=== PATIENT | male | born 1955 | race Caucasian/White ===

== ENCOUNTER 2017-06-28 08:30 | Inpatient (IN) | payer OTHER ==
[2017-06-28 09:09] LABS: ALT (SGPT) 25 U/L (8-55); AST (SGOT) 27 U/L (5-34); Albumin 3.5 g/dL (3.4-4.8); Alkaline Phosphatase 85 U/L (40-150); Anion Gap 14 mmol/L (10-20); BUN (Urea Nitrogen) 35 mg/dL (8.4-25.7); Calc. Creatinine Clearance 0 mL/min (70-130); Carbon Dioxide 21 mmol/L (23-31); Chloride 101 mmol/L (98-107); Estimated GFR-MDRD 21; Glucose 186 mg/dL (80-115); Protein, Total 6.5 g/dL (5.8-8.1); Sodium 133 mmol/L (136-145)
[2017-06-28] MEDS ORDERED: Piperacillin/Tazobactam 4.5 GM in Sodium Chloride 0.9% 100 ML IVPB SCH (09:15)
[2017-06-28 09:23] LABS: Band 65 % (5-11); Hemoglobin 14.3 g/dL (14.0-18.0); Lymphocytes 3 % (21-51); MDiff Complete? YES; Mean Corpuscular HGB CONC 34.5 g/dL (32.0-36.0); Mean Corpuscular Hemoglobin 32.2 pg (27.0-31.0); Mean Corpuscular Volume 93.4 fl (80.0-94.0); Mean Platelet Volume 8.1 fL (7.4-10.4); Metamyelocyte 5 % (0-0); Monocytes 3 % (0-10); Neutrophil 24 % (42-75); PLT Morphology Comment Appears Adequate; Platelet Count 159 thou/uL (130-400); Polychromasia SLIGHT = 2-3 cells (100X) (0-2/hpf); RBC Distribution Width 12.1 % (11.5-14.5); Red Blood Cell (RBC) Count 4.44 mill/uL (4.70-6.10); Reflex for Review?? YES; Vacuoles MODERATE; White Blood Cell (WBC) Count 8.1 thou/uL (4.8-10.8)
--- NOTE | 2017-06-28 09:46 | RAD ---
AP CHEST: Indication: Cough. Comparison: None. IMPRESSION: No consolidation is evident. There is mild cardiomegaly. No pleural effusion is evident. No acute oss eous abnormality is evident. No acute cardiopulmonary abnormality is grossly evident. POS: [facility]
[2017-06-28] MEDS ORDERED: Norepinephrine 8 MG/0.9% NS 250 ML ONE (10:45)
[2017-06-28] MEDS ORDERED: Potassium Chloride 20 MEQ TAB ONE (11:01)
--- NOTE | 2017-06-28 11:47 | ULT ---
TESTICULAR ULTRASOUND: 06/28/2017 HISTORY: Scrotal swelling and pain. TECHNIQUE: Multiple longitudinal and transverse images of the scrotum are obtained using a Multi-Hertz linear ar ray transducer. Real-time, color-flow, and spectral wave-form Doppler analysis demonstrates abnormal thickening of the scrotum, measuring 1.7 cm on the right and 1.3 cm on the left. Small left-sided and right-sided hydroceles are seen. Both testicles are of normal contour, axis, and size. The right testicle measures 2.3 x 3.4 x 2.6 cm , and the left testicle measures 2.8 x 3.7 x 2.1 cm. Good flow is seen in the right and left testicl es. The epididymides are visualized bilaterally. The right epididymis measures 1.3 x 0.8 x 1.0 cm, and t he left epididymis measures 0.8 x 0.7 x 0.5 cm. IMPRESSION: 1. No evidence of testicular masses or lesions. 2. Diffuse scrotal thickening. This may represent cellulitis or an inflammatory process. Correlate with clinical examination. POS: [facility]
[2017-06-28] MEDS ORDERED: Ibuprofen 800 MG TAB ONE (12:06)
[2017-06-28] MEDS ORDERED: Norepinephrine 8 MG/0.9% NS 250 ML IVPB PRN (12:45)
[2017-06-28] MEDS ORDERED: VANCOMYCIN IVPB PRN (12:52)
[2017-06-28 13:01] LABS: Lactic Acid 3.8 mmol/L (0.5-2.2)
[2017-06-28] MEDS ORDERED: Benzonatate 100 MG CAP PO PRN (14:18)
[2017-06-28] MEDS ORDERED: Guaifenesin DM 100-10/5 ML UDCUP PO PRN (14:18)
[2017-06-28 16:16] LABS: Bilirubin Negative (Negative); Blood, Urine Moderate (Negative); Clarity CLOUDY (Clear); Glucose, Urine (Dipstick) Negative (Negative); Leukocyte Small (Negative); Nitrite Negative (Negative); Protein, Urine (Dipstick) 100 mg/dL (Neg-Trace); Specific Gravity, Urine 1.019 (1.002-1.036); Urobilinogen 0.2 mg/dL (0.2-1.0); pH, Urine 5.5 (5.0-9.0)
[2017-06-28] MEDS: Vancomycin HCl 25 MG/ML Oral PO SCH ×2 (16:16→21:58)
[2017-06-28] MEDS: Dextrose 5 % And 0.9 % NaCl 1,000 ML IV SCH (16:17)
[2017-06-28 16:18] LABS: WBC/HPF 21-50 HPF (0-3)
[2017-06-28 16:19] LABS: Pathc Cast-AUWi Flag 3.77 (0-2.49)
[2017-06-28] MEDS: Hydrocortisone Sod Succ/PF 100 mg/2 ml Vial IVP SCH ×2 (16:20→21:59)
[2017-06-28 16:57] LABS: Bacteria/HPF 1+ HPF (None Seen); Hyaline Casts/LPF 0-3 HYALINE CAST LPF (0-3 Hyaline); Manual Microscopic Reviewed? No Path Casts Seen; Renal Epithelial None Seen HPF (0-3); Transitional Epithelial NONE SEEN HPF (0-3)
[2017-06-28] MEDS: Morphine 4 MG/ML VIAL SLOW IVP PRN (17:18)
[2017-06-28] MEDS: Norepinephrine 8 MG in Sodium Chloride 0.9% 250 ML 250 ML IVPB PRN (17:46)
[2017-06-28 18:33] LABS: Lactic Acid 3.2 mmol/L (0.5-2.2)
[2017-06-28] MEDS: Piperacillin/Tazobactam 3.375 GM in Sodium Chloride 0.9% 100 ML IVPB SCH (18:45)
--- NOTE | 2017-06-28 19:02 | ULT ---
ULTRASOUND RENAL BILATERAL STANDARD 06/28/17 HISTORY: Acute kidney injury. COMPARISON: None. FINDINGS: Real time hamilton scale and color evaluation of the kidneys was performed. The hepatic echotexture is diffusely increased. Right kidney measures 12.5 x 5.3 x 5.4 cm without mas s, hydronephrosis or abnormal calcifications. The left kidney measures 12.8 x 5.90 x 5.6 cm without m ass, hydronephrosis or abnormal calcifications. The urinary bladder is not seen and is decompressed w ith Mejia catheter. IMPRESSION: 1. No evidence of obstructive uropathy. 2. Increased hepatic echotexture suggesting steatosis or cirrhosis. POS: [facility]
--- NOTE | 2017-06-28 19:37 | CON ---
DATE OF CONSULTATION: 06/28/2017 SERVICE: Pulmonary Medicine. REASON FOR CONSULTATION: Septic shock. HISTORY OF PRESENT ILLNESS: The patient is a 62-year-old white male with past medical history significant for 7-8 day history of diarrhea. He had a 4-day history of increasing erythema, pain, and swelling in the scrotal region. He did not tell anybody about this and his family. They suggested that he seek medical attention, but he refused. Ultimately, he became disoriented and confused. His walk around his apartment naked. This completely uncharacteristic for him. He was subsequently brought to the Emergency Department where he was found to be hypotensive. He had acute kidney injury and then findings consistent with septic shock. He got over 4 liters of IV fluids. He was given some broad-spectrum antibiotics and put on Levophed. A femoral line was placed. With this, his mentation improved slightly. He denies any current fevers, chills, nausea, vomiting or chest discomfort. He is breathing comfortably, but apparently has been coughing up a significant amount of sputum over the past week or so. PAST MEDICAL HISTORY: 1. Hypertension. 2. Dyslipidemia. 3. Major depressive disorder. PAST SURGICAL HISTORY: Appendectomy. SOCIAL HISTORY: Negative for alcohol, tobacco or illicit drug use. He denies any exposure to chemicals, dust, asbestos, or tuberculosis. FAMILY HISTORY: Noncontributory. ALLERGIES: No known drug allergies. MEDICATION LIST: His inpatient medications were reviewed and modified. REVIEW OF SYSTEMS: General, head, ears, eyes, nose, throat, cardiovascular, respiratory, GI, , musculoskeletal, neurologic and skin is negative except as mentioned in the HPI. PHYSICAL EXAMINATION: VITAL SIGNS: Afebrile, pulse 98, blood pressure 117/74, respirations 24, saturation 100% on room air. GENERAL: The patient is awake and alert. He is conversive. He does not appear to be in any distress other than with manipulation of his general region. HEENT: Normocephalic, atraumatic. Sclerae are white, conjunctivae pink. Oral mucosa is moist without lesions. LUNGS: Excellent air entry. There is minimal dependent crackles present. No prolonged expiratory phase or wheezing is appreciated. HEART: Normal rate, regular. ABDOMEN: Soft, nontender, nondistended. Bowel sounds are positive. MUSCULOSKELETAL: No cyanosis or clubbing. There is no pitting in the bilateral lower extremities. GENITOURINARY: No Mejia. There is dense erythema of the entire scrotum. There is no discharge from the penis and the penis looks like there is no erythema around it. It extends into the gluteal cleft and is more pronounced on the left side. There is a purple unstageable lesion in the left gluteal cleft. MUSCULOSKELETAL: No cyanosis or clubbing. There is no pitting in the bilateral lower extremities. LABORATORY DATA: WBC 8.1, hemoglobin 14.3, platelets 159,000. Band count of 65 % on top of the neutrophil count 24%. He is (03:00) pushing metamyelocytes out into the blood stream. Creatinine 2.99, BUN 35. Basic metabolic profile is otherwise unremarkable except for potassium of 3.3. Lactate is gently down trending to 3.8. Liver function studies are unremarkable. BNP 26.1. Respiratory culture has gram negative rods and a few gram-negative diplococci present. IMAGING: Testicular ultrasound demonstrates no acute abnormality other than thickening of the scrotum consistent with cellulitis. Chest x-ray demonstrates no overt consolidating changes are identified. The cardiac silhouette is enlarged because this is a portable film. ASSESSMENT: 1. Septic shock. 2. Diarrhea. 3. Cellulitis of the scrotum and gluteal cleft. 4. Acute kidney injury. 5. Community-acquired pneumonia, suspected. PLAN: The patient is likely suffering from gram-negative gifty bacteremia. He has already been given Zosyn and vancomycin. I will start p.o. vancomycin while we await culture results from the stool. He really does not have a reason to have his Odilon gangrene or C. diff. That being said, we will empirically treat for C. diff and watch the skin with serial assessments every 2 hours. If there are any signs of evolving erythema, a surgical consultation, and a stat CT of the pelvis with contrast will be provided. I do appreciate that this could worsen her kidney injury, but that is consequence we may have to deal with. I will start up stress doses of steroids, and put the patient on vasopressin if he needs an additional pressor. I will repeat a lactate this evening at 6:00 p.m. We placed a Mejia catheter and he had over 200 mL of urine out. I am hopeful that this represents recovery of kidney injury. We will watch his urine output as time goes on. Currently, we are meeting our goals of resuscitation. We will continue the IV fluids at 100 mL per hour. I will repeat laboratories tomorrow morning. 70 minutes have been devoted to this patient in various activities. I personally reviewed all imaging studies and laboratory data noted within this document. For fifty percent of this time, I was interacting with the patient at the bedside or coordinating care with the care team. For the remainder of the time I was immediately available to the patient in the hospital unit. DELVIS
[2017-06-28] MEDS ORDERED: Vancomycin HCl 1 GM in Premix Bag 1 BAG IVPB SCH (21:00)
--- NOTE | 2017-06-28 21:11 | HP ---
DATE OF ADMISSION: 06/28/2017 CHIEF COMPLAINT: Generalized weakness. HISTORY OF PRESENT ILLNESS: The patient is a 62-year-old male who initially presented to the [facility] with complaints of generalized weakness since Tuesday. The patient also stated of decreased appetit e. The patient also stated that he did have some diarrhea on Tuesday and this morning before coming i o the hospital. The patient also stated that he has been having a cough, which started on Tuesday ; however, he was not coughing up any sputum. The patient states that he did complain of some subjec tive fevers, however, no chills. The patient's ex- who is at the bedside stated that this mornin g, the patient appeared to be more confused and also more weakness. Denies any neck pain, any chest pressure, chest pain, shortness of breath. The patient's ex- who is at the bedside stated that t he patient's son also has been having diarrhea for the past 10 days and has his stool sent out for fu rther evaluation. 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 The patient's ex- further stated that normally people are not allowed to swim in this [place] for various reasons. The patient denies any recent travel, recent pets or any rec ent dental procedures. The patient did state that on Tuesday since he was not feeling well, he took a bath when he noticed that his scrotum was significantly swollen. PAST MEDICAL HISTORY: He has a history of psoriatic arthritis. He is currently off his medications, which is Enbrel. Hypertension and hyperlipidemia. PAST SURGICAL HISTORY: He has had an appendectomy. SOCIAL HISTORY: He drinks 3 or 4 beers in 7 days. Denies any smoking or drug use. FAMILY HISTORY: His mother had diabetes and stroke. Father, he does not know the history of his fat her. REVIEW OF SYSTEMS: The following complete review of systems was all negative except for the ones men tioned above in the HPI. Constitutional: Weight loss or gain, ability to conduct usual activities. Skin: Rash, itching. Eyes: Double vision, pain. ENT/Mouth: Nose bleeding, neck stiffness, pain, tenderness. Cardiovascular: Palpitations, dyspnea on exertion, orthopnea. Respiratory: Shortness of breath, wheezing, cough, hemoptysis, fever or night sweats. Gastrointestinal: Poor appetite, ab dominal pain, heartburn, nausea, vomiting, constipation, or diarrhea. Genitourinary: Urgency, frequ ency, dysuria, nocturia. Musculoskeletal: Pain, swelling. Neurologic/Psychiatric: Anxiety, depres jun. Allergy/Immunologic: Skin rash, bleeding tendency. MEDICATIONS: He is on simvastatin 20 mg daily, lisinopril/hydrochlorothiazide 20/12.5 mg p.o. daily and he is supposed to be on Enbrel, but he stopped it 6 months ago. ALLERGIES: He has got no known drug allergies. PHYSICAL EXAMINATION: VITAL SIGNS: Temperature 98.5, heart rate of 95, blood pressure 101/66, respirations 12 and 99% on r oom air. GENERAL: He is awake, alert and oriented x3. Does not appear in any distress. CARDIOVASCULAR: S1, S2 present. No murmurs, rubs or gallops. LUNGS: Clear to auscultation, rhonchi or wheezes noted. ABDOMEN: Obese. Bowel sounds are present x2. No pain upon palpation. EXTREMITIES: No pitting edema located. : The patient does have significant erythema around his scrotum area and around the shaft of his p iza. No pustules or any abnormalities noted. SKIN: He does have some psoriatic patches all around his bilateral upper extremity and bilateral low er extremity. LABORATORY RESULTS: WBCs of 8.1, hemoglobin of 14.3, his platelets are 159,000, bands of 65. Chemis try, his sodium of 133, potassium of 3.0, chloride of 101, BUN of 35, creatinine of 2.99. His lactic acid was 4.2, glucose was 186. Urine, he did have a small amount of leukocyte esterase, wbc's were 21-50, squamous epithelial cells were 7-10. IMAGING: The patient did have a testicular ultrasound in the ER, which indicated he did have no test icular mass or lesions were noted. He did have diffuse scrotal thickening, which indicated possible cellulitis or inflammatory process. Chest x-ray also was done in the ER, which indicated no consolid ation. He did have mild cardiomegaly. No pleural effusion. ASSESSMENT AND PLAN: The patient is a very pleasant 62-year-old male who presents to the hospital wi complaints of generalized weakness. 1. Septic shock. The patient received about 2.5 liters of IV fluids, had mean arterial pressures le ss than 65, which require the patient to be on Levophed. The patient, however, was awake, alert and able to answer a few questions. The patient has been started on IV antibiotics, Zosyn and vancomycin . Chest x-ray, no acute process. Most likely he does have significant cellulitis of his scrotum are a. The patient is not a diabetic. There was no visible pustular or any drainage noted around his pe nile area and scrotum area. We will continue IV hydration. The patient is currently in the CCU. Ma y require Solu-Cortef or also may be an additional vasopressor to keep mean arterial pressures greate r than 65. 2. Acute kidney injury. The patient's creatinine is 2.99. He has not urinated. We will keep stric t I's and O's. We will check renal ultrasound and continue to monitor. The patient denies any frequ ency or dysuria at home prior to coming to the hospital. 3. Diarrhea, unknown etiology. We will check for leukocyte in the stool and also we will check a st ool culture. 4. Deep venous thrombosis prophylaxis. We will put the patient on subcu heparin.
[2017-06-28] MEDS: Famotidine/PF 20 mg/2ml Vial SLOW IVP SCH (21:59)
[2017-06-28] MEDS: Heparin 5,000 UNITS/ML VIAL SC SCH (21:59)
[2017-06-29] MEDS: Piperacillin/Tazobactam 3.375 GM in Sodium Chloride 0.9% 100 ML IVPB SCH ×4 (00:05→18:56)
[2017-06-29] MEDS: Dextrose 5 % And 0.9 % NaCl 1,000 ML IV SCH ×2 (00:06→14:53)
[2017-06-29] MEDS: Norepinephrine 8 MG in Sodium Chloride 0.9% 250 ML 250 ML IVPB PRN (02:49)
[2017-06-29] MEDS: Hydrocortisone Sod Succ/PF 100 mg/2 ml Vial IVP SCH ×4 (04:06→20:58)
[2017-06-29] MEDS: Vancomycin HCl 25 MG/ML Oral PO SCH (04:06)
[2017-06-29 04:52] LABS: ALT (SGPT) 32 U/L (8-55); AST (SGOT) 29 U/L (5-34); Alkaline Phosphatase 74 U/L (40-150); Anion Gap 12 mmol/L (10-20); BUN (Urea Nitrogen) 37 mg/dL (8.4-25.7); Bilirubin, Total 1.3 mg/dL (0.2-1.2); Calc. Creatinine Clearance 50 mL/min (70-130); Carbon Dioxide 18 mmol/L (23-31); Chloride 112 mmol/L (98-107); Estimated GFR-MDRD 31; Globulin 2.8 g/dL (2.4-3.5); Glucose 149 mg/dL (80-115); Protein, Total 5.8 g/dL (5.8-8.1); Sodium 138 mmol/L (136-145)
[2017-06-29 05:17] LABS: Band 52 % (5-11); Hemoglobin 13.4 g/dL (14.0-18.0); Lymphocytes 2 % (21-51); MDiff Complete? YES; Mean Corpuscular HGB CONC 34.5 g/dL (32.0-36.0); Mean Corpuscular Hemoglobin 32.1 pg (27.0-31.0); Mean Corpuscular Volume 93.1 fl (80.0-94.0); Mean Platelet Volume 7.7 fL (7.4-10.4); Metamyelocyte 5 % (0-0); Monocytes 4 % (0-10); Myelocyte 3 % (0-0); Neutrophil 34 % (42-75); Platelet Count 120 thou/uL (130-400); RBC Distribution Width 12.3 % (11.5-14.5); Red Blood Cell (RBC) Count 4.18 mill/uL (4.70-6.10); White Blood Cell (WBC) Count 16.8 thou/uL (4.8-10.8)
[2017-06-29] MEDS: Heparin 5,000 UNITS/ML VIAL SC SCH ×3 (09:23→20:57)
[2017-06-29] MEDS: Vancomycin HCl 1.5 GM in Sodium Chloride 0.9% 250 ML 300 ML IVPB SCH (09:23)
[2017-06-29] MEDS: Loperamide HCl 2 MG CAP PO PRN (09:47)
[2017-06-29] MEDS: Famotidine/PF 20 mg/2ml Vial SLOW IVP SCH (09:48)
--- NOTE | 2017-06-29 12:09 | PQF ---
DATE: 06-29-17 ATTN: DR. SORAYA CHUNG Please exercise your independent, professional judgment in responding to the clarification form. Clinical indicators are provided on the bottom of this form for your review Please check appropriate box(s): [ ] UTI [ ] Contaminated urine specimen without UTI [ ] Other diagnosis [ x ] Unable to determine In addition, please specify: Present on Admission (POA): [ x ] Yes [ ] No [ ] Unable to determine For continuity of documentation, please document condition throughout progress notes and discharge summary. Thank You. CLINICAL INDICATORS - SIGNS / SYMPTOMS / LABS URINE: 06-28-17: URINE PROTEIN: 100 H URINE KETONES: TRACE H URINE BLOOD: MODERATE H UR LEUKOCYTE ESTERASE: SMALL H URINE RBC: 7-10 H URINE WBC: 21-50 H UR SQUAMOUS EPITH CELLS: 7-10 H URINE BACTERIA: 1+ H TEMP: (ER) 100.4, 102.8, 102.2 RISK FACTORS: H&P: CONFUSED, WEAKNESS, DECREASED APPETITE, DIARRHEA, COUGH , HX OF HTN, HYPERLIPIDEMIA H&P: SEPTIC SHOCK, COMMUNITY ACQUIRED PNEUMONIA SUSPECTED, CELLULITIS TREATMENT: (ER) ZOSYN, VANCOMYCIN, IVF (This form is maintained as a part of the permanent medical record) 2014 [employer] All Rights Reserved ELIAN [email or web address] Office: [phone] DELVIS
[2017-06-29] MEDS ORDERED: Bupivacaine 0.25% HCL 30 ML VIAL ONE (13:44)
[2017-06-29] MEDS ORDERED: Bacitracin Zinc Ointment 30 gm TUBE ONE (13:44)
[2017-06-29] MEDS ORDERED: Ketamine 50 MG/ML VIAL ONE (13:48)
[2017-06-29] MEDS ORDERED: Fentanyl 100 MCG/2 ML VIAL ONE (13:48)
[2017-06-29] MEDS ORDERED: Midazolam HCl 5 mg/5 ml Vial ONE (13:48)
[2017-06-29] MEDS ORDERED: HYDROmorphone 0.5 MG/0.5 ML SYRINGE ONE (13:49)
[2017-06-29] MEDS ORDERED: Norepinephrine 8 MG/0.9% NS 250 ML ONE (14:44)
--- NOTE | 2017-06-29 14:47 | PDOC.PN ---
- Subjective Encounter Start Date: 06/29/17 Encounter Start Time: 13:00 Subjective: pt up in bed states he feels much better - Objective Vital Signs & Weight: Vital Signs (12 hours) Temp Pulse Resp Pulse Ox 06/29/17 12:00 97.9 F 06/29/17 08:00 97.7 F 75 14 95 06/29/17 07:00 97.7 F 06/29/17 04:00 97.8 F Weight Weight 220 lb 10.923 oz Most Recent Monitor Data Heart Rate from ECG 99 NIBP 117/98 NIBP BP-Mean 103 Respiration from ECG 19 SpO2 100 I&O: 06/28/17 06/29/17 06/30/17 06:59 06:59 06:59 Intake Total 1529 100 Output Total 1235 295 Balance 294 -195 Result Diagrams: 06/29/17 04:05 06/29/17 04:05 Phys Exam - Physical Examination HEENT: PERRLA, moist MMs, sclera anicteric, TM's clear, oral pharynx no lesions , 2+ tonsils Neck: no nodes, no JVD, supple, full ROM Respiratory: no wheezing, no rales, no rhonchi, wheezing present, clear to auscultation bilateral Cardiovascular: RRR, no significant murmur, no rub, gallop, irregular Gastrointestinal: soft, non-tender, no distention, positive bowel sounds Musculoskeletal: no edema, pulses present, edema present Deviation from normal: pt's scrotum appears to have a necrotizing area which was not present at -: admission. He has some pain. Dx/Plan - Plan 1) septic shock 2) possible necrotizing fasciitis vs sathya's gangrene 3) leukocytosis 4) htn plan: concern about pt's new physical finding, spoke with Dr pugh in concerns to pt's scrotum changes. will also consult ID. will continue abx for now. pt is still on levophed. stool ecoli and cdiff is negative. * . Review of Systems - Review of Systems Eyes: negative: Pain, Vision Change, Conjunctivae Inflammation, Eyelid Inflammation, Redness, Other ENT: negative: Ear Pain, Ear Discharge, Nose Pain, Nose Discharge, Nose Congestion, Mouth Pain, Mouth Swelling, Throat Pain, Throat Swelling, Other Respiratory: negative: Cough, Dry, Shortness of Breath, Hemoptysis, SOB with Excertion, Pleuritic Pain, Sputum, Wheezing Cardiovascular: negative: chest pain, palpitations, orthopnea, paroxysmal nocturnal dyspnea, edema, light headedness, other Gastrointestinal: negative: Nausea, Vomiting, Abdominal Pain, Diarrhea, Constipation, Melena, Hematochezia, Other Genitourinary: Other (mild pain to his scrotum area) Musculoskeletal: negative: Neck Pain, Shoulder Pain, Arm Pain, Back Pain, Hand Pain, Leg Pain, Foot Pain, Other - Medications/Allergies Allergies/Adverse Reactions: Allergies Allergy/AdvReac Type Severity Reaction Status Date / Time No Known Allergies Allergy Unverified 06/28/17 09:08 Medications: Current Medications Famotidine (Pepcid) 20 mg SLOW IVP 2100 [facility] Heparin Sodium (Porcine) (Heparin) 5,000 units SC TID [facility] Last Admin: 06/29/17 09:23 Dose: 5,000 units Hydrocortisone Sodium Succinate (Solu-Cortef) 50 mg IVP 0400,1000,1600,2200 [facility] Last Admin: 06/29/17 09:24 Dose: 50 mg Piperacillin Sod/Tazobactam (Sod 3.375 gm/ Sodium Chloride) 100 mls @ 200 mls/ hr IVPB Q6HR [facility] Last Admin: 06/29/17 13:03 Dose: 100 mls Norepinephrine Bitartrate 8 mg (/ Sodium Chloride) 258 mls @ 0 mls/hr IVPB INF PRN PRN Reason: Blood Pressure Last Admin: 06/29/17 02:49 Dose: 258 mls Dextrose/Sodium Chloride (D5 0.9% Ns) 1,000 mls @ 100 mls/hr IV .Q10H [facility] Last Admin: 06/29/17 00:06 Dose: 1,000 mls Vasopressin 40 unit/ Sodium (Chloride) 102 mls @ 6 mls/hr IV INF [facility] Vancomycin HCl 1.5 gm/ Sodium (Chloride) 300 mls @ 200 mls/hr IVPB 0900 [facility] Last Admin: 06/29/17 09:23 Dose: 300 mls Loperamide HCl (Imodium) 2 mg PO PRN PRN PRN Reason: Diarrhea/Loose Stools Last Admin: 06/29/17 09:47 Dose: 2 mg Lorazepam (Ativan) 2 mg SLOW IVP Q15MIN PRN PRN Reason: Anxiety/Agitation Miscellaneous Medication (Pharmacy To Dose) 1 each IVPB DAILYPRN PRN PRN Reason: LABS Morphine Sulfate (Morphine) 2 mg SLOW IVP Q2H PRN PRN Reason: Pain Last Admin: 06/28/17 17:18 Dose: 2 mg
[2017-06-29] MEDS ORDERED: Glycopyrrolate 0.2 MG/ML 5 ML SYRINGE ONE (15:02)
[2017-06-29] MEDS ORDERED: PROPOFOL 200 MG/20 ML VIAL ONE (15:02)
[2017-06-29] MEDS ORDERED: Ondansetron HCl/PF 4 MG/2 ML Vial ONE (15:02)
[2017-06-29] MEDS ORDERED: Succinylcholine Chloride 20 MG/ML 10 ml SYRINGE FS ONE (15:02)
[2017-06-29] MEDS ORDERED: Sodium Hypochlorite 0.25% Solution 480 ML BOT TOP PRN (15:05)
[2017-06-29] MEDS ORDERED: SUGAMMADEX SODIUM 200 MG/2 ML VIAL ONE (16:51)
[2017-06-29] MEDS ORDERED: HYDROmorphone 2 MG/ML VIAL SLOW IVP PRN (16:56)
[2017-06-29] MEDS ORDERED: Promethazine HCl 25 MG/ML VIAL SLOW IVP PRN (16:56)
[2017-06-29] MEDS ORDERED: Meperidine HCl/PF 25 MG/ML VIAL SLOW IVP PRN (16:56)
[2017-06-29] MEDS ORDERED: Morphine Sulfate 2 MG/ML SYRINGE SLOW IVP PRN (16:56)
[2017-06-29] MEDS ORDERED: Albuterol Sulfate 1.25 MG/3 ML NEB ONE (16:59)
[2017-06-29] MEDS ORDERED: Albuterol Sulfate 2.5 mg/3 ml Neb NEB SCH (17:00)
--- NOTE | 2017-06-29 17:08 | RAD ---
AP VIEW OF THE CHEST: 06/29/17 INDICATION: Post line placement. IMPRESSION: There has been interval placement of a left subclavian central venous catheter. No pneumothorax is ev ident. Cardiomegaly persists. No pleural effusion is evident. IMPRESSION: New left subclavian central venous catheter placement as above. No pneumothorax. POS: [facility]
[2017-06-29 17:10] LABS: CO2 Tension 47.4 mmHg (35.0-45.0); O2 Tension (PaO2) 96.7 mmHg (80.0-100.0)
[2017-06-29 17:11] LABS: Actual Bicarbonate (HCO3a) 18.2 mEq/L (22-26); Base Excess (BEa) -9.7 mEq/L (0 (+/-) 2.5); Hematocrit-ABG 40.6 % (42.0-52.0); Hemoglobin (Hb) 13.9 g/dL (14.0-18.0)
[2017-06-29 17:12] LABS: Puncture Site LINE
--- NOTE | 2017-06-29 17:14 | CON ---
DATE OF CONSULTATION: 06/29/2017 at 1:38 p.m. DATE OF HOSPITALIZATION: 06/28/2017 CHIEF COMPLAINT: Scrotal cellulitis now with black skin. HISTORY OF PRESENT ILLNESS: Mr. Mono Avery is a pleasant 62-year-old retired white male with a his tory of psoriatic arthritis who has been recently treated with Enbrel. He apparently had about 5 yea rs' worth of treatment, has been off the medication for about 6 months. The patient over the last th ree to four days developed generalized weakness, decreased appetite and some diarrhea starting on 06/24/2017. The patient ultimately presented to the Emergency Department of [facility] on 06/28/2017 with complaints of generalized weakness secondary to the diarrhea. The patient had been complaining of subjective fevers and also scrotal pain. The patient also noticed sw elling of his scrotum in addition. He does not have a history of diabetes mellitus although there is a family history of it. He specifically denies a cigarette smoking history. The patient noticed te nderness and swelling of the scrotum and has been admitted due to elevated white count indicating a s eptic state. He had been treated with antibiotics and during observation, his scrotal cellulitis has progressed with a now the presence of necrosis of large area in the midline. The patient reports he has only focal pain in his scrotum and in no other location. The patient does have some areas of th e skin on his buttocks that have changed color as well. PAST MEDICAL HISTORY: 1. Psoriatic arthritis, currently off Enbrel x6 months. 2. Hypertension. 3. Hyperlipidemia. PAST SURGICAL HISTORY: The patient has had an appendectomy. SOCIAL HISTORY: The patient is retired and drinks 3 to 4 beers every 7 days. There is no personal h istory of cigarette smoking or drug use. FAMILY MEDICAL HISTORY: The patient's mother had diabetes mellitus and stroke. The patient's father 's medical history is unknown. REVIEW OF SYSTEMS: Constitutional: The patient reports subjective fevers and focal scrotal pain. T here is no report of recent weight loss or weight gain. Skin: The patient has had some rashes and i tching. Does have a history of psoriatic arthritis of having skin changes secondary to that. Head, ears, nose and throat: Negative. Cardiovascular: Negative for current palpitations. He does have weakness with exertion. Pulmonary: Negative. Gastrointestinal: Positive for poor appetite, abdomi nal pain, heartburn, nausea, vomiting, and diarrhea. Genitourinary: Positive for urinary urgency an d frequency. Does report scrotal swelling as well as scrotal discomfort. Musculoskeletal: The caterina ent reports some weakness of his extremities secondary to his debilitated state. Skin: The patient has a general bleeding tendency on the skin and some changes to his skin that occurs with his psoriat ic arthritis. The patient's scrotal skin has apparently changed in color over the last 24 hours base d on observation by skilled nurses. PHYSICAL EXAMINATION: GENERAL: This is a pleasant white male who is awake and alert. He is a reasonable historian. Nurse s note that he does have some degree of confusion and does not appear to be adequately oriented to co nsent for himself today. I did obtain assent from the patient for the procedure for today and he agr ees with proceeding with intervention. HEAD, EARS, NOSE AND THROAT: Extraocular movements are intact. Sclerae anicteric. Oropharynx is cl ear. NECK: Supple. LUNGS: Clear to auscultation bilaterally. CARDIAC: The patient has borderline tachycardic rate. ABDOMEN: Soft and nontender. There are no palpable masses. BACK: No costovertebral angle tenderness. The patient does have several areas of skin changes parti cularly around the anus area which has some redness secondary to the patient's recent diarrhea and po ssibly secondary to psoriatic arthritis. There does not appear to be any necrotic tissue posteriorly . GENITOURINARY: The patient's phallus is without lesion, indwelling Mejia catheter is in place and dr bentonns straw-coloured urine. The scrotum is edematous and swollen. Overall coloration in the scrotum and the penile skin is red with the glans being more pale color. In the midline of the scrotum, ther e is a necrotic area which measures approximately 6 inches x 4 inches where the tissue is clearly tur zhang black and my patient's nurses reported this was not black yesterday. The tissue was previously e xquisitely tender in the midline and the patient reports it is not tender there. There is evidence o f cellulitis in the tissues surrounding necrotic tissue. Digital rectal examination is performed, fi nds the prostate gland measuring about 30 g in size, smooth, anodular, nontender. There are no domin ant masses present. EXTREMITIES: Appear within normal limits. RADIOLOGIC STUDIES: The patient has undergone a renal ultrasound study performed on 06/28/2017. Thi s demonstrated no evidence of obstructive uropathy. Did demonstrate increased hepatic echo textures suggestive of steatosis or psoriasis. A testicular ultrasound was performed on 06/28/2017. This jesse dy showed no evidence of testicular mass or lesion and did demonstrate diffuse scrotal thickening, queen ggestive of cellulitis or inflammatory process. LABORATORY STUDIES: The patient's white count on admission on 06/28/2017 showed white wound of 8.1 t housand with 24% neutrophils and 65% bands. The bandemia is moderately improved today at 52% bands a nd 34% neutrophils, still quite elevated for the bandemia. Total white count is now increased to 16. 8 thousand. IMPRESSION AND PLAN: 1. 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 I recommended debridement as well as appropriate wound packing for the scrotal necrosis. The tissue itself does not appear to be overly fluctuant. There are areas that he does have possibility of absc ess in the patient's scrotal wall or ongoing cellulitis process. At the present time, I think debrid ement is the appropriate intervention. 2. Possibility of gastrointestinal process. The patient did have diarrhea for several days leading up to the current presentation. It is unclear if there is an active process in the patient's abdomen and I am recommending proceeding immediately to the operating room for debridement of the obviously necrotic tissue as this seems to be the patient's primary are of concern. He is complaining of pain in the scrotum only, not in the abdomen to any significant degree and does not have necrotic tissue a s well as cellulitis and edema of the scrotum itself. Findings overall, highly concerning for rapidl y progressive Odilon's gangrene. The patient assented to the procedure and the patient's next of k in, his sister, is signing consent, risks and benefits of intervention were discussed as well as pote ntial cause of medical issues and natural progress progression of Odilon's gangrene which has a gra ve prognosis of left untreated and significant morbidity even if treated. Overall initial consultation assessment time on this patient who is in intensive care unit for manage ment and critical care evaluation assessment time is 55 minutes.
--- NOTE | 2017-06-29 17:36 | PRG ---
DATE OF SERVICE: 06/29/2017 SERVICE: Pulmonary Medicine. INTERVAL HISTORY: Patient is doing great from a respiratory standpoint. His pain in his groin area has improved dramatically. He denies any chest pain, nausea or vomiting. Unfortunately, there has been progression in changes in the scrotal region. There is now a purple hue on the anterior scrotum. Hopefully, this does not track back to the area of purple hue in the gluteal cleft. That being said, hemodynamically, he is much more stable. PHYSICAL EXAMINATION: VITAL SIGNS: Afebrile, pulse 99, blood pressure 117/98, respirations 19, saturation 100% on room air. GENERAL: The patient is awake, alert, no apparent distress. LUNGS: Decent air entry bilaterally. There is no prolonged expiratory phase, wheezing, rhonchi, or crackles present. HEART: Normal rate, regular. ABDOMEN: Soft, nontender, nondistended. Bowel sounds are positive. MUSCULOSKELETAL: No cyanosis or clubbing. No pitting in the bilateral lower extremities. NEUROLOGIC: Grossly nonfocal. GENITOURINARY: Mejia catheter in place. The erythema seems to be regressing, but there is a new purple discoloration in the anterior scrotum which matches the lesion in the cleft. That being said, there is no advancing front of the erythema. If anything, it seems to be regressing slightly. LABORATORY DATA: WBC 16.8, hemoglobin 13.4, platelets 120,000. Creatinine 2.14 , BUN 37. Basic metabolic profile is otherwise unremarkable. Liver function studies are unremarkable as well. Lactate continues to trend downward. IMAGING: Renal ultrasound demonstrates no evidence of obstructive uropathy. Increased hepatic echotexture suggests steatosis or cirrhosis. ASSESSMENT: 1. Septic shock, stabilizing. 2. Cellulitis of the scrotum and gluteal cleft, possible Odilon's gangrene. 3. Diarrhea, improving. 4. Acute kidney injury. 5. Community-acquired pneumonia, suspected. PLAN: I will drop the p.o. vancomycin. We will continue the IV vancomycin and Zosyn. consultation was placed because of the new concerning changes to the anterior scrotum. A CT of the pelvis will be ordered if needed. Pulmonary Critical Care will continue to follow very closely during this case and he will certainly remain in the ICU for the time being. We were going to find out what occurred there. DELVIS
[2017-06-29 18:00] LABS: Actual Bicarbonate (HCO3a) 17.6 mEq/L (22-26); Base Excess (BEa) -7.9 mEq/L (0 (+/-) 2.5); CO2 Tension 36.2 mmHg (35.0-45.0); O2 Tension (PaO2) 67.7 mmHg (80.0-100.0); pH, Arterial 7.31 (7.35-7.45)
[2017-06-29 18:01] LABS: Calcium, Ionized 0.9 mmol/L (1.12-1.30); Puncture Site LINE
[2017-06-29] MEDS: Sodium Chloride 0.45% 1,000 ML IV SCH (18:56)
--- NOTE | 2017-06-29 19:54 | OP ---
DATE OF PROCEDURE: 06/29/2017 PREPROCEDURE DIAGNOSES: 1. 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 2. Loculated hydrocele. 3. Scrotal cellulitis. PROCEDURES PERFORMED: 1. Wide debridement of scrotal Odilon's gangrene to deep fascia 19554. 2. Excision of benign skin lesion greater than 4 cm 40083. SPECIMENS REMOVED: Include the scrotal skin and the left and right tunica vaginalis which was necrot ic. We obtained a culture from the wound as well. ESTIMATED BLOOD LOSS: Less than 50 mL OPERATIVE FINDINGS: Patient had necrotic scrotum area measuring approximately 4 x 6 inches in the ov erall dimensions of the scrotum tissue in the midline along the raphae and off to the patient's left side anteriorly and towards the right side posteriorly were necrotic. Patient also had a large locul ated hydrocele on each side. BRIEF HISTORY AND INDICATION FOR PROCEDURE: Mr. Mono Avery is a 62-year-old retired white male with a history of psoriatic arthritis for which he was on Enbrel for many years, recently stopped about 6 months ago, but has had some signs and symptoms of immunosuppression secondary to that therapy. Marnie chaney presented to the emergency department after approximately 1-week period of diarrhea with a new-on set scrotal pain on 06/28/2017, was admitted to the hospital for evaluation and assessment as well as treatment. The patient during observation developed necrotic skin on the scrotum between the evenin g hours of 06/28/2017 and a.m. hours of 06/29/2017. I was contacted by phone in approximately 11:45 on 06/29/2017 identified the patient is likely having Odilon's gangrene and did evaluate the alyx t after arrival at the hospital and felt to the findings suggestive a necrosis of the scrotum in the midline, did have large amount of scrotal edema and cellulitis and what appeared to be on appropriate antibiotic coverage. Patient continued to report severe pain in the scrotum and due to the pain sym ptoms in combination with necrotic skin. We opted to proceed to the operating room for exploration. TECHNICAL PROCEDURE: Patient was appropriately identified in the Intensive Care Unit and subsequentl y was transported to the operative suite, placed in the supine position. General anesthesia was esta blished. Patient had a right femoral line which is passing through the area of the proximal cellulit is as well. The patient's scrotum was obviously enlarged and there was necrotic skin in the midline measuring about 4 x 6 inches. After induction of general anesthesia, we repositioned the patient in supine lithotomy position and prepped and draped in usual sterile fashion. Indwelling Mejia catheter 16-Lebanese in size was removed. We later replaced that with an 18-Lebanese catheter at the end of the procedure. I performed a normal sterile prep and drape and then proceeded with excision of necrotic tissue using a Bovie knife at setting of 50 cut 50 coag. Patient essentially had minimal to no bleed ing during the procedure. We excised the necrotic portion of the patient's midline scrotal raphae ti ssue sent this for permanent section. We carried the incision down to the deep fascia, and identify the patient's testes bilaterally. We broke up a large number of loculated hydroceles on each side. We drained all the fluid. We then irrigated the wound with peroxide 3% and then subsequently irrigat ed with saline. A Dio drain was placed in the left and right hemiscrotum. Testes and surroundin g tissue in the left and right hemiscrotum were then wrapped using Dakin's solution loaded Kerlix lenard ssing for a wet-to-dry. We tried to pack the wound open as best as possible. At the close of the pr ocedure, patient's right femoral line was removed. A new left subclavian central line was placed by Dr. Fong during the course of the procedure. The existing femoral line site was dressed using an o cclusive type dressing to prevent air embolization. Patient's Mejia catheter was replaced with an 18 -Lebanese silicone Mejia catheter in place to gravity bag. This was secured to the patient's left leg with micro foam tape. A sterile dressing consisting of an athletic supporter with Kerlix fluffs was placed over the patient's wound and the [place] drains. COMPLICATIONS: None evident. ESTIMATED BLOOD LOSS: Less than 50 mL. RESUSCITATION FLUIDS: All crystalloid intraoperatively. Please see anesthesia notes for fluids. LOCAL ANESTHETIC: None. We did infiltrate the wound due to tenuous apparent blood supply to the scr otum.
[2017-06-29] MEDS ORDERED: Famotidine/PF 20 mg/2ml Vial SLOW IVP SCH (21:00)
[2017-06-29] MEDS: Lorazepam 2 MG/ML VIAL SLOW IVP PRN ×2 (22:02→23:59)
[2017-06-30] MEDS: Piperacillin/Tazobactam 3.375 GM in Sodium Chloride 0.9% 100 ML IVPB SCH ×5 (00:40→23:37)
[2017-06-30] MEDS: Hydrocortisone Sod Succ/PF 100 mg/2 ml Vial IVP SCH ×3 (03:48→15:17)
[2017-06-30] MEDS: Lorazepam 2 MG/ML VIAL SLOW IVP PRN ×3 (03:48→12:12)
[2017-06-30 04:54] LABS: Anion Gap 12 mmol/L (10-20); BUN (Urea Nitrogen) 39 mg/dL (8.4-25.7); Calc. Creatinine Clearance 57 mL/min (70-130); Carbon Dioxide 21 mmol/L (23-31); Chloride 114 mmol/L (98-107); Estimated GFR-MDRD 36; Glucose 97 mg/dL (80-115); Magnesium 1.7 mg/dL (1.6-2.6); Phosphorus 3.2 mg/dL (2.3-4.7); Potassium 3.6 mmol/L (3.5-5.1); Sodium 143 mmol/L (136-145)
[2017-06-30 05:41] LABS: Band 26 % (5-11); Hemoglobin 12.6 g/dL (14.0-18.0); Lymphocytes 7 % (21-51); MDiff Complete? YES; Mean Corpuscular HGB CONC 33.6 g/dL (32.0-36.0); Mean Corpuscular Hemoglobin 31.5 pg (27.0-31.0); Mean Corpuscular Volume 93.7 fl (80.0-94.0); Mean Platelet Volume 7.8 fL (7.4-10.4); Metamyelocyte 3 % (0-0); Monocytes 3 % (0-10); Neutrophil 60 % (42-75); PLT Morphology Comment Appears Decreased; Platelet Count 106 thou/uL (130-400); RBC Distribution Width 12.6 % (11.5-14.5); RBC Morphology Normal; Reactive Lymphocytes 1 % (0-10); Red Blood Cell (RBC) Count 3.99 mill/uL (4.70-6.10); White Blood Cell (WBC) Count 15.8 thou/uL (4.8-10.8)
[2017-06-30] MEDS: Sodium Chloride 0.45% 1,000 ML IV SCH ×3 (06:45→23:35)
[2017-06-30] MEDS: Heparin 5,000 UNITS/ML VIAL SC SCH ×3 (09:03→21:20)
[2017-06-30] MEDS: Vancomycin HCl 1.5 GM in Sodium Chloride 0.9% 250 ML 300 ML IVPB SCH (09:09)
[2017-06-30] MEDS: Morphine 4 MG/ML VIAL SLOW IVP PRN (12:10)
--- NOTE | 2017-06-30 13:19 | CON ---
DATE OF CONSULTATION: 06/30/2017 REASON FOR CONSULTATION: Odilon's gangrene. HISTORY OF PRESENT ILLNESS: A 62-year-old patient first admission to this hospital who has a history of psoriatic arthritis on Enbrel, hypertension, hyperlipidemia, and few days ago developed what he d escribes as a pimple in the scrotal tissue. He proceeded to try to squeeze it, could not get any exu date out of it. Subsequently, there was progressively worsening pain and swelling and then he had so me general malaise, some cough and subjective fevers. On the day of admission, he was confused and zoila granados, was found naked wandering through the house and he was brought to the emergency room and admitte d. PHYSICAL EXAMINATION: VITAL SIGNS: Initial temperature 98.5, heart rate 95, BP 101/66, respirations 12, O2 sat 99%. GENERAL: He appeared awake and oriented. LUNGS: Normal. HEART: Normal. ABDOMEN: Normal. SKIN: There was evidence of erythema and pain around the scrotal area in the shaft of the penis. He did have evidence of psoriasis around the upper extremities. LABORATORY DATA: Initial white cell count 8.1, platelets 159,000. Sodium 133, creatinine 2.99, lact ic acid 4.2, glucose 186. Ultrasound of the testicle showed no evidence of lesion or torsion. There was evidence of diffuse scrotal thickening. Chest x-ray did not show any consolidation. A consulta tion with Urology was obtained and Dr. Putnam completed debridement procedure yesterday and there was evidence of Odilon's gangrene. The operative report was reviewed. The scrotum was enlarged with n ecrotic skin in the midline measuring 4 x 6 inches. Indwelling Mejia catheter was removed and an 18 Palestinian catheter was placed at the end of the procedure. Excision of necrotic tissue was carried out with knife. Midline scrotal raphe tissues sent for pathology. Incision carried out to the deep fasc ia. Large number of loculated hydrocele were broken out in each side. All fluid was drained. Penro se drain was placed in hemiscrotum and testes. Surrounding tissue wrapped with Dakin solution, loade d Kerlix dressing. Right femoral line was removed and a subclavian central line was placed. At the end of the procedure, the Mejia catheter was replaced. Currently, patient has a facemask. He is wu ke. He is oriented, follows commands, pleasant, not agitated. He denies any headaches, no visual sy mptoms, sore throat, odynophagia or dysphagia. Mild dyspnea, no chest pain, no abdominal pain. Mode rate pain in the scrotal area. No joint symptoms and no neurological symptoms. PAST MEDICAL HISTORY: Psoriatic arthritis, psoriasis on Enbrel, hypertension, hyperlipidemia. PAST SURGICAL HISTORY: Appendectomy. SOCIAL HISTORY: Drinks daily. Never a smoker. He works with fixing machines. FAMILY HISTORY: Diabetes mellitus and CVA. ALLERGY HISTORY: Negative. PHYSICAL EXAMINATION: VITAL SIGNS: T-max 98.7, blood pressure 120/60, pulse 105, respirations 25, O2 saturation 95%. SKIN: Exam shows area of erythema in the scrotal area on arrival as documented by picture. Currentl y, he has an openly packed wound on subclavian central line, on Mejia catheter. No lymphadenopathy. HEENT: Ocular movements conjugate. Oral cavity with quite a few teeth in place with expected decay and gum disease. Few missing teeth. Oral mucosa normal. No lesions. NECK: Supple, jugular vein distention. LUNGS: Symmetric air entry, no wheezing. CARDIOVASCULAR: S1, S2, regular rate. No S3, S4, no murmurs. ABDOMEN: Soft, nondistended or tender. No ascites. No bladder distention, no organomegaly. EXTREMITIES: No joint inflammatory activity noted at this time. Pulses 1+ in dorsalis pedis. No ed rivka. He is able to move extremities with limitations imposed by his acute illness, but his cognitive function appears improved. He knows his name and knows where he is. LABORATORY DATA: White cell count is up to 16.8 and down to 15.8, hemoglobin 12.6, platelets 106,000 with 26% bands. Chemistry with creatinine down from 2.99-1.89, sodium 143. Liver profile with bili cervantes up to 1.3. Transaminases and alkaline phosphatase normal. Albumin down to 3.0. Urinalysis wi th 21-50 wbc's. Microbiology: We have pending cultures from the scrotum. Gram stain with few gram positive cocci in pairs and chains. ASSESSMENT: Psoriatic arthritis, and psoriasis on Enbrel and now with scrotal inflammatory process w ith evidence of necrosis, status post incision and drainage. DISCUSSION: This type of processes usually polymicrobial with anaerobes, microaerophilic and Strepto cocci gram negative rods. Sometimes we can have a monomicrobial infection with group A Streptococcus or group B strep as well as Staphylococcus aureus. Continue current regimen, wound care and monitor blood cultures. Duration of therapy to be determined by the identity of the organism, progress of t he clinical findings and results of the blood cultures.
--- NOTE | 2017-06-30 14:15 | PDOC.PN ---
- Subjective Encounter Start Date: 06/30/17 Encounter Start Time: 11:30 Subjective: pt up in bed drowsy, per nurse pt received ativan - Objective Vital Signs & Weight: Vital Signs (12 hours) Temp Pulse Resp Pulse Ox 06/30/17 11:57 99.8 F H 06/30/17 10:54 99.9 F H 06/30/17 08:00 99.6 F 120 H 24 H 98 06/30/17 07:00 99.6 F 06/30/17 04:00 97.5 F L Weight Weight 220 lb 14.4 oz Most Recent Monitor Data Heart Rate from ECG 98 NIBP 85/56 NIBP BP-Mean 66 Respiration from ECG 11 SpO2 100 I&O: 06/29/17 06/30/17 07/01/17 06:59 06:59 06:59 Intake Total 1529 968 400 Output Total 1235 1085 620 Balance 895 -792 -289 Result Diagrams: 06/30/17 04:34 06/30/17 04:34 Phys Exam - Physical Examination HEENT: PERRLA, moist MMs, sclera anicteric, TM's clear, oral pharynx no lesions , 2+ tonsils Neck: no nodes, no JVD, supple, full ROM Respiratory: no wheezing, no rales, no rhonchi, wheezing present, clear to auscultation bilateral Cardiovascular: RRR, no significant murmur, no rub, gallop, irregular Gastrointestinal: soft Musculoskeletal: no edema, pulses present, edema present Deviation from normal: drowsy, very hard to arouse, pt is being put on bipap Dx/Plan - Plan 1) septic shock possible necrotizing fasciitis vs sathya's gangrene 2) micaela 3) leukocytosis 4) htn 5) thrombocytopenia plan: concern about pt's new physical finding, spoke with Dr pugh in concerns to pt's scrotum changes. will also consult ID. will continue abx for now. pt is still on levophed. stool ecoli and cdiff is negative. 06/30 micaela is improving with iv hydration, continue iv hydration. Id consulted for abx managment. pt is currently on bipap. will continue to hold antihypertensives. low platelets most likely due to his sepsis. pt is on heparin for dvt ppx. will monitor platelets. * . Review of Systems - Review of Systems Other: unable to obtain - Medications/Allergies Allergies/Adverse Reactions: Allergies Allergy/AdvReac Type Severity Reaction Status Date / Time No Known Allergies Allergy Unverified 06/28/17 09:08 Medications: Current Medications Famotidine (Pepcid) 20 mg SLOW IVP 2100 [facility] Last Admin: 06/29/17 20:58 Dose: Not Given Heparin Sodium (Porcine) (Heparin) 5,000 units SC TID [facility] Last Admin: 06/30/17 09:03 Dose: 5,000 units Hydrocortisone Sodium Succinate (Solu-Cortef) 50 mg IVP 0400,1000,1600,2200 [facility] Last Admin: 06/30/17 09:03 Dose: 50 mg Piperacillin Sod/Tazobactam (Sod 3.375 gm/ Sodium Chloride) 100 mls @ 200 mls/ hr IVPB Q6HR [facility] Last Admin: 06/30/17 11:22 Dose: 100 mls Norepinephrine Bitartrate 8 mg (/ Sodium Chloride) 258 mls @ 0 mls/hr IVPB INF PRN PRN Reason: Blood Pressure Last Admin: 06/29/17 02:49 Dose: 258 mls Vasopressin 40 unit/ Sodium (Chloride) 102 mls @ 6 mls/hr IV INF MAXWELL Vancomycin HCl 1.5 gm/ Sodium (Chloride) 300 mls @ 200 mls/hr IVPB 0900 [facility] Last Admin: 06/30/17 09:09 Dose: 300 mls Sodium Chloride (1/2 Normal Saline) 1,000 mls @ 75 mls/hr IV .[id number] [facility] Last Admin: 06/30/17 06:45 Dose: 1,000 mls Loperamide HCl (Imodium) 2 mg PO PRN PRN PRN Reason: Diarrhea/Loose Stools Last Admin: 06/29/17 09:47 Dose: 2 mg Lorazepam (Ativan) 2 mg SLOW IVP Q15MIN PRN PRN Reason: Anxiety/Agitation Last Admin: 06/30/17 12:12 Dose: 2 mg Miscellaneous Medication (Pharmacy To Dose) 1 each IVPB DAILYPRN PRN PRN Reason: LABS Morphine Sulfate (Morphine) 2 mg SLOW IVP Q2H PRN PRN Reason: Pain Last Admin: 06/30/17 12:10 Dose: 2 mg
[2017-06-30] MEDS ORDERED: Magnesium 2 GM/NS 0.9% 100 ML 2 GM in Premix Bag 1 BAG IVPB SCH (15:45)
--- NOTE | 2017-06-30 17:32 | CON ---
DATE OF CONSULTATION: 06/30/2017 CRITICAL CARE NOTE REASON FOR CONSULTATION: 1. 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 2. Loculated hydrocele. 3. Scrotal cellulitis. 4. Sepsis presentation. INTERVAL EVENTS: The patient underwent wide debridement of scrotal Odilon's gangrene after my init ial evaluation of him yesterday on 06/29/2017. PHYSICAL EXAMINATION: VITAL SIGNS: Temperature is 99.9 F at 10:54 in the morning. He never had an actual fever overnight after his operative procedure. Current blood pressure is 119/81, pulse is 122, respiratory rate 22, O2 saturation 99%. GENERAL: The patient is observed supine in bed in the Intensive Care Unit. He appears somewhat yudith janneth at examination. He does appropriately answered questions regarding pain, which he reports none t anita and contrast yesterday. He does not report abdominal pain. HEAD, EYES, EARS, NOSE AND THROAT: Sclerae are anicteric. Oropharynx is clear. NECK: Supple. LUNGS: Clear bilaterally. CARDIAC: There is a tachycardic rate. ABDOMEN: Soft and nontender. There are scars present. GENITOURINARY: A Mejia catheter is in place and is draining straw-colored urine. Scrotal examinatio n finds a midline scrotal raphae incision with excision of previous necrotic tissue. There has been minor progression overnight of some of the scrotal septum tissue to more dark in color, it does not a ppear to be grossly necrotic or purulent, edges of the wound appeared to be in reasonably good condit ion. Overall swelling edema of the scrotal wall was much reduced from yesterday. Testes are plainly visible, still within the tunica vaginalis. The Kerlix dressing is changed during the course of the examination. The Washburn drains bilaterally remain in place. There is no significant large amounts of drainage observed. LABORATORY STUDIES: White count is slightly down to 15,800 today. The patient has relatively more n eutrophils now at 60%, up from 34 yesterday and lesser number of bands down to 26 today from 52 yeste rday. Hematocrit and hemoglobin appeared relatively stable with a hemoglobin of 12.6 and hematocrit 37.4. Serum chemistries show the patient's creatinine continued to improve now 1.89 down from 2.99 o n 06/28/2017. Blood urea nitrogen is 39, not significantly improved from admission. The patient's s mayela potassium down to 3.6 from 4 yesterday. Microbiology: Bacterial cultures from the scrotum tissue shows no growth at 24 hours. A urine cultu re is negative at 36 hours. A stool C. difficile toxin test is negative. ASSESSMENT AND PLAN: 1. Presumed Odilon's gangrene of the scrotum with necrosis of the midline scrotal raphae area and a gross appearance of a cellulitis. This appears improved on current antibiotic therapy and after queen rgical debridement with removal of a large portion of the midline scrotal raphae measuring 4 x 6 inch es. Today, we note significant reduction overall swelling. The patient is no longer reporting pain in the scrotum. Some question as to the exact cause of this event. The patient has been on Enbrel, which may act as an immunosuppressant. Overall, the patient's wounds not have a significant odor to them. Methicillin-resistant Staphylococcus aureus occasionally has this presentation. This could al so be a scrotal cellulitis with the use of pressors due to his sepsis presentation resulting necrosis of the scrotum in the midline. Present time, pathology remains pending, cultures also still pending . 2. Incision and drainage. The patient appears to be appropriately covered with current antibiotics, which I would recommend continuing. 3. Wound care. I recommend the patient's scrotal wound will be cared for by Wound Care. I do not r ecommend a wound VAC on the testicles. The patient will be [facility] care when he has recovered from his acute sepsis type presentation. 4. Mental status: The patient appears to be either sedated or having mental status changes associat ed with his general illness. This would appropriately be followed continuing in the Intensive Care U nit. Over 38 minutes of critical care time spent in evaluation, assessment and treatment of Mr. Mono Avery today.
--- NOTE | 2017-06-30 18:03 | PRG ---
DATE OF SERVICE: 06/30/2017 SERVICE: Pulmonary Medicine. INTERVAL HISTORY: The patient is doing fine from respiratory standpoint. Mentation glynn, things are kind of deplorable. He is hallucinating. He is having witnessed obstructive apnea events at bedside. He will wake up and make some incomprehensible sounds, but then kind of drift back off to sleep. With significant stimulation, he will follow some simple commands. He is having episodes of agitation, hallucination, followed by restlessness, followed by hypersedation. PHYSICAL EXAMINATION: VITAL SIGNS: Afebrile, pulse 96, blood pressure 107/71, respirations 11, saturation 97% on room air. GENERAL: The patient is awake, alert, in no apparent distress. LUNGS: Decent air entry bilaterally. Dependent crackles are minimal. HEART: Normal rate, regular. ABDOMEN: Soft, nontender, nondistended. Bowel sounds are positive. MUSCULOSKELETAL: No cyanosis or clubbing. There is no pitting in the bilateral lower extremities. NEUROLOGIC: Grossly nonfocal. LABORATORY DATA: WBC 15.8, hemoglobin 12.6, platelets 106,000 and down trending , band count is 26%. A pH 7.31, pCO2 of 36, pO2 of 67. Creatinine continues to improve to 1.89, BUN 39, bicarbonate 21, chloride is 114, sodium 143. All culture results remain negative to date. ASSESSMENT: 1. Septic shock, stabilizing. 2. Odilon's gangrene, status post debridement. 3. Diarrhea, stable. 4. Acute kidney injury. 5. Community-acquired pneumonia. 6. Obstructive sleep apnea. PLAN: We will continue the IV vancomycin and Zosyn. The patient has a new onset of delirium. We will give him a very small dose of Seroquel at night. I will put him on CPAP whenever he is sleeping, as he is having severe obstructive apnea events. He will remain in the ICU for the next 24-48 hours until some of these things clear. Hopefully, the patient will be able to survive this event. He appears to be doing a little bit better, but Odilon's gangrene has a significant mortality associated with it. BLANED
[2017-06-30] MEDS ORDERED: Famotidine/PF 20 mg/2ml Vial SLOW IVP SCH (21:00)
[2017-07-01 04:36] LABS: Anion Gap 10 mmol/L (10-20); BUN (Urea Nitrogen) 43 mg/dL (8.4-25.7); Calc. Creatinine Clearance 61 mL/min (70-130); Calcium 7.2 mg/dL (7.8-10.44); Carbon Dioxide 22 mmol/L (23-31); Chloride 115 mmol/L (98-107); Estimated GFR-MDRD 40; Glucose 70 mg/dL (80-115); Potassium 3.2 mmol/L (3.5-5.1); Sodium 144 mmol/L (136-145)
[2017-07-01] MEDS: Piperacillin/Tazobactam 3.375 GM in Sodium Chloride 0.9% 100 ML IVPB SCH ×2 (05:22→11:36)
[2017-07-01 05:40] LABS: Band 24 % (5-11); Hemoglobin 11.8 g/dL (14.0-18.0); Lymphocytes 4 % (21-51); MDiff Complete? YES; Mean Corpuscular HGB CONC 34.7 g/dL (32.0-36.0); Mean Corpuscular Hemoglobin 32.4 pg (27.0-31.0); Mean Corpuscular Volume 93.5 fl (80.0-94.0); Mean Platelet Volume 7.9 fL (7.4-10.4); Metamyelocyte 2 % (0-0); Monocytes 6 % (0-10); Myelocyte 1 % (0-0); Neutrophil 63 % (42-75); PLT Morphology Comment Appears Decreased; Platelet Count 96 thou/uL (130-400); RBC Distribution Width 12.8 % (11.5-14.5); RBC Morphology Normal; Red Blood Cell (RBC) Count 3.65 mill/uL (4.70-6.10); White Blood Cell (WBC) Count 18.4 thou/uL (4.8-10.8)
[2017-07-01] MEDS: Famotidine 20 MG TAB PO SCH ×2 (08:30→22:03)
[2017-07-01] MEDS: Heparin 5,000 UNITS/ML VIAL SC SCH ×3 (08:30→22:03)
[2017-07-01 08:41] LABS: Vancomycin, Trough 11.5 ug/mL
[2017-07-01] MEDS ORDERED: Vancomycin HCl 1 GM in Premix Bag 1 BAG IVPB SCH (09:00)
[2017-07-01] MEDS: Morphine 4 MG/ML VIAL SLOW IVP PRN ×2 (09:25→19:29)
[2017-07-01] MEDS ORDERED: ISOVUE-370 76%-LOCM 1 ML ONE (11:23)
[2017-07-01] MEDS: Sodium Chloride 0.45% 1,000 ML IV SCH ×2 (11:36→14:04)
--- NOTE | 2017-07-01 11:57 | PDOC.PN ---
- Subjective Encounter Start Date: 07/01/17 Encounter Start Time: 10:30 Subjective: pt in bed drowsy, arousable and follows commands - Objective Vital Signs & Weight: Vital Signs (12 hours) Temp Pulse Resp Pulse Ox 07/01/17 11:46 99.2 F 07/01/17 11:00 99.0 F 07/01/17 08:00 99.3 F 90 18 97 07/01/17 04:00 98.2 F Weight Admit Weight 223 lb Weight 223 lb 4.8 oz Most Recent Monitor Data Heart Rate from ECG 99 NIBP 233/143 NIBP BP-Mean 196 Respiration from ECG 24 SpO2 97 I&O: 06/30/17 07/01/17 07/02/17 06:59 06:59 06:59 Intake Total 968 2622 1950 Output Total 1085 1465 445 Balance -117 1157 1505 Result Diagrams: 07/02/17 05:35 07/02/17 05:35 Phys Exam - Physical Examination HEENT: PERRLA, moist MMs, sclera anicteric, TM's clear, oral pharynx no lesions , 2+ tonsils Neck: no nodes, no JVD, supple, full ROM Respiratory: no wheezing, no rales, no rhonchi, wheezing present, clear to auscultation bilateral Cardiovascular: RRR, no significant murmur, no rub, gallop, irregular Gastrointestinal: soft, positive bowel sounds -: pt has dressing around his scrotum with drains. Dx/Plan - Plan 1) septic shock possible necrotizing fasciitis vs sathya's gangrene 2) micaela 3) leukocytosis 4) htn 5) thrombocytopenia plan: concern about pt's new physical finding, spoke with Dr pugh in concerns to pt's scrotum changes. will also consult ID. will continue abx for now. pt is still on levophed. stool ecoli and cdiff is negative. 06/30 micaela is improving with iv hydration, continue iv hydration. Id consulted for abx managment. pt is currently on bipap. will continue to hold antihypertensives. low platelets most likely due to his sepsis. pt is on heparin for dvt ppx. will monitor platelets * .07/01 intraoperative cx of scrotum indicated streptococcus pyogenase. pt on clindamycin and ceftriaxone. Review of Systems - Review of Systems Other: unable to do due to decreased LOC - Medications/Allergies Allergies/Adverse Reactions: Allergies Allergy/AdvReac Type Severity Reaction Status Date / Time No Known Allergies Allergy Unverified 06/28/17 09:08 Medications: Current Medications Famotidine (Pepcid) 20 mg PO BID [facility] Last Admin: 07/01/17 22:03 Dose: 20 mg Heparin Sodium (Porcine) (Heparin) 5,000 units SC TID [facility] Last Admin: 07/01/17 22:03 Dose: 5,000 units Sodium Chloride (1/2 Normal Saline) 1,000 mls @ 100 mls/hr IV .Q10H [facility] Last Admin: 07/02/17 06:56 Dose: 1,000 mls Ceftriaxone Sodium 2 gm/ (Sodium Chloride) 100 mls @ 200 mls/hr IVPB 1600 [facility] Last Admin: 07/01/17 15:27 Dose: 100 mls Clindamycin Phosphate/Dextrose (600 mg/ Device) 50 mls @ 100 mls/hr IVPB Q6HR [facility] Last Admin: 07/02/17 06:00 Dose: 50 mls Loperamide HCl (Imodium) 2 mg PO PRN PRN PRN Reason: Diarrhea/Loose Stools Last Admin: 06/29/17 09:47 Dose: 2 mg Lorazepam (Ativan) 2 mg SLOW IVP Q15MIN PRN PRN Reason: Anxiety/Agitation Last Admin: 07/01/17 19:29 Dose: 2 mg Morphine Sulfate (Morphine) 2 mg SLOW IVP Q2H PRN PRN Reason: Pain Last Admin: 07/01/17 19:29 Dose: 2 mg Potassium Chloride (K-Dur) 40 meq PO Q4H [facility] Stop: 07/02/17 11:31 Quetiapine Fumarate (Seroquel) 25 mg PO HS [facility] Last Admin: 07/01/17 22:03 Dose: 25 mg
[2017-07-01] MEDS ORDERED: Furosemide 20 MG/2 ML VIAL SLOW IVP SCH (12:30)
--- NOTE | 2017-07-01 13:40 | CT ---
CT PELVIS WITH CONTRAST: HISTORY: Post surgical abscess. Scrotal wash-out on 06/28/2017. FINDINGS: There is an open wound of the scrotum with surgical drains. Low grade edema along the retroperitoneu m, pericolic gutters, and iliac vasculature. Mildly prominent superficial inguinal and external sofia c adenopathy, likely reactive. Moderate osteoarthrosis of the lower lumbar spine. No fracture. No malalignment. No evidence for o steomyelitis. No evidence for pyomyositis. IMPRESSION: Open wound along the scrotum with post surgical drains. There is reactive inguinal and pelvic adenop athy, as well as small volume retroperitoneal paracolic gutter fluid, likely from the scrotal infecti ous process. POS: JACK
--- NOTE | 2017-07-01 13:48 | PRG ---
DATE OF SERVICE: 07/01/2017 SERVICE: Pulmonary Medicine. INTERVAL HISTORY: The patient is doing fine from a respiratory standpoint. He remains on room air. He has no complaints of chest pain, nausea, vomiting. He really does not have any pain complaints w hatsoever. His mentation is much improved today. He uses CPAP last night and got better at rest. PHYSICAL EXAMINATION: VITAL SIGNS: Afebrile with a T-max of 99.9, pulse 99, blood pressure 145/77, respirations 24, satura tion 97% on room air. GENERAL: The patient is awake, alert, no apparent distress. LUNGS: Decent air entry. Dependent crackles are minimal. HEART: Normal rate, regular. ABDOMEN: Soft, nontender, nondistended. Bowel sounds are positive. MUSCULOSKELETAL: No cyanosis or clubbing. There is no pitting in the bilateral lower extremities. NEUROLOGIC: Grossly nonfocal. LABORATORY DATA: WBC 18.4 and up trending. Hemoglobin 11.8, platelets 96,000 and down trending stil l. Band count is roughly stable at 24, neutrophils 63%. Creatinine continues to trend downward to 1 .75, BUN 43, chloride 115, potassium 3.2. Vancomycin trough 11.5. Scrotal abscess is growing Strept ococcus pyogenes in 2/. All other culture results are negative to date except for respiratory cultu re that came up with Haemophilus influenza type 1. ASSESSMENT: 1. Septic shock, resolved. 2. Odilon gangrene, status post debridement of the scrotal tissue. 3. Diarrhea, resolving. 4. Acute kidney injury. 5. Community-acquired pneumonia. 6. Obstructive sleep apnea, witnessed at bedside to be fairly severe. DISCUSSION AND PLAN: Because the patient's band count is smoldering, and that lesion on his backside is still present and not really getting much better. I am going to send the patient down for a CT o f the pelvis. I will replace his potassium today. Pulmonary Critical Care will continue to follow a long and I would like that the patient remain in the ICU for the time being. He will continue using his CPAP at night and as needed during sleep.
[2017-07-01] MEDS: cefTRIAXone\\ROCEPHIN 2 GM in Sodium Chloride 0.9% 100 ML IVPB SCH (15:27)
--- NOTE | 2017-07-01 16:45 | PRG ---
DATE OF SERVICE: 07/01/2017 SUBJECTIVE: Mr. Avery continues in ICU. He is not intubated. He is awake, but still needs a BiPAP. There has been some extension of the erythema noted below. No chest pain, no abdominal pain. OBJECTIVE: VITAL SIGNS: T-max 99.8, blood pressure 118/65, pulse 89, respirations 18, O2 sat 97. SKIN: Shows a little bit of extension of inflammatory change with induration over suprapubic area. LUNGS: With symmetric air entry. HEART: S1, S2, regular rate. ABDOMEN: Soft, not distended. NEUROLOGIC: Follows commands. LABORATORY DATA: The white cell count is 18.4, hemoglobin 11, platelets 96,000, 24% bands. Creatini ne is down to 1.75, sodium 144, potassium 3.2. Microbiology with Streptococcus pyogenes from 2 sampl es from the scrotal tissue. The pathology of the surgical specimen shows gangrenous necrosis of skin. ASSESSMENT AND DISCUSSION: Psoriatic arthritis, on Enbrel, now with a necrotizing fasciitis, scrotal tissue secondary to group A Streptococcus. We will switch him to clindamycin and Rocephin. Continu e other measures.
[2017-07-01] MEDS: Clindamycin/D5W 600 MG in Premix Bag 1 BAG IVPB SCH (17:12)
[2017-07-01] MEDS: Lorazepam 2 MG/ML VIAL SLOW IVP PRN (19:29)
[2017-07-02] MEDS: Clindamycin/D5W 600 MG in Premix Bag 1 BAG IVPB SCH ×5 (01:49→23:47)
[2017-07-02] MEDS: Sodium Chloride 0.45% 1,000 ML IV SCH ×2 (02:39→06:56)
[2017-07-02 06:03] LABS: Anion Gap 11 mmol/L (10-20); BUN (Urea Nitrogen) 48 mg/dL (8.4-25.7); Calc. Creatinine Clearance 61 mL/min (70-130); Calcium 7.3 mg/dL (7.8-10.44); Carbon Dioxide 23 mmol/L (23-31); Chloride 112 mmol/L (98-107); Estimated GFR-MDRD 39; Glucose 76 mg/dL (80-115); Sodium 143 mmol/L (136-145)
[2017-07-02 06:17] LABS: Band 21 % (5-11); Hemoglobin 11.6 g/dL (14.0-18.0); Hypochromia SLIGHT = 6-15 cells (100X) (0-5/hpf); Lymphocytes 8 % (21-51); MDiff Complete? YES; Mean Corpuscular Hemoglobin 31.8 pg (27.0-31.0); Mean Corpuscular Volume 93.4 fl (80.0-94.0); Mean Platelet Volume 8.1 fL (7.4-10.4); Monocytes 7 % (0-10); Myelocyte 1 % (0-0); Neutrophil 63 % (42-75); PLT Morphology Comment Appears Decreased; Platelet Count 93 thou/uL (130-400); RBC Distribution Width 13.1 % (11.5-14.5); Red Blood Cell (RBC) Count 3.63 mill/uL (4.70-6.10); White Blood Cell (WBC) Count 12.5 thou/uL (4.8-10.8)
[2017-07-02] MEDS ORDERED: CCU Electrolyte Replacement 1 EACH FS ONE (08:41)
[2017-07-02] MEDS ORDERED: Potassium Phosphate 15 MMOL in Sodium Chloride 0.9% 250 ML 250 ML IV PRN (08:49)
[2017-07-02] MEDS ORDERED: CCU ELECTROLYTE REPLACEMENT PROTOCOL FS PRN (08:49)
[2017-07-02] MEDS ORDERED: Potassium Chloride 20 MEQ TAB PO PRN (08:49)
[2017-07-02] MEDS ORDERED: Potassium Chloride 40 MEQ in Sodium Chloride 0.9% 250 ML 250 ML IVPB PRN (08:49)
[2017-07-02] MEDS ORDERED: Magnesium Oxide 400 MG TAB PO PRN (08:49)
[2017-07-02] MEDS ORDERED: Magnesium 2 GM/NS 0.9% 100 ML 2 GM in Premix Bag 1 BAG IVPB PRN (08:49)
[2017-07-02] MEDS ORDERED: Potassium Phosphate 9 MMOL in Sodium Chloride 0.9% 100 ML IVPB PRN (08:49)
[2017-07-02] MEDS ORDERED: Potassium Phosphate 12 MMOL in Sodium Chloride 0.9% 250 ML 250 ML IV PRN (08:49)
[2017-07-02] MEDS: Famotidine 20 MG TAB PO SCH ×3 (09:04→21:23)
[2017-07-02] MEDS: Potassium Chloride 20 MEQ TAB PO SCH ×3 (09:04→13:18)
[2017-07-02] MEDS: Lorazepam 2 MG/ML VIAL SLOW IVP PRN ×4 (09:04→23:47)
[2017-07-02] MEDS: Heparin 5,000 UNITS/ML VIAL SC SCH ×3 (09:05→21:23)
[2017-07-02] MEDS: Morphine 4 MG/ML VIAL SLOW IVP PRN ×4 (09:21→21:23)
[2017-07-02] MEDS: Loperamide HCl 2 MG CAP PO PRN (09:25)
[2017-07-02] MEDS ORDERED: Lidocaine Viscous Sol 2% 15 ml UD Cup SSP SCH (10:45)
--- NOTE | 2017-07-02 11:11 | PRG ---
DATE OF SERVICE: 07/02/2017 SUBJECTIVE: The patient is extubated. He wears CPAP at night for OLVIN. He is quite encephalopathic, threatening nurses at times and he has been placed in 4-point restraints secondary to danger to hims elf and others. OBJECTIVE: VITAL SIGNS: Temperature 97.9, pulse 79, blood pressure 136/78, O2 sat 97%. A 24-hour intake 5546, output 3300. HEENT: Unremarkable. NECK: No JVD. LUNGS: Clear without wheezing. CARDIAC: S1 and S2 regular. ABDOMEN: Soft. EXTREMITIES: He has drains in his groin area from his Odilon's gangrene. LABORATORY DATA: White blood cell count 12.5, hematocrit 34, platelet count 93. Sodium 143, potassi um 3, chloride 112, CO2 of 23, BUN 48, creatinine 1.7, glucose 76. ASSESSMENT: 1. Odilon's gangrene. 2. Septic shock. 3. Diarrhea. 4. Acute kidney injury. 5. Community-acquired pneumonia. 6. Obstructive sleep apnea. PLAN: His electrolytes will be replaced. He will remain in the ICU to receive IV antibiotics. He n eeds temporary restraint. His prognosis is guarded.
--- NOTE | 2017-07-02 14:24 | PDOC.PN ---
- Subjective Encounter Start Date: 07/02/17 Encounter Start Time: 09:45 Subjective: pt up in bed drowsy, received some sedation prior to his wound vac - Objective Vital Signs & Weight: Vital Signs (12 hours) Temp Pulse Resp Pulse Ox 07/02/17 11:00 98.4 F 07/02/17 08:00 98.4 F 92 18 99 07/02/17 07:00 98.0 F 07/02/17 02:45 88 Weight Admit Weight 223 lb Weight 223 lb 12.307 oz Most Recent Monitor Data Heart Rate from ECG 90 NIBP 114/71 NIBP BP-Mean 84 Respiration from ECG 17 SpO2 98 I&O: 07/01/17 07/02/17 07/03/17 06:59 06:59 06:59 Intake Total 2622 5546 Output Total 1465 3300 440 Balance 1157 2246 -440 Result Diagrams: 07/02/17 05:35 07/02/17 05:35 Dx/Plan - Plan 1) septic shock sathya's gangrene 2) hypokalemia 3) leukocytosis 4) acute delirum 5) thrombocytopenia 6) micaela ( unknown baseline) plan: concern about pt's new physical finding, spoke with Dr pugh in concerns to pt's scrotum changes. will also consult ID. will continue abx for now. pt is still on levophed. stool ecoli and cdiff is negative. 06/30 micaela is improving with iv hydration, continue iv hydration. Id consulted for abx managment. pt is currently on bipap. will continue to hold antihypertensives. low platelets most likely due to his sepsis. pt is on heparin for dvt ppx. will monitor platelets * .07/01 intraoperative cx of scrotum indicated streptococcus pyogenase. pt on clindamycin and ceftriaxone. * 07/02 s/p debridement and wound vac placed today on pt's wound. ct pelvic indicated inguinal adenopathy. will increase seroquel to 50mg qhs, will replace electrolytes. adequate output. Review of Systems - Review of Systems Other: unable to perform - Medications/Allergies Allergies/Adverse Reactions: Allergies Allergy/AdvReac Type Severity Reaction Status Date / Time No Known Allergies Allergy Unverified 06/28/17 09:08 Medications: Current Medications Famotidine (Pepcid) 20 mg PO BID [facility] Last Admin: 07/02/17 10:50 Dose: Not Given Heparin Sodium (Porcine) (Heparin) 5,000 units SC TID [facility] Last Admin: 07/02/17 09:05 Dose: 5,000 units Ceftriaxone Sodium 2 gm/ (Sodium Chloride) 100 mls @ 200 mls/hr IVPB 1600 [facility] Last Admin: 07/01/17 15:27 Dose: 100 mls Clindamycin Phosphate/Dextrose (600 mg/ Device) 50 mls @ 100 mls/hr IVPB Q6HR [facility] Last Admin: 07/02/17 13:17 Dose: 50 mls Potassium Chloride 40 meq/ (Sodium Chloride) 270 mls @ 135 mls/hr IVPB ASDIR PRN PRN Reason: FOR SERUM K+ 2.5 - 3.5 Potassium Chloride 40 meq/ (Device) 100 mls @ 50 mls/hr IVPB ASDIR PRN PRN Reason: FOR SERUM K+ 2.5 - 3.5 Magnesium Sulfate 1 gm/ Sodium (Chloride) 102 mls @ 102 mls/hr IV PRN PRN PRN Reason: MAG LEVEL 1.4 - 2.0 Magnesium Sulfate 2 gm/ Device 100 mls @ 100 mls/hr IVPB ASDIR PRN PRN Reason: MAGNESIUM < 1.4 Potassium Phosphate 9 mmol/ (Sodium Chloride) 103 mls @ 25.75 mls/hr IVPB ASDIR PRN PRN Reason: Phosphate 1.0-1.8 Potassium Phosphate 12 mmol/ (Sodium Chloride) 254 mls @ 63.5 mls/hr IV ASDIR PRN PRN Reason: Serum phosphate 0.5-0.9 Potassium Phosphate 15 mmol/ (Sodium Chloride) 255 mls @ 63.75 mls/hr IV ASDIR PRN PRN Reason: Serum Phos < 0.5 Potassium Chloride/Sodium Chloride (Ns 0.9% W/ 20 Meq Kcl) 1,000 ml in 1,000 mls @ 75 mls/hr IV .[id number] [facility] Potassium Chloride 20 meq/ (Device) 100 mls @ 25 mls/hr IVPB Q2H [facility] Stop: 07/02/17 17:59 Loperamide HCl (Imodium) 2 mg PO PRN PRN PRN Reason: Diarrhea/Loose Stools Last Admin: 06/29/17 09:47 Dose: 2 mg Lorazepam (Ativan) 2 mg SLOW IVP Q15MIN PRN PRN Reason: Anxiety/Agitation Last Admin: 07/02/17 14:10 Dose: 2 mg Magnesium Oxide (Magnesium Oxide) 400 mg PO BIDPRN PRN PRN Reason: FOR SERUM MAG 1.4 - 2.0 Magnesium Oxide (Magnesium Oxide) 800 mg PO PRN PRN PRN Reason: FOR SERUM MAG < 1.4 Miscellaneous Medication (Phos-Nak) 1 pkt PO TIDPRN PRN PRN Reason: FOR PHOS LEVEL 1.0 - 1.8 Miscellaneous Medication (Phos-Nak) 2 pkt PO TIDPRN PRN PRN Reason: FOR PHOS LEVEL 0.5 - 1.0 Morphine Sulfate (Morphine) 2 mg SLOW IVP Q2H PRN PRN Reason: Pain Last Admin: 07/02/17 10:35 Dose: 2 mg Ccu Electrolyte (Replacement Protocol) 0 each FS PRN PRN PRN Reason: FOR ELECTROLYTE REPLACEMENT Potassium Chloride (K-Dur) 40 meq PO ASDIR PRN PRN Reason: FOR SERUM K+ 2.5 - 3.5 Potassium Chloride (Klor-Con) 40 meq PER TUBE ASDIR PRN PRN Reason: FOR SERUM K+ 2.5-3.5 Quetiapine Fumarate (Seroquel) 50 mg PO HS [facility]
--- NOTE | 2017-07-02 14:45 | PRG ---
DATE OF SERVICE: 07/02/2017 evaluation requested by wound care service. HISTORY OF PRESENT ILLNESS: Mr. Avery is a 62-year-old male, who was seen by Dr. Putnam this week as he presented with scrotal Odilon's gangrene on 2017. He underwent wide debridement of his scrotum, has been managed by wound care service to wet-to-dry once a day. Infectious Disease has been following on Rocephin and clindamycin. He is currently afebrile, vital signs are stable. I was called by the Wound Care Service as there was significant concern regarding necrotic tissue. Patient is in all 4 restraints, and has been combative. Previous rectal tube has been pulled out. There has been fecal soilage of his scrotal wound/perineum. PHYSICAL EXAMINATION: VITAL SIGNS: He is afebrile 97.9, 2L, 136/78, 97% on room air. He has an indwelling Mejia catheter. I's and O's 5546 and 3300 out, clear yellow. Gen: Despite 4 point restraints, patient is combative. Verbally inappropriate, threatening staff. ABDOMEN: Soft, nontender, and nondistended. Wound care team is at bedside. Bedside procedure, wound inspection. Edges of the skin demonstrate necrosis. This is just confined to the edge of the scrotal incision. There is erythema extending just above the pubic symphysis; however no crepitus fluctuance of the lower abdomen perineum. Reactive scrotal edema is present. His Brixey drains are dislodged outside the scrotum.. Bilateral scrotal incision in the inferior aspect of the scrotum has Brixey, which has been pulled out. I subsequently removed it completely; as this communicates easily with the main scrotal wound. Probing of the wound upper towards the inguinal canal demonstrates it tracks up to the level of the pubic symphysis not further. There is no pustular/ or significant foul- smelling drainage. There was devitalized tissue in the lateral edges of the dartos fascia, which was debrided. Testes appear viable, with intact tunica vaginalis. The nonviable skin edges were debrided at bedside. Given that he has had fecal soilage, suboptimal treatment with wet-to-dry, wound VAC is to be placed. Urinary diversion with indwelling urethral Mejia catheter is to continue. Informed nursing staff to replace his rectal tube to keep fecal soilage away from the wound VAC. Wound culture demonstrated strep pyogenous . IMPRESSION AND PLAN: Mr. Avery is a 62-year-old male, who presented with scrotal Odilon's gangrene, status post wide debridement by Dr. Putnam on 2017. His wound is suboptimally addressed with wet to dry, moreover there has been fecal soilage. As such, wound VAC is placed; will cont Tuesday, , and Tuesday schedule. Recent pelvic CT demonstrates no significant pelvic abscess of concern. He is clinically stable with no significant fever, leukocytosis. Continue current antibiotic regimen, will provide dose of vancomycin. Continue broad-spectrum antibiotic therapy, as Odilon's gangrene usually involves polymicrobial organisms. If ongoing concern regarding fecal soilage, diverging colostomy , suprapubic tube is to be considered. 45 minutes spent with patient at bedside, direct patient care. [facility]
[2017-07-02] MEDS: NS 0.9% w/ 20 MEQ KCL 1,000 ML/1,000 ML BAG IV SCH (15:12)
[2017-07-02] MEDS ORDERED: Vancomycin HCl 1 GM in Premix Bag 1 BAG IVPB SCH (15:15)
[2017-07-02] MEDS: Potassium Chloride 20 MEQ in Premix Bag 1 BAG IVPB SCH ×2 (15:38→17:01)
[2017-07-02] MEDS: cefTRIAXone\\ROCEPHIN 2 GM in Sodium Chloride 0.9% 100 ML IVPB SCH (15:39)
--- NOTE | 2017-07-02 17:37 | EKG ---
Test Reason : SEPSIS Blood Pressure : / mmHG Vent. Rate : 119 BPM Atrial Rate : 119 BPM P-R Int : 162 ms QRS Dur : 096 ms QT Int : 306 ms P-R-T Axes : 069 038 051 degrees QTc Int : 430 ms Sinus tachycardia Junctional ST depression, probably normal Borderline ECG Confirmed by AMBER GANNON ([id number]), newspaper editor DAMIEN DEY ([id number]) on 07/02/2017 5:37:13 PM Referred By: Confirmed By:AMBER GANNON
[2017-07-03 03:41] LABS: Band 23 % (5-11); Eosinophils 3 % (0-10); Hemoglobin 10.7 g/dL (14.0-18.0); Lymphocytes 27 % (21-51); MDiff Complete? YES; Mean Corpuscular Hemoglobin 31.3 pg (27.0-31.0); Mean Corpuscular Volume 94.8 fl (80.0-94.0); Mean Platelet Volume 8.3 fL (7.4-10.4); Metamyelocyte 3 % (0-0); Monocytes 3 % (0-10); Neutrophil 41 % (42-75); PLT Morphology Comment Appears Decreased; Platelet Count 119 thou/uL (130-400); RBC Distribution Width 13.3 % (11.5-14.5); Red Blood Cell (RBC) Count 3.43 mill/uL (4.70-6.10); White Blood Cell (WBC) Count 11.7 thou/uL (4.8-10.8)
[2017-07-03] MEDS: NS 0.9% w/ 20 MEQ KCL 1,000 ML/1,000 ML BAG IV SCH (04:17)
[2017-07-03] MEDS: Lorazepam 2 MG/ML VIAL SLOW IVP PRN ×2 (04:48→13:56)
[2017-07-03] MEDS: Clindamycin/D5W 600 MG in Premix Bag 1 BAG IVPB SCH ×3 (06:00→16:50)
[2017-07-03] MEDS: Morphine 4 MG/ML VIAL SLOW IVP PRN ×3 (08:11→21:41)
[2017-07-03] MEDS: Heparin 5,000 UNITS/ML VIAL SC SCH ×3 (08:16→21:39)
[2017-07-03 08:38] LABS: Anion Gap 9 mmol/L (10-20); BUN (Urea Nitrogen) 51 mg/dL (8.4-25.7); Calc. Creatinine Clearance 67 mL/min (70-130); Calcium 7.2 mg/dL (7.8-10.44); Carbon Dioxide 24 mmol/L (23-31); Chloride 117 mmol/L (98-107); Estimated GFR-MDRD 44; Glucose 64 mg/dL (80-115); Potassium 3.7 mmol/L (3.5-5.1); Sodium 146 mmol/L (136-145)
[2017-07-03] MEDS ORDERED: Famotidine/PF 20 mg/2ml Vial SLOW IVP SCH (09:45)
--- NOTE | 2017-07-03 11:11 | PRG ---
DATE OF SERVICE: 07/03/2017 SUBJECTIVE: This patient remains confused. He has been using CPAP at night for OLVIN. He is requirin g restraints to keep from harming himself and harming others. PHYSICAL EXAMINATION: VITAL SIGNS: Temperature 97.9, pulse 104, blood pressure 169/86. A 24-hour intake 2634, output 2390 . HEENT: Unremarkable. NECK: No JVD. LUNGS: Fairly clear anteriorly. CARDIOVASCULAR: S1, S2 regular. ABDOMEN: Soft. EXTREMITIES: No edema. He still has a surgical dressing over his Odilon's gangrene site. LABORATORY DATA: White blood cell count 11.7, hematocrit 32.5, platelet count 119. Sodium 146, pota ssium 3.7, chloride 117, CO2 of 24, BUN 51, creatinine 1.6, glucose 64. ASSESSMENT: 1. Odilon's gangrene. 2. Septic shock, which is improved. 3. Diarrhea. 4. Acute kidney injury. 5. Developing hypernatremia. 6. Pneumonia. 7. Obstructive sleep apnea. PLAN: The patient is going to receive IV Haldol for a psychosis. His fluids have been switched to N S with 20 K, but probably need to go to half normal given the development of hypernatremia.
[2017-07-03] MEDS: Haloperidol Lactate 5 MG/ML VIAL IM PRN ×2 (11:18→21:41)
[2017-07-03] MEDS: 1/2 NS w/KCL 20 mEq 1,000 ML IV SCH ×2 (11:19→21:54)
[2017-07-03] MEDS: Famotidine 20 MG TAB PO SCH (14:17)
--- NOTE | 2017-07-03 15:14 | PRG ---
DATE OF SERVICE: 07/03/2017 Mr. 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 The patient on four-point restraints due to combativeness. Per nursing staff, has been trying to spit at nursing staff. Currently sedated, moving all extremities. PHYSICAL EXAMINATION: VITAL SIGNS: Stable, 97.9. I's and O's, urine output 2390, clear dilute, indwelling Mejia catheter in place. ABDOMEN: Soft. Mejia catheter and wound VAC is in place. Rectal tube remains. The demarcation of the cellulitic changes of the pubic region is improved with less erythema. Decreased erythema of the scrotum. No fluctuance or induration of the perineum. Wound VAC has a good seal. Wound culture final demonstrates Strep pyogenes. LABORATORY DATA: White count has decreased from 18, 12, to 11.7; hemoglobin 10.7. Creatinine 1.6. IMPRESSION AND PLAN: A 62-year-old male presents with scrotal Odilon gangrene , status post wide debridement. The patient doing well with wound VAC. Iwound care should be in 48 hours. Therefore, his wound VAC will be changed tomorrow and will be on schedule Tuesday, Tuesday, Tuesday. Continue broad- spectrum antibiotics for Infectious Disease due to Streptococcus pyogenes, currently on Rocephin and clindamycin. Condition remains guarded. MTDD
[2017-07-03] MEDS: cefTRIAXone\\ROCEPHIN 2 GM in Sodium Chloride 0.9% 100 ML IVPB SCH (15:29)
--- NOTE | 2017-07-03 16:39 | PDOC.PN ---
- Subjective Encounter Start Date: 07/03/17 Encounter Start Time: 10:20 Pt seen for followup re; acute delirium. Not answering questions reliably, unable to complete ROS. - Objective MAR Reviewed: Yes Vital Signs & Weight: Vital Signs (12 hours) Temp 07/03/17 07:00 97.9 F Weight Admit Weight 223 lb Weight 222 lb 3.615 oz Most Recent Monitor Data Heart Rate from ECG 89 NIBP 126/73 NIBP BP-Mean 112 Respiration from ECG 17 SpO2 100 I&O: 07/02/17 07/03/17 07/04/17 06:59 06:59 06:59 Intake Total 5546 2634 60 Output Total 3300 2390 370 Balance 2246 244 -310 Result Diagrams: 07/03/17 03:23 07/03/17 06:58 Additional Labs: Accuchecks 07/03/17 09:54 POC Glucose 69 L EKG Reviewed by me: Yes (Tele: NSR) Phys Exam - Physical Examination Obese HEENT: moist MMs, sclera anicteric, oral pharynx no lesions, 2+ tonsils Neck: no nodes, no JVD, supple, full ROM Respiratory: no wheezing, no rales, no rhonchi, clear to auscultation bilateral Cardiovascular: RRR, no rub S1, S2 Gastrointestinal: soft, non-tender, no distention, positive bowel sounds Wound vac+; Mejia+ Neurological: moves all 4 limbs Psychiatric: normal affect Deviation from normal: Oriented to person and place, not to time Deviation from normal: Wound vac+ Dx/Plan (1) Acute delirium Code(s): R41.0 - DISORIENTATION, UNSPECIFIED Status: Acute Comment: Likely multifactorial. Continue IV antibiotics as below. Continue to orient patient, continue to be on lookout for other causes. (2) Odilon gangrene Code(s): N49.3 - ODILON GANGRENE Status: Acute Comment: s/p surgery, continue IV antibiotics as below (3) DAMIAN (acute kidney injury) Code(s): N17.9 - ACUTE KIDNEY FAILURE, UNSPECIFIED Status: Acute Comment: Creatinine improving, continue IV hydration (4) Pancytopenia Code(s): D61.818 - OTHER PANCYTOPENIA Status: Acute Comment: likely due to sepsis, continue to monitor blood counts (5) Hypokalemia Code(s): E87.6 - HYPOKALEMIA Status: Resolved - Plan * . Review of Systems - Medications/Allergies Allergies/Adverse Reactions: Allergies Allergy/AdvReac Type Severity Reaction Status Date / Time No Known Allergies Allergy Unverified 06/28/17 09:08 Medications: Current Medications Famotidine (Pepcid) 20 mg SLOW IVP BID [facility] Haloperidol Lactate (Haldol) 4 mg IM Q6H PRN PRN Reason: Agitation Last Admin: 07/03/17 11:18 Dose: 4 mg Heparin Sodium (Porcine) (Heparin) 5,000 units SC TID [facility] Last Admin: 07/03/17 13:56 Dose: 5,000 units Ceftriaxone Sodium 2 gm/ (Sodium Chloride) 100 mls @ 200 mls/hr IVPB 1600 [facility] Last Admin: 07/03/17 15:29 Dose: 100 mls Clindamycin Phosphate/Dextrose (600 mg/ Device) 50 mls @ 100 mls/hr IVPB Q6HR [facility] Last Admin: 07/03/17 11:20 Dose: 50 mls Potassium Chloride 40 meq/ (Sodium Chloride) 270 mls @ 135 mls/hr IVPB ASDIR PRN PRN Reason: FOR SERUM K+ 2.5 - 3.5 Potassium Chloride 40 meq/ (Device) 100 mls @ 50 mls/hr IVPB ASDIR PRN PRN Reason: FOR SERUM K+ 2.5 - 3.5 Magnesium Sulfate 1 gm/ Sodium (Chloride) 102 mls @ 102 mls/hr IV PRN PRN PRN Reason: MAG LEVEL 1.4 - 2.0 Magnesium Sulfate 2 gm/ Device 100 mls @ 100 mls/hr IVPB ASDIR PRN PRN Reason: MAGNESIUM < 1.4 Potassium Phosphate 9 mmol/ (Sodium Chloride) 103 mls @ 25.75 mls/hr IVPB ASDIR PRN PRN Reason: Phosphate 1.0-1.8 Potassium Phosphate 12 mmol/ (Sodium Chloride) 254 mls @ 63.5 mls/hr IV ASDIR PRN PRN Reason: Serum phosphate 0.5-0.9 Potassium Phosphate 15 mmol/ (Sodium Chloride) 255 mls @ 63.75 mls/hr IV ASDIR PRN PRN Reason: Serum Phos < 0.5 Potassium Chloride/Sodium Chloride (1/2 Ns W/Kcl 20 Meq) 1,000 mls @ 75 mls/hr IV .[id number] [facility] Last Admin: 07/03/17 11:19 Dose: 1,000 mls Loperamide HCl (Imodium) 2 mg PO PRN PRN PRN Reason: Diarrhea/Loose Stools Last Admin: 06/29/17 09:47 Dose: 2 mg Lorazepam (Ativan) 2 mg SLOW IVP Q15MIN PRN PRN Reason: Anxiety/Agitation Last Admin: 07/03/17 13:56 Dose: 2 mg Magnesium Oxide (Magnesium Oxide) 400 mg PO BIDPRN PRN PRN Reason: FOR SERUM MAG 1.4 - 2.0 Magnesium Oxide (Magnesium Oxide) 800 mg PO PRN PRN PRN Reason: FOR SERUM MAG < 1.4 Miscellaneous Medication (Phos-Nak) 1 pkt PO TIDPRN PRN PRN Reason: FOR PHOS LEVEL 1.0 - 1.8 Miscellaneous Medication (Phos-Nak) 2 pkt PO TIDPRN PRN PRN Reason: FOR PHOS LEVEL 0.5 - 1.0 Morphine Sulfate (Morphine) 2 mg SLOW IVP Q2H PRN PRN Reason: Pain Last Admin: 07/03/17 12:22 Dose: 2 mg Ccu Electrolyte (Replacement Protocol) 0 each FS PRN PRN PRN Reason: FOR ELECTROLYTE REPLACEMENT Potassium Chloride (K-Dur) 40 meq PO ASDIR PRN PRN Reason: FOR SERUM K+ 2.5 - 3.5 Potassium Chloride (Klor-Con) 40 meq PER TUBE ASDIR PRN PRN Reason: FOR SERUM K+ 2.5-3.5 Quetiapine Fumarate (Seroquel) 50 mg PO HS [facility] Last Admin: 07/02/17 21:23 Dose: 50 mg
[2017-07-03] MEDS: Famotidine/PF 20 mg/2ml Vial SLOW IVP SCH (21:54)
[2017-07-04] MEDS: Clindamycin/D5W 600 MG in Premix Bag 1 BAG IVPB SCH ×5 (00:09→23:59)
[2017-07-04] MEDS: Morphine 4 MG/ML VIAL SLOW IVP PRN ×2 (02:04→08:22)
[2017-07-04] MEDS: Lorazepam 2 MG/ML VIAL SLOW IVP PRN ×2 (02:05→08:22)
[2017-07-04 04:33] LABS: Anion Gap 11 mmol/L (10-20); BUN (Urea Nitrogen) 45 mg/dL (8.4-25.7); Band 13 % (5-11); Calc. Creatinine Clearance 82 mL/min (70-130); Calcium 7.5 mg/dL (7.8-10.44); Carbon Dioxide 22 mmol/L (23-31); Chloride 119 mmol/L (98-107); Eosinophils 3 % (0-10); Estimated GFR-MDRD 55; Glucose 77 mg/dL (80-115); Hemoglobin 11.1 g/dL (14.0-18.0); Lymphocytes 23 % (21-51); MDiff Complete? YES; Mean Corpuscular HGB CONC 33.7 g/dL (32.0-36.0); Mean Corpuscular Hemoglobin 31.7 pg (27.0-31.0); Mean Platelet Volume 8.2 fL (7.4-10.4); Metamyelocyte 4 % (0-0); Monocytes 6 % (0-10); Myelocyte 2 % (0-0); Neutrophil 49 % (42-75); PLT Morphology Comment Appears Adequate; Platelet Count 140 thou/uL (130-400); Potassium 3.7 mmol/L (3.5-5.1); RBC Distribution Width 13.2 % (11.5-14.5); Red Blood Cell (RBC) Count 3.48 mill/uL (4.70-6.10); Sodium 148 mmol/L (136-145); White Blood Cell (WBC) Count 11.5 thou/uL (4.8-10.8)
[2017-07-04] MEDS: Haloperidol Lactate 5 MG/ML VIAL IM PRN (08:23)
[2017-07-04] MEDS: Heparin 5,000 UNITS/ML VIAL SC SCH ×3 (08:27→20:28)
[2017-07-04] MEDS: Famotidine/PF 20 mg/2ml Vial SLOW IVP SCH ×2 (08:28→21:22)
--- NOTE | 2017-07-04 10:09 | PRG ---
DATE OF SERVICE: 07/04/2017 SUBJECTIVE: Patient provided premedication for pain control for wound VAC change. Septic parameters have improved. OBJECTIVE: VITAL SIGNS: Stable. Urine output 2330. ABDOMEN: Soft, nontender, nondistended. Wound care team at bedside. wound VAC was removed. The wound has significant improvement. There is no gross evidence of recurrent devitalized edges, which demonstrated necrosis, debrided on Tuesday. There is some fibrinous exudate, the changes in the lateral curry of the scrotum, which I debrided at bedside again today. There is no foul smelling discharge, loculated recurrent abscess. The tunica vaginalis is intact. The reactive cellulitic changes at the pubic symphysis have significantly decreased, size of the demarcation has improved. There is no evidence of perineal fluctuance. wound VAC was replaced. He tolerated the procedure uneventfully. IMPRESSION/PLAN: Mr. Avery is a 62-year-old male, who presented with Odilon' s gangrene of the scrotum status post wide debridement by Dr. Putnam. Wound VAC change today, improvement of wound is noted. Dr. Putnam will resume his care tomorrow. [facility]
[2017-07-04] MEDS ORDERED: Potassium Chloride 40 MEQ in Sodium Chloride 0.9% 250 ML 250 ML IVPB SCH (10:30)
[2017-07-04] MEDS: Dextrose 5% in Water 1,000 ML IV SCH (10:53)
[2017-07-04] MEDS: Potassium Chloride 40 MEQ in Premix Bag 1 BAG IVPB PRN ×2 (10:53→10:54)
--- NOTE | 2017-07-04 11:11 | PRG ---
DATE OF SERVICE: 07/04/2017 SERVICE: Pulmonary Medicine. INTERVAL HISTORY: The patient was doing fine yesterday. He is awake. He is alert. He is oriented x1 but otherwise, still a little bit confused. This morning, he had a wound VAC changed. Prior to t hat, he was given pain medicine and anxiolytic. At this point, he is once again encephalopathic. He has developed some central sleep apnea is associated with this, though he is breathing comfortably. He is somnolent. He wakes up easily and follows some simple commands but without stimulation, he go es back to sleep within 4 or 5 seconds. PHYSICAL EXAMINATION: VITAL SIGNS: Afebrile, pulse 82, respirations 15, saturation 98% on room air. GENERAL: The patient is somnolent. HEENT: Normocephalic, atraumatic. Sclerae are white, conjunctivae pink. Oral and nasal mucosa is m oist and without lesions. LUNGS: Clear to auscultation bilaterally without wheezing, rhonchi or crackles. HEART: Normal rate, regular. ABDOMEN: Soft, nontender, nondistended. Bowel sounds are positive. MUSCULOSKELETAL: No cyanosis or clubbing. There is no pitting in the bilateral lower extremities. NEUROLOGIC: Grossly nonfocal. LABORATORY DATA: WBC 11.5, hemoglobin 11.1, platelets 140,000 and improving. Band count has improve d to 13%. Creatinine 1.32 and down trending, BUN 45. Basic metabolic profile is otherwise unremarka ble. Sodium is going up to 140. Multiple cultures are growing Streptococcus pyogenes. Respiratory culture was previously growing Haemophilus influenza. ASSESSMENT: 1. Septic shock, resolved. 2. Odilon's gangrene, status post debridement of the scrotal tissue. 3. Metabolic encephalopathy. 4. Diarrhea. 5. Acute kidney injury. 6. Community-acquired pneumonia. 7. Obstructive sleep apnea, severe. DISCUSSION AND PLAN: The patient was doing fairly well but when he got these medications, he develop ed a central sleep apnea pattern. He is going to remain in the ICU for an additional 24 hours or unt il this encephalopathy once again clears. We will introduce more free water today to see if we can h elp out with his sodium. This may help his mentation slightly. We will remove the restraints once h e can tolerate them coming off without fear pulling on lines and tubes that are required presently.
--- NOTE | 2017-07-04 17:07 | PDOC.PN ---
- Subjective Encounter Start Date: 07/04/17 Encounter Start Time: 10:00 Pt seen for followup re: acute delirium. Continues to have on and off episodes of agitation. Nonverbal, unable to complete ROS. - Objective MAR Reviewed: Yes Vital Signs & Weight: Vital Signs (12 hours) Temp Pulse Resp Pulse Ox 07/04/17 16:00 98.9 F 07/04/17 12:00 98.0 F 07/04/17 08:00 97.7 F 98 25 H 94 L 07/04/17 07:45 97.7 F Weight Admit Weight 223 lb Weight 221 lb 9.033 oz Most Recent Monitor Data Heart Rate from ECG 82 NIBP 156/79 NIBP BP-Mean 89 Respiration from ECG 24 SpO2 91 I&O: 07/03/17 07/04/17 07/05/17 06:59 06:59 06:59 Intake Total 2634 2186 Output Total 2390 2330 1690 Balance 244 -144 -1690 Result Diagrams: 07/04/17 04:05 07/04/17 04:05 EKG Reviewed by me: Yes (Tele: NSR) Phys Exam - Physical Examination Obese HEENT: moist MMs Neck: supple Respiratory: clear to auscultation bilateral Cardiovascular: RRR Gastrointestinal: soft wound vac Neurological: moves all 4 limbs Deviation from normal: Unable to assess Skin: no rash Dx/Plan (1) Acute delirium Code(s): R41.0 - DISORIENTATION, UNSPECIFIED Status: Acute Comment: Likely multifactorial. No significant change since yesterday. Still in restraints. (2) Odilon gangrene Code(s): N49.3 - ODILON GANGRENE Status: Acute Comment: s/p surgery, continue IV antibiotics as below. Dressing changed today (3) DAMIAN (acute kidney injury) Code(s): N17.9 - ACUTE KIDNEY FAILURE, UNSPECIFIED Status: Acute Comment: Creatinine improving, 1.32 today, continue IV hydration (4) Pancytopenia Code(s): D61.818 - OTHER PANCYTOPENIA Status: Acute Comment: likely due to sepsis, platelet count normal today, continue to monitor blood counts (5) Hypokalemia Code(s): E87.6 - HYPOKALEMIA Status: Resolved - Plan * . Review of Systems - Medications/Allergies Allergies/Adverse Reactions: Allergies Allergy/AdvReac Type Severity Reaction Status Date / Time No Known Allergies Allergy Unverified 06/28/17 09:08 Medications: Current Medications Famotidine (Pepcid) 20 mg SLOW IVP BID [facility] Last Admin: 07/04/17 08:28 Dose: Not Given Heparin Sodium (Porcine) (Heparin) 5,000 units SC TID [facility] Last Admin: 07/04/17 08:27 Dose: 5,000 units Ceftriaxone Sodium 2 gm/ (Sodium Chloride) 100 mls @ 200 mls/hr IVPB 1600 [facility] Last Admin: 07/03/17 15:29 Dose: 100 mls Clindamycin Phosphate/Dextrose (600 mg/ Device) 50 mls @ 100 mls/hr IVPB Q6HR [facility] Last Admin: 07/04/17 12:15 Dose: 50 mls Potassium Chloride 40 meq/ (Sodium Chloride) 270 mls @ 135 mls/hr IVPB ASDIR PRN PRN Reason: FOR SERUM K+ 2.5 - 3.5 Potassium Chloride 40 meq/ (Device) 100 mls @ 50 mls/hr IVPB ASDIR PRN PRN Reason: FOR SERUM K+ 2.5 - 3.5 Last Admin: 07/04/17 10:54 Dose: 100 mls Magnesium Sulfate 1 gm/ Sodium (Chloride) 102 mls @ 102 mls/hr IV PRN PRN PRN Reason: MAG LEVEL 1.4 - 2.0 Magnesium Sulfate 2 gm/ Device 100 mls @ 100 mls/hr IVPB ASDIR PRN PRN Reason: MAGNESIUM < 1.4 Potassium Phosphate 9 mmol/ (Sodium Chloride) 103 mls @ 25.75 mls/hr IVPB ASDIR PRN PRN Reason: Phosphate 1.0-1.8 Potassium Phosphate 12 mmol/ (Sodium Chloride) 254 mls @ 63.5 mls/hr IV ASDIR PRN PRN Reason: Serum phosphate 0.5-0.9 Potassium Phosphate 15 mmol/ (Sodium Chloride) 255 mls @ 63.75 mls/hr IV ASDIR PRN PRN Reason: Serum Phos < 0.5 Dextrose/Water (D5w) 1,000 mls @ 100 mls/hr IV .Q10H [facility] Last Admin: 07/04/17 10:53 Dose: 1,000 mls Loperamide HCl (Imodium) 2 mg PO PRN PRN PRN Reason: Diarrhea/Loose Stools Last Admin: 06/29/17 09:47 Dose: 2 mg Magnesium Oxide (Magnesium Oxide) 400 mg PO BIDPRN PRN PRN Reason: FOR SERUM MAG 1.4 - 2.0 Magnesium Oxide (Magnesium Oxide) 800 mg PO PRN PRN PRN Reason: FOR SERUM MAG < 1.4 Miscellaneous Medication (Phos-Nak) 1 pkt PO TIDPRN PRN PRN Reason: FOR PHOS LEVEL 1.0 - 1.8 Miscellaneous Medication (Phos-Nak) 2 pkt PO TIDPRN PRN PRN Reason: FOR PHOS LEVEL 0.5 - 1.0 Morphine Sulfate (Morphine) 2 mg SLOW IVP Q2H PRN PRN Reason: Pain Last Admin: 07/04/17 08:22 Dose: 2 mg Ccu Electrolyte (Replacement Protocol) 0 each FS PRN PRN PRN Reason: FOR ELECTROLYTE REPLACEMENT Potassium Chloride (K-Dur) 40 meq PO ASDIR PRN PRN Reason: FOR SERUM K+ 2.5 - 3.5 Potassium Chloride (Klor-Con) 40 meq PER TUBE ASDIR PRN PRN Reason: FOR SERUM K+ 2.5-3.5 Quetiapine Fumarate (Seroquel) 50 mg PO HS [facility] Last Admin: 07/03/17 21:41 Dose: 50 mg
[2017-07-04] MEDS: cefTRIAXone\\ROCEPHIN 2 GM in Sodium Chloride 0.9% 100 ML IVPB SCH (17:34)
[2017-07-05] MEDS: Morphine 4 MG/ML VIAL SLOW IVP PRN (01:36)
[2017-07-05 05:41] LABS: Band 11 % (5-11); Eosinophils 3 % (0-10); Lymphocytes 19 % (21-51); MDiff Complete? YES; Mean Corpuscular HGB CONC 34.1 g/dL (32.0-36.0); Mean Corpuscular Hemoglobin 31.8 pg (27.0-31.0); Mean Corpuscular Volume 93.4 fl (80.0-94.0); Mean Platelet Volume 8.9 fL (7.4-10.4); Monocytes 3 % (0-10); Neutrophil 64 % (42-75); PLT Morphology Comment Appears Adequate; Platelet Count 173 thou/uL (130-400); RBC Distribution Width 13.3 % (11.5-14.5); Red Blood Cell (RBC) Count 3.14 mill/uL (4.70-6.10); White Blood Cell (WBC) Count 10.3 thou/uL (4.8-10.8)
[2017-07-05] MEDS: Clindamycin/D5W 600 MG in Premix Bag 1 BAG IVPB SCH ×4 (06:29→23:10)
[2017-07-05 06:54] LABS: Anion Gap 11 mmol/L (10-20); BUN (Urea Nitrogen) 35 mg/dL (8.4-25.7); Calc. Creatinine Clearance 89 mL/min (70-130); Calcium 7.6 mg/dL (7.8-10.44); Carbon Dioxide 25 mmol/L (23-31); Chloride 117 mmol/L (98-107); Estimated GFR-MDRD 58; Glucose 150 mg/dL (80-115); Potassium 3.5 mmol/L (3.5-5.1); Sodium 149 mmol/L (136-145)
[2017-07-05] MEDS ORDERED: Potassium Chloride 40 MEQ in Sodium Chloride 0.9% 250 ML 250 ML IVPB SCH (09:15)
[2017-07-05] MEDS: Dextrose 5% in Water 1,000 ML IV SCH ×5 (09:46→23:10)
[2017-07-05] MEDS: Famotidine/PF 20 mg/2ml Vial SLOW IVP SCH (09:46)
[2017-07-05] MEDS: Heparin 5,000 UNITS/ML VIAL SC SCH ×3 (09:46→21:16)
[2017-07-05] MEDS: Famotidine 20 MG TAB PO SCH ×2 (09:47→21:15)
--- NOTE | 2017-07-05 09:59 | PRG ---
DATE OF SERVICE: 07/05/2017 SERVICE: Pulmonary Medicine INTERVAL HISTORY: The patient is doing outstanding from a respiratory standpoint. He denies any melanie st pain, nausea, vomiting, fevers or chills. He is much more alert and awake this morning. There we re no overnight events. He got 1 dose of morphine in the middle of the night. PHYSICAL EXAMINATION: VITAL SIGNS: Afebrile, pulse 68, blood pressure 179/86, respirations 17, saturation 100% on 2 liters nasal cannula. GENERAL: The patient is awake, alert, in no apparent distress. LUNGS: Excellent air entry. There is no prolonged expiratory phase, wheezing, rhonchi, or crackles present. HEART: Normal rate, regular. ABDOMEN: Soft, nontender, nondistended. Bowel sounds are positive. MUSCULOSKELETAL: No cyanosis or clubbing. There is minimal pitting in the bilateral lower extremiti es. NEUROLOGIC: Grossly nonfocal. LABORATORY: WBC 10.3, hemoglobin 10.0, platelets 173,000 and rebounding beautifully. Band count con tinues to fall at 11%. Sodium is gently up trending to 149, chloride 117 and down trending. Potassi um 3.5, creatinine 1.26. ASSESSMENT: 1. Acute hypoxic respiratory failure, resolving. 2. Septic shock, resolved. 3. Odilon's gangrene, status post debridement of scrotal tissue. 4. Metabolic encephalopathy, improving. 5. Hypernatremia. 6. Diarrhea, ongoing. 7. Acute kidney injury, resolved. 8. Community-acquired pneumonia. 9. Obstructive sleep apnea, severe. DISCUSSION AND PLAN: We will replace the potassium again. I will increase his free water 125 mL of D5 water per hour for the next 24 hours. We will likely get to back off on this tomorrow. His menta tion is improving a little bit. We will see if we can minimize our restraints. If he behaves, we wi ll likely try to get him up out of bed and into a chair. Rectal tube will need to be removed tomorro w to give his rectum some rest. He will need to remain in the ICU for the time being.
[2017-07-05] MEDS: cefTRIAXone\\ROCEPHIN 2 GM in Sodium Chloride 0.9% 100 ML IVPB SCH (15:00)
--- NOTE | 2017-07-05 17:48 | PDOC.PN ---
- Subjective Encounter Start Date: 07/05/17 Encounter Start Time: 10:20 Pt seen for followup re: delirium. More alert today, answering questions. Denies chest pain, shortness of breath, fevers or chills. No nausea or vomiting. - Objective MAR Reviewed: Yes Vital Signs & Weight: Vital Signs (12 hours) Temp Pulse Resp 07/05/17 15:00 98 F 07/05/17 11:00 97.9 F 07/05/17 08:00 98.4 F 68 17 Weight Admit Weight 223 lb Weight 231 lb 11.293 oz Most Recent Monitor Data Heart Rate from ECG 65 NIBP 152/90 NIBP BP-Mean 101 Respiration from ECG 15 SpO2 99 I&O: 07/04/17 07/05/17 07/06/17 06:59 06:59 06:59 Intake Total 2186 2309 2120 Output Total 2330 3150 850 Balance -144 -841 1270 Result Diagrams: 07/05/17 05:14 07/05/17 06:34 EKG Reviewed by me: Yes (Tele: NSR) Phys Exam - Physical Examination Obese HEENT: sclera anicteric Dry mucosae Neck: supple Respiratory: clear to auscultation bilateral Cardiovascular: RRR Gastrointestinal: soft, non-tender wound vac Neurological: moves all 4 limbs Psychiatric: normal affect Deviation from normal: Orienetd to person and place only Dx/Plan (1) Acute delirium Code(s): R41.0 - DISORIENTATION, UNSPECIFIED Status: Acute Comment: Improving, etiology unclear (2) Odilon gangrene Code(s): N49.3 - ODILON GANGRENE Status: Acute Comment: s/p surgery, continue IV antibiotics as below. Dressing changed yesterday (3) Hypernatremia Code(s): E87.0 - HYPEROSMOLALITY AND HYPERNATREMIA Status: Acute Comment: continue D5W, recheck sodium level (4) DAMIAN (acute kidney injury) Code(s): N17.9 - ACUTE KIDNEY FAILURE, UNSPECIFIED Status: Resolved (5) Hypokalemia Code(s): E87.6 - HYPOKALEMIA Status: Resolved (6) Pancytopenia Code(s): D61.818 - OTHER PANCYTOPENIA Status: Resolved Comment: likely due to sepsis - Plan * . Review of Systems - Medications/Allergies Allergies/Adverse Reactions: Allergies Allergy/AdvReac Type Severity Reaction Status Date / Time No Known Allergies Allergy Unverified 06/28/17 09:08 Medications: Current Medications Famotidine (Pepcid) 20 mg PO BID [facility] Last Admin: 07/05/17 09:47 Dose: Not Given Heparin Sodium (Porcine) (Heparin) 5,000 units SC TID [facility] Last Admin: 07/05/17 15:00 Dose: 5,000 units Ceftriaxone Sodium 2 gm/ (Sodium Chloride) 100 mls @ 200 mls/hr IVPB 1600 [facility] Last Admin: 07/05/17 15:00 Dose: 100 mls Clindamycin Phosphate/Dextrose (600 mg/ Device) 50 mls @ 100 mls/hr IVPB Q6HR [facility] Last Admin: 07/05/17 17:07 Dose: 50 mls Potassium Chloride 40 meq/ (Sodium Chloride) 270 mls @ 135 mls/hr IVPB ASDIR PRN PRN Reason: FOR SERUM K+ 2.5 - 3.5 Potassium Chloride 40 meq/ (Device) 100 mls @ 50 mls/hr IVPB ASDIR PRN PRN Reason: FOR SERUM K+ 2.5 - 3.5 Last Admin: 07/04/17 10:54 Dose: 100 mls Magnesium Sulfate 1 gm/ Sodium (Chloride) 102 mls @ 102 mls/hr IV PRN PRN PRN Reason: MAG LEVEL 1.4 - 2.0 Magnesium Sulfate 2 gm/ Device 100 mls @ 100 mls/hr IVPB ASDIR PRN PRN Reason: MAGNESIUM < 1.4 Potassium Phosphate 9 mmol/ (Sodium Chloride) 103 mls @ 25.75 mls/hr IVPB ASDIR PRN PRN Reason: Phosphate 1.0-1.8 Potassium Phosphate 12 mmol/ (Sodium Chloride) 254 mls @ 63.5 mls/hr IV ASDIR PRN PRN Reason: Serum phosphate 0.5-0.9 Potassium Phosphate 15 mmol/ (Sodium Chloride) 255 mls @ 63.75 mls/hr IV ASDIR PRN PRN Reason: Serum Phos < 0.5 Dextrose/Water (D5w) 1,000 mls @ 125 mls/hr IV .Q8H [facility] Last Admin: 07/05/17 17:07 Dose: Not Given Loperamide HCl (Imodium) 2 mg PO PRN PRN PRN Reason: Diarrhea/Loose Stools Last Admin: 06/29/17 09:47 Dose: 2 mg Magnesium Oxide (Magnesium Oxide) 400 mg PO BIDPRN PRN PRN Reason: FOR SERUM MAG 1.4 - 2.0 Magnesium Oxide (Magnesium Oxide) 800 mg PO PRN PRN PRN Reason: FOR SERUM MAG < 1.4 Miscellaneous Medication (Phos-Nak) 1 pkt PO TIDPRN PRN PRN Reason: FOR PHOS LEVEL 1.0 - 1.8 Miscellaneous Medication (Phos-Nak) 2 pkt PO TIDPRN PRN PRN Reason: FOR PHOS LEVEL 0.5 - 1.0 Morphine Sulfate (Morphine) 2 mg SLOW IVP Q2H PRN PRN Reason: Pain Last Admin: 07/05/17 01:36 Dose: 2 mg Ccu Electrolyte (Replacement Protocol) 0 each FS PRN PRN PRN Reason: FOR ELECTROLYTE REPLACEMENT Potassium Chloride (K-Dur) 40 meq PO ASDIR PRN PRN Reason: FOR SERUM K+ 2.5 - 3.5 Potassium Chloride (Klor-Con) 40 meq PER TUBE ASDIR PRN PRN Reason: FOR SERUM K+ 2.5-3.5 Last Admin: 07/05/17 09:47 Dose: 40 meq Quetiapine Fumarate (Seroquel) 50 mg PO HS [facility] Last Admin: 07/04/17 20:28 Dose: 50 mg
[2017-07-05] MEDS ORDERED: Famotidine 20 MG TAB PO SCH (21:00)
--- NOTE | 2017-07-06 03:08 | CON ---
DATE OF CRITICAL CARE NOTE: 07/05/2017 INITIAL REASON FOR CONSULTATION: 1. 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 2. Loculated hydrocele. 3. Scrotal cellulitis. 4. Sepsis presentation. INTERVAL EVENTS: The patient during my absence has been under the care of Dr. Mulu Perdue and has had a wound VAC placed. The patient has been doing well with that treatment; however, has had on going episodes of delirium. The exact cause of his delirium is unclear since he appears to have infe ction with relatively benign organisms. PHYSICAL EXAMINATION: VITAL SIGNS: The patient is currently afebrile with temperature of 98 degrees F and has been so for more than 24 hours. Blood pressure is 174/73, pulse rate has been in the 40-50 by monitor, respirato ry rate is 12, and O2 saturations 100%. GENERAL: The patient is awake, alert, and communicates. He does admit to some delirium and disorien tation over the last 24 hours, does report that he is not uncomfortable in the arm restraints but wis hes that he was able to move his arms freely. HEAD, EYES, EARS, NOSE AND THROAT: Extraocular movements are intact. Sclerae are anicteric. Oropha rynx is clear. NECK: Supple. LUNGS: Clear to auscultation bilaterally. CARDIAC: Regular, but bradycardic rate. ABDOMEN: Soft and nontender. There is no extension of the patient's Odilon's gangrene onto the up per abdomen or lower abdomen. GENITOURINARY: A wound VAC device is in place. The midline scrotal raphae incision is shrunken in a ccordance with the current vacuum application. Phallus is without lesion. Indwelling Mejia catheter is in place. Does not appear to be extension of a gangrenous process posteriorly other than what wa s previously noted. EXTREMITIES: Appear within normal limits. No evidence of necrosis of any digits or the patient's to es. The patient's wound VAC drainage and has been relatively minimal in the range of 300 to 400 mL over t he last 24 hours. Urine output has been about 900 mL over the last 24 hours and was in the 2200 mL r cecelia yesterday. He has a net positive fluid balance of about 1100 mL from today. LABORATORY STUDIES: The patient's white count has continued to fall from 18.4 on 07/01/2017, now andree n to 10,300. The number of manual bands observed has fallen into normal range now to 11%, down from 65%. Microbiology cultures, bacterial cultures from this patient's scrotum abscess and the scrotum t issue grew Streptococcus pyogenes, which is essentially in typical evaluation sensitive to penicillin , cephalosporins or vancomycin. The patient's respiratory culture did grow Haemophilus influenza type 1 on 06/28/2017. A urine culture from 06/28/2017 grew no organisms at 36 hours. ASSESSMENT AND PLAN: 1. Midline scrotal raphae necrosis, the patient's blood supply in midline scrotal raphae is relative ly tenuous as this is the most distant portion of the skin from the circulatory system and is prone t o necrosis during acute circulatory insults. The organisms isolated from the patient's midline rapha e and scrotum are relatively benign organisms, but appeared to possibly be related to the patient's F ournier's type presentation. 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 Both these Streptococcus pyogenes and Haemophilus influenza may present with encapsulation. This may suggest a basic immune defect associated with the patient's previous immunomodulation therap y. 2. Infectious disease. The patient currently covered with appropriate antibiotic coverage and jon nuing to improve. 3. Scrotal raphae wound, currently on wound VAC with generalized improvement. Today, no evidence of further necrosis.
[2017-07-06 05:15] LABS: Anion Gap 8 mmol/L (10-20); BUN (Urea Nitrogen) 25 mg/dL (8.4-25.7); Calc. Creatinine Clearance 101 mL/min (70-130); Calcium 7.3 mg/dL (7.8-10.44); Carbon Dioxide 26 mmol/L (23-31); Chloride 112 mmol/L (98-107); Estimated GFR-MDRD 67; Glucose 96 mg/dL (80-115); Magnesium 1.5 mg/dL (1.6-2.6); Potassium 3.4 mmol/L (3.5-5.1); Sodium 143 mmol/L (136-145)
[2017-07-06] MEDS: Clindamycin/D5W 600 MG in Premix Bag 1 BAG IVPB SCH ×4 (06:27→22:57)
[2017-07-06] MEDS: Magnesium Oxide 400 MG TAB PO PRN ×2 (06:28→08:25)
[2017-07-06] MEDS: Dextrose 5% in Water 1,000 ML IV SCH ×3 (06:31→20:28)
[2017-07-06] MEDS: Heparin 5,000 UNITS/ML VIAL SC SCH ×3 (08:24→20:29)
[2017-07-06] MEDS: Famotidine 20 MG TAB PO SCH (08:25)
[2017-07-06] MEDS ORDERED: Dextrose 5% in Water 1,000 ML IV SCH (08:36)
[2017-07-06] MEDS ORDERED: Magnesium Sulfate 4 GM in Sodium Chloride 0.9% 250 ML 250 ML IVPB SCH (09:00)
[2017-07-06] MEDS: Morphine 4 MG/ML VIAL SLOW IVP PRN (09:36)
--- NOTE | 2017-07-06 09:55 | PRG ---
DATE OF SERVICE: 07/06/2017 SERVICE: Pulmonary Medicine. INTERVAL HISTORY: The patient is doing fine from a cardiovascular and respiratory standpoint. He is breathing comfortably. Mentation is much improved. He is tolerating p.o. and cleared 80% of his pl ate yesterday. PHYSICAL EXAMINATION: VITAL SIGNS: Afebrile, pulse 78, blood pressure 143/83, respirations 10, saturation 100% on room air . GENERAL: The patient is awake, alert, in no apparent distress. LUNGS: Excellent air entry with no prolonged expiratory phase, wheezing, rhonchi, or crackles presen t. HEART: Normal rate and regular. ABDOMEN: Soft, nontender, and nondistended. Bowel sounds are positive. MUSCULOSKELETAL: No cyanosis or clubbing. No pitting in the bilateral lower extremities. NEUROLOGIC: Grossly nonfocal. LABORATORY DATA: Potassium 3.4, magnesium 1.5. Otherwise, basic metabolic profile is essentially un remarkable. Sodium is improved dramatically to 143. ASSESSMENT: 1. Acute hypoxic respiratory failure, resolved. 2. Septic shock, resolved. 3. Odilon's gangrene, status post debridement of scrotal tissue. 4. Metabolic encephalopathy, resolved. 5. Hypernatremia, resolved. 6. Diarrhea, improving. 7. Acute kidney injury, resolved. 8. Community-acquired pneumonia. 9. Obstructive sleep apnea, severe. DISCUSSION AND PLAN: I will drop the patient's IV fluid rate to 50 an hour. This will likely be dis continued tomorrow. He can be transitioned to the floor at this time. We will get the rectal tube o ut. He will work with physical therapy in order to regain his lost strength. We will try to get him to a chair 3 times daily. His magnesium and potassium will once again be replaced. I will recheck levels tomorrow morning. He will be transitioned out of the ICU to the surgical unit.
--- NOTE | 2017-07-06 15:49 | PDOC.PN ---
- Subjective Encounter Start Date: 07/06/17 Encounter Start Time: 11:20 Pt seen for followup re: acute delirium. More alert today. Denies chest pain or shortness of breath. - Objective MAR Reviewed: Yes Vital Signs & Weight: Vital Signs (12 hours) Temp Pulse Resp BP Pulse Ox 07/06/17 11:59 98.0 F 63 18 96 07/06/17 11:30 98.0 F 63 18 159/76 H 96 07/06/17 07:51 98 F 81 14 Weight Admit Weight 223 lb Weight 226 lb 10.163 oz Most Recent Monitor Data Heart Rate from ECG 78 NIBP 143/83 NIBP BP-Mean 97 Respiration from ECG 10 SpO2 100 I&O: 07/05/17 07/06/17 07/07/17 06:59 06:59 06:59 Intake Total 2309 4102 933 Output Total 3150 2120 450 Balance -841 1982 483 Result Diagrams: 07/05/17 05:14 07/07/17 04:54 Additional Labs: Labs reviewed by me EKG Reviewed by me: Yes (Tele: NSR) Phys Exam - Physical Examination Constitutional: NAD HEENT: moist MMs Neck: supple Respiratory: clear to auscultation bilateral Cardiovascular: RRR Gastrointestinal: soft Musculoskeletal: no edema Neurological: non-focal Psychiatric: normal affect Deviation from normal: Oriented to person and place Dx/Plan (1) Acute delirium Code(s): R41.0 - DISORIENTATION, UNSPECIFIED Status: Acute Comment: Improving, etiology unclear (2) Odilon gangrene Code(s): N49.3 - ODILON GANGRENE Status: Acute Comment: s/p surgery, continue antibiotics and wound vac (3) Hypernatremia Code(s): E87.0 - HYPEROSMOLALITY AND HYPERNATREMIA Status: Resolved (4) DAMIAN (acute kidney injury) Code(s): N17.9 - ACUTE KIDNEY FAILURE, UNSPECIFIED Status: Resolved (5) Hypokalemia Code(s): E87.6 - HYPOKALEMIA Status: Resolved (6) Pancytopenia Code(s): D61.818 - OTHER PANCYTOPENIA Status: Resolved Comment: likely due to sepsis - Plan * . Review of Systems - Review of Systems Respiratory: negative: Cough, Shortness of Breath, SOB with Excertion, Pleuritic Pain, Wheezing Cardiovascular: negative: chest pain, palpitations, orthopnea, paroxysmal nocturnal dyspnea, edema, light headedness - Medications/Allergies Allergies/Adverse Reactions: Allergies Allergy/AdvReac Type Severity Reaction Status Date / Time No Known Allergies Allergy Unverified 06/28/17 09:08 Medications: Current Medications Cephalexin (Keflex) 500 mg PO TID [facility] Last Admin: 07/08/17 20:36 Dose: 500 mg Heparin Sodium (Porcine) (Heparin) 5,000 units SC TID [facility] Last Admin: 07/08/17 20:36 Dose: 5,000 units Lidocaine HCl (Xylocaine 4% Topical Rhoda) 0 ml TOP .3XWEEKLY PRN PRN Reason: WITH WOUND VAC CHANGES Last Admin: 07/08/17 11:34 Dose: 1 applic Loperamide HCl (Imodium) 2 mg PO PRN PRN PRN Reason: Diarrhea/Loose Stools Last Admin: 06/29/17 09:47 Dose: 2 mg Morphine Sulfate (Morphine) 2 mg SLOW IVP Q2H PRN PRN Reason: Pain Last Admin: 07/08/17 11:33 Dose: 2 mg
[2017-07-06] MEDS: cefTRIAXone\\ROCEPHIN 2 GM in Sodium Chloride 0.9% 100 ML IVPB SCH (15:51)
--- NOTE | 2017-07-06 15:55 | PDOC.PN ---
- Subjective Encounter Start Date: 07/06/17 Encounter Start Time: 11:20 Pt seen for followup re: hypokalemia. Awake, alert, denies any complaints. - Objective MAR Reviewed: Yes Vital Signs & Weight: Vital Signs (12 hours) Temp Pulse Resp BP Pulse Ox 07/06/17 15:49 97.9 F 68 16 197/83 H 96 07/06/17 11:59 98.0 F 63 18 96 07/06/17 11:30 98.0 F 63 18 159/76 H 96 07/06/17 07:51 98 F 81 14 Weight Admit Weight 223 lb Weight 226 lb 10.163 oz Most Recent Monitor Data Heart Rate from ECG 78 NIBP 143/83 NIBP BP-Mean 97 Respiration from ECG 10 SpO2 100 I&O: 07/05/17 07/06/17 07/07/17 06:59 06:59 06:59 Intake Total 2309 4102 933 Output Total 3150 2120 450 Balance -841 1982 483 Result Diagrams: 07/05/17 05:14 07/06/17 04:34 Additional Labs: Labs reviewed by me Phys Exam - Physical Examination Constitutional: NAD HEENT: moist MMs Neck: supple Respiratory: clear to auscultation bilateral Cardiovascular: RRR Gastrointestinal: soft Wound vac Neurological: moves all 4 limbs Psychiatric: normal affect, A&O x 3 Dx/Plan (1) Hypokalemia Code(s): E87.6 - HYPOKALEMIA Status: Acute Comment: place potassium and recheck (2) Odilon gangrene Code(s): N49.3 - ODILON GANGRENE Status: Acute Comment: s/p surgery, continue IV antibiotics as below. Dressing changed today (3) DAMIAN (acute kidney injury) Code(s): N17.9 - ACUTE KIDNEY FAILURE, UNSPECIFIED Status: Resolved (4) Pancytopenia Code(s): D61.818 - OTHER PANCYTOPENIA Status: Resolved Comment: likely due to sepsis (5) Acute delirium Code(s): R41.0 - DISORIENTATION, UNSPECIFIED Status: Resolved (6) Hypernatremia Code(s): E87.0 - HYPEROSMOLALITY AND HYPERNATREMIA Status: Resolved - Plan * . Review of Systems - Review of Systems Respiratory: negative: Cough, Shortness of Breath, SOB with Excertion, Pleuritic Pain, Wheezing Cardiovascular: negative: chest pain, palpitations, orthopnea, paroxysmal nocturnal dyspnea, edema, light headedness, other - Medications/Allergies Allergies/Adverse Reactions: Allergies Allergy/AdvReac Type Severity Reaction Status Date / Time No Known Allergies Allergy Unverified 06/28/17 09:08 Medications: Current Medications Heparin Sodium (Porcine) (Heparin) 5,000 units SC TID [facility] Last Admin: 07/06/17 08:24 Dose: 5,000 units Ceftriaxone Sodium 2 gm/ (Sodium Chloride) 100 mls @ 200 mls/hr IVPB 1600 [facility] Last Admin: 07/05/17 15:00 Dose: 100 mls Clindamycin Phosphate/Dextrose (600 mg/ Device) 50 mls @ 100 mls/hr IVPB Q6HR [facility] Last Admin: 07/06/17 12:30 Dose: 50 mls Potassium Chloride 40 meq/ (Sodium Chloride) 270 mls @ 135 mls/hr IVPB ASDIR PRN PRN Reason: FOR SERUM K+ 2.5 - 3.5 Potassium Chloride 40 meq/ (Device) 100 mls @ 50 mls/hr IVPB ASDIR PRN PRN Reason: FOR SERUM K+ 2.5 - 3.5 Last Admin: 07/04/17 10:54 Dose: 100 mls Magnesium Sulfate 1 gm/ Sodium (Chloride) 102 mls @ 102 mls/hr IV PRN PRN PRN Reason: MAG LEVEL 1.4 - 2.0 Magnesium Sulfate 2 gm/ Device 100 mls @ 100 mls/hr IVPB ASDIR PRN PRN Reason: MAGNESIUM < 1.4 Potassium Phosphate 9 mmol/ (Sodium Chloride) 103 mls @ 25.75 mls/hr IVPB ASDIR PRN PRN Reason: Phosphate 1.0-1.8 Potassium Phosphate 12 mmol/ (Sodium Chloride) 254 mls @ 63.5 mls/hr IV ASDIR PRN PRN Reason: Serum phosphate 0.5-0.9 Potassium Phosphate 15 mmol/ (Sodium Chloride) 255 mls @ 63.75 mls/hr IV ASDIR PRN PRN Reason: Serum Phos < 0.5 Dextrose/Water (D5w) 1,000 mls @ 50 mls/hr IV .Q20H [facility] Last Admin: 07/06/17 10:03 Dose: Not Given Loperamide HCl (Imodium) 2 mg PO PRN PRN PRN Reason: Diarrhea/Loose Stools Last Admin: 06/29/17 09:47 Dose: 2 mg Magnesium Oxide (Magnesium Oxide) 400 mg PO BIDPRN PRN PRN Reason: FOR SERUM MAG 1.4 - 2.0 Last Admin: 07/06/17 08:25 Dose: 400 mg Magnesium Oxide (Magnesium Oxide) 800 mg PO PRN PRN PRN Reason: FOR SERUM MAG < 1.4 Miscellaneous Medication (Phos-Nak) 1 pkt PO TIDPRN PRN PRN Reason: FOR PHOS LEVEL 1.0 - 1.8 Miscellaneous Medication (Phos-Nak) 2 pkt PO TIDPRN PRN PRN Reason: FOR PHOS LEVEL 0.5 - 1.0 Morphine Sulfate (Morphine) 2 mg SLOW IVP Q2H PRN PRN Reason: Pain Last Admin: 07/06/17 09:36 Dose: 2 mg Ccu Electrolyte (Replacement Protocol) 0 each FS PRN PRN PRN Reason: FOR ELECTROLYTE REPLACEMENT Potassium Chloride (K-Dur) 40 meq PO ASDIR PRN PRN Reason: FOR SERUM K+ 2.5 - 3.5 Potassium Chloride (Klor-Con) 40 meq PER TUBE ASDIR PRN PRN Reason: FOR SERUM K+ 2.5-3.5 Last Admin: 07/06/17 06:27 Dose: 40 meq Quetiapine Fumarate (Seroquel) 25 mg PO HS [facility]
--- NOTE | 2017-07-07 02:14 | CON ---
DATE OF CONSULTATION: 07/06/2017 CONSULTATION AND PROGRESS NOTE INITIAL REASON FOR CONSULTATION: 1. Scrotal gangrene, Odilon's type, N49.3. 2. Loculated hydrocele. 3. Scrotal cellulitis. 4. Sepsis presentation. INTERVAL EVENTS: The patient has been transferred to the 3-tower floor at this point. He has been d oing well and reports no disorientation over the last 24 hours. The patient has had his wound VAC re placed and is on current suction. The patient reports no significant pain complaints today. PHYSICAL EXAMINATION: VITAL SIGNS: Temperature is 98.1, the patient has been afebrile today; pulse is 61; respirations 18; O2 saturation is 96% on room air; blood pressure is currently 138/76. GENERAL: This is a pleasant, awake, alert, white male in no distress. He reports no disorientation. He is oriented x3 on evaluation. HEAD, EARS, EYES, NOSE, AND THROAT: Extraocular movements are intact. Sclerae are anicteric. Oroph arynx is clear. NECK: Supple. LUNGS: Clear to auscultation bilaterally. CARDIAC: Regular rate and rhythm without murmur, rub, or gallop. ABDOMEN: Soft and nontender. There is no evidence of extension of the patient's previous Odilon's type process onto the abdomen. GENITOURINARY: Phallus is circumcised. Indwelling Mejia catheter is in place and is draining clear urine. A wound VAC device was attached to the patient's scrotum using Tegaderm-type dressing. Overa ll wound width has decreased over time. There is no apparent evidence of necrosis or progression of the process. EXTREMITIES: Appearing within normal limits. LABORATORY DATA: The patient's last CBC was on 07/05/2017, which shows white count of 10,300. There is no evidence of left shift on the evaluation either. Hemoglobin is 10 with a hematocrit of 29.4. Serum chemistry was obtained today, show a potassium of 3.4, chloride is 112, carbon dioxide is 26, sodium 143, and blood urea nitrogen of 25 with creatinine of 1.11. There is overall improvement in t he patient's renal function over time. MICROBIOLOGY: The patient's scrotal tissue culture grew Streptococcus pyogenes as did the scrotum ab scess. The patient's respiratory culture from 06/28/2017 grew Haemophilus influenzae type 1. Blood cultures are negative x5 days x2. ASSESSMENT: 1. Scrotal raphe and midline scrotal Odilon's type process. Has been debrided and necrotic tissue excised. Currently, on wound VAC management, which appears to be working well for him. The patient is on appropriate antibiotic coverage as well. Continued wound care indicated. 2. Infection with encapsulated organisms. The patient is currently on appropriate antibiotic covera ge and continues to improve. Note that both Streptococcus pyogenes and Haemophilus influenzae which were cultured are encapsulated-type organisms and this may point to a spleen-type problem or be secon georgie to Enbrel use. Over 35 minutes of consultation and assessment time spent on evaluation and assessment of this patien t today.
[2017-07-07] MEDS: Clindamycin/D5W 600 MG in Premix Bag 1 BAG IVPB SCH ×3 (04:55→17:54)
[2017-07-07 06:06] LABS: Anion Gap 9 mmol/L (10-20); BUN (Urea Nitrogen) 19 mg/dL (8.4-25.7); Calc. Creatinine Clearance 96 mL/min (70-130); Calcium 7.2 mg/dL (7.8-10.44); Carbon Dioxide 26 mmol/L (23-31); Chloride 108 mmol/L (98-107); Estimated GFR-MDRD 65; Glucose 87 mg/dL (80-115); Magnesium 1.9 mg/dL (1.6-2.6); Phosphorus 2.7 mg/dL (2.3-4.7); Potassium 3.8 mmol/L (3.5-5.1); Sodium 139 mmol/L (136-145)
[2017-07-07] MEDS: Heparin 5,000 UNITS/ML VIAL SC SCH ×3 (08:29→20:33)
--- NOTE | 2017-07-07 15:55 | PDOC.PN ---
- Subjective Encounter Start Date: 07/07/17 Encounter Start Time: 08:00 Pt seen for followup re: Odilon gangrene. Denies chest pain, shortness of breath, fevers or chills. No nausea or vomiting. - Objective MAR Reviewed: Yes Vital Signs & Weight: Vital Signs (12 hours) Temp Pulse Resp BP BP Pulse Ox 07/07/17 11:34 97.8 F 69 18 146/83 H 97 07/07/17 08:29 97.8 F 57 L 16 98 07/07/17 07:33 97.8 F 57 L 16 154/85 H 98 Weight Admit Weight 223 lb Weight 226 lb Most Recent Monitor Data Heart Rate from ECG 78 NIBP 143/83 NIBP BP-Mean 97 Respiration from ECG 10 SpO2 100 I&O: 07/06/17 07/07/17 07/08/17 06:59 06:59 06:59 Intake Total 4102 3483 Output Total 2120 2350 Balance 1982 1133 Result Diagrams: 07/05/17 05:14 07/07/17 04:54 Additional Labs: Labs reviewed by me Phys Exam - Physical Examination Constitutional: NAD HEENT: moist MMs Neck: supple Respiratory: clear to auscultation bilateral Cardiovascular: RRR Gastrointestinal: soft wound vac Neurological: moves all 4 limbs Psychiatric: normal affect, A&O x 3 Dx/Plan (1) Odilon gangrene Code(s): N49.3 - ODILON GANGRENE Status: Acute Comment: s/p surgery, continue IV antibiotics as below. Gradually improving (2) DAMIAN (acute kidney injury) Code(s): N17.9 - ACUTE KIDNEY FAILURE, UNSPECIFIED Status: Resolved (3) Pancytopenia Code(s): D61.818 - OTHER PANCYTOPENIA Status: Resolved Comment: likely due to sepsis (4) Acute delirium Code(s): R41.0 - DISORIENTATION, UNSPECIFIED Status: Resolved (5) Hypernatremia Code(s): E87.0 - HYPEROSMOLALITY AND HYPERNATREMIA Status: Resolved (6) Hypokalemia Code(s): E87.6 - HYPOKALEMIA Status: Resolved - Plan * . Review of Systems - Review of Systems Constitutional: negative: fever, chills, sweats, weakness, malaise Cardiovascular: negative: chest pain, palpitations, orthopnea, paroxysmal nocturnal dyspnea, edema, light headedness - Medications/Allergies Allergies/Adverse Reactions: Allergies Allergy/AdvReac Type Severity Reaction Status Date / Time No Known Allergies Allergy Unverified 06/28/17 09:08 Medications: Current Medications Heparin Sodium (Porcine) (Heparin) 5,000 units SC TID [facility] Last Admin: 07/07/17 08:29 Dose: 5,000 units Ceftriaxone Sodium 2 gm/ (Sodium Chloride) 100 mls @ 200 mls/hr IVPB 1600 [facility] Last Admin: 07/06/17 15:51 Dose: 100 mls Clindamycin Phosphate/Dextrose (600 mg/ Device) 50 mls @ 100 mls/hr IVPB Q6HR [facility] Last Admin: 07/07/17 12:39 Dose: 50 mls Potassium Chloride 40 meq/ (Sodium Chloride) 270 mls @ 135 mls/hr IVPB ASDIR PRN PRN Reason: FOR SERUM K+ 2.5 - 3.5 Potassium Chloride 40 meq/ (Device) 100 mls @ 50 mls/hr IVPB ASDIR PRN PRN Reason: FOR SERUM K+ 2.5 - 3.5 Last Admin: 07/04/17 10:54 Dose: 100 mls Magnesium Sulfate 1 gm/ Sodium (Chloride) 102 mls @ 102 mls/hr IV PRN PRN PRN Reason: MAG LEVEL 1.4 - 2.0 Magnesium Sulfate 2 gm/ Device 100 mls @ 100 mls/hr IVPB ASDIR PRN PRN Reason: MAGNESIUM < 1.4 Potassium Phosphate 9 mmol/ (Sodium Chloride) 103 mls @ 25.75 mls/hr IVPB ASDIR PRN PRN Reason: Phosphate 1.0-1.8 Potassium Phosphate 12 mmol/ (Sodium Chloride) 254 mls @ 63.5 mls/hr IV ASDIR PRN PRN Reason: Serum phosphate 0.5-0.9 Potassium Phosphate 15 mmol/ (Sodium Chloride) 255 mls @ 63.75 mls/hr IV ASDIR PRN PRN Reason: Serum Phos < 0.5 Dextrose/Water (D5w) 1,000 mls @ 50 mls/hr IV .Q20H [facility] Last Admin: 07/06/17 20:28 Dose: 1,000 mls Loperamide HCl (Imodium) 2 mg PO PRN PRN PRN Reason: Diarrhea/Loose Stools Last Admin: 06/29/17 09:47 Dose: 2 mg Magnesium Oxide (Magnesium Oxide) 400 mg PO BIDPRN PRN PRN Reason: FOR SERUM MAG 1.4 - 2.0 Last Admin: 07/06/17 08:25 Dose: 400 mg Magnesium Oxide (Magnesium Oxide) 800 mg PO PRN PRN PRN Reason: FOR SERUM MAG < 1.4 Miscellaneous Medication (Phos-Nak) 1 pkt PO TIDPRN PRN PRN Reason: FOR PHOS LEVEL 1.0 - 1.8 Miscellaneous Medication (Phos-Nak) 2 pkt PO TIDPRN PRN PRN Reason: FOR PHOS LEVEL 0.5 - 1.0 Morphine Sulfate (Morphine) 2 mg SLOW IVP Q2H PRN PRN Reason: Pain Last Admin: 07/06/17 09:36 Dose: 2 mg Ccu Electrolyte (Replacement Protocol) 0 each FS PRN PRN PRN Reason: FOR ELECTROLYTE REPLACEMENT Potassium Chloride (K-Dur) 40 meq PO ASDIR PRN PRN Reason: FOR SERUM K+ 2.5 - 3.5 Potassium Chloride (Klor-Con) 40 meq PER TUBE ASDIR PRN PRN Reason: FOR SERUM K+ 2.5-3.5 Last Admin: 07/06/17 06:27 Dose: 40 meq Quetiapine Fumarate (Seroquel) 25 mg PO HS [facility] Last Admin: 07/06/17 20:29 Dose: 25 mg
[2017-07-07] MEDS: cefTRIAXone\\ROCEPHIN 2 GM in Sodium Chloride 0.9% 100 ML IVPB SCH (16:12)
--- NOTE | 2017-07-07 18:13 | PRG ---
DATE OF SERVICE: 07/07/2017 SUBJECTIVE: The patient has been transferred to the floor. He still has a Mejia catheter in place. Feeling better. He is walking around the floor. No headaches. No respiratory symptoms or abdomina l pain. No diarrhea. OBJECTIVE: VITAL SIGNS: Normal except for systolic of 170. No distress. HEENT: Ocular movements conjugate. Oral cavity normal. LUNGS: Clear. HEART: S1, S2, regular rate. ABDOMEN: Soft, not distended. Mejia catheter in place and a negative pressure dressing in the right side of the scrotal tissue. The area of pubic erythema has receded markedly. Still has a penile er ythema, and moderate swelling. LABORATORY DATA: White cell count down to 10.3, hemoglobin 10.0, platelets 173. Sodium 139, creatin ine 1.14. Microbiology again with strep pyogenes. ASSESSMENT AND DISCUSSION: Psoriatic arthritis, on Enbrel, with necrotizing fasciitis, scrotal tissu e secondary to strep pyogenes. The patient eventually probably soon will be able to be discharged [place] with wound care and oral antimicrobial therapy. We would advise switching him to Keflex to comple te approximately 10 days of therapy. Hopefully, the Mejia catheter will be able to be removed prior to discharge.
--- NOTE | 2017-07-07 18:30 | PRG ---
DATE OF SERVICE: 07/07/2017 SERVICE: Pulmonary Medicine. INTERVAL HISTORY: The patient is doing fine from a respiratory standpoint. He denies any current chest pain, nausea, vomiting, fevers, chills or shortness of breath. His scrotal discomfort has improved dramatically. Otherwise, there has been no interval change to his condition. PHYSICAL EXAMINATION: VITAL SIGNS: Afebrile, pulse 65, blood pressure 173/90, respirations 16, saturation 98% on room air. GENERAL: The patient is awake and alert, in no apparent distress. LUNGS: Excellent air entry with no prolonged expiratory phase, wheezing, rhonchi or crackles. HEART: Normal rate, regular. ABDOMEN: Soft, nontender, nondistended. Bowel sounds are positive. MUSCULOSKELETAL: No cyanosis or clubbing. There is no pitting in the bilateral lower extremities. NEUROLOGIC: Grossly nonfocal. LABORATORY DATA: Sodium 139 and down trending. Chloride 108 and improving, creatinine 1.14. Calcium 7.2, phosphorus 2.7, magnesium 1.9. Scrotal tissue is growing Streptococcus pyogenes. ASSESSMENT: 1. Septic shock, resolved. 2. Acute hypoxic respiratory failure, resolved. 3. Odilon's gangrene, status post debridement of the scrotal tissue. 4. Metabolic encephalopathy, resolved. 5. Acute kidney injury, resolved. 6. Community-acquired pneumonia, status post full course of therapy. 7. Obstructive sleep apnea, severe, witnessed in the ICU. DISCUSSION AND PLAN: IV fluids will be discontinued. At this point, the patient has no further requirements for inpatient Pulmonary or Critical Care opinion, and I will sign off. Please call with additional questions or concerns moving forward. He will need to follow-up with me in the outpatient setting to set up a polysomnogram. DELVIS
[2017-07-07] MEDS: Cephalexin 250 MG CAP PO SCH (20:33)
--- NOTE | 2017-07-08 04:52 | CON ---
DATE OF HOSPITAL ADMISSION: 06/28/2017 DATE OF CONSULTATION: 07/07/2017 INITIAL REASON FOR CONSULTATION: Odilon's gangrene of the scrotum. BRIEF HISTORY: Mr. Avery is a 62-year-old white male with Strep pyogenes infection of the scrotum an d scrotal midline raphae necrosis. He underwent excision of the Odilon's-type gangrene resolved on 06/29/2017. The patient's scrotum tissue was sent for pathologic evaluation, showed gangrenous necr osis of the skin and was negative for granuloma and neoplasia. The patient had Streptococcus pyogene s isolated from the scrotum and the bilateral loculated hydrocele in his scrotum. He also had Haemop hilus influenzae and sputum specimen, both of these are encapsulated-type organisms. The patient has been seen and evaluated by Dr. Hutson and again evaluated and assessed by Dr. Hutson today. He has be en making good progress and has had no altered mental status issues for several days. Wound care saw and evaluate and assess the patient changed his wound VAC dressing today. He appears to be suitable for outpatient wound VAC therapy. PHYSICAL EXAMINATION: VITAL SIGNS: Temperature 97.6, pulse 65, respirations 16, O2 saturations 98% on room air, blood pres sure 173/90. HEAD, EARS, EYES, NOSE, AND THROAT: Extraocular movements are intact. Sclerae are anicteric. Oroph arynx is clear. NECK: Supple. LUNGS: Clear to auscultation bilaterally. CARDIAC: Regular rate and rhythm without murmur, rub, or gallop. GENITOURINARY: The patient has some scrotal and penile edema today. He has been on IV fluid, recomm end discontinuing VAC. The wound itself looks good and is dressed appropriately. Indwelling Mejia c atheter is in place and was discontinued on rounds. LABORATORY STUDIES: Patient's white count on 07/05/2017 was down to 10.3. There is no current evide nce of left shift on those laboratories. No interval labs have been obtained except for electrolytes which are within normal limits. ASSESSMENT AND PLAN: 1. Scrotal raphae gangrene secondary to Streptococcus pyogenes infection. The patient is recovering well, has been on appropriate antibiotic coverage. Placed on an Infectious Disease consultation by Dr. Hutson, who recommended converting the patient to oral medications and these as an outpatient. He will start on Keflex 500 mg p.o. b.i.d. 2. Excessive hydration and hypertension. Recommend discontinue IV fluid. 3. Genitourinary: The patient is able to ambulate and participate in his own care at this point, th ere is no reason for continuing indwelling catheter and there was discontinued on rounds. 4. Odilon's wound. This could be handled wound VAC as an outpatient and outpatient wound care vis its. Patient may follow up in my office in 2 weeks' time for assessment and further evaluation of his midl ine scrotal raphae debridement. Over 75 minutes of consultation and assessment time was spent with assessment and evaluation of the p atient and care.
[2017-07-08] MEDS: Heparin 5,000 UNITS/ML VIAL SC SCH ×3 (08:08→20:36)
[2017-07-08] MEDS: Cephalexin 250 MG CAP PO SCH ×3 (08:08→20:36)
[2017-07-08] MEDS: Morphine 4 MG/ML VIAL SLOW IVP PRN (11:33)
[2017-07-08] MEDS: Lidocaine 4% Topical Sol 50 ML BOT TOP PRN (11:34)
--- NOTE | 2017-07-08 12:08 | PDOC.PN ---
- Subjective Encounter Start Date: 07/08/17 Encounter Start Time: 08:00 Pt seen for followup re: sathya gangrene. Denies chest pain, shortness of breath, fevers or chills. - Objective MAR Reviewed: Yes Vital Signs & Weight: Vital Signs (12 hours) Temp Pulse Resp BP Pulse Ox 07/08/17 11:27 98.2 F 59 L 16 127/76 97 07/08/17 07:15 98 F 64 16 146/83 H 97 07/08/17 03:38 98.3 F 66 18 158/76 H 98 07/08/17 00:26 97.9 F 59 L 16 152/78 H 99 Weight Admit Weight 223 lb Weight 226 lb Most Recent Monitor Data Heart Rate from ECG 78 NIBP 143/83 NIBP BP-Mean 97 Respiration from ECG 10 SpO2 100 I&O: 07/07/17 07/08/17 07/09/17 06:59 06:59 06:59 Intake Total 3483 4135 Output Total 2350 4875 Balance 1133 -740 Result Diagrams: 07/05/17 05:14 07/07/17 04:54 Additional Labs: Labs reviewed by me Phys Exam - Physical Examination Constitutional: NAD HEENT: moist MMs Neck: supple Respiratory: clear to auscultation bilateral Cardiovascular: RRR Gastrointestinal: soft wound vac Neurological: moves all 4 limbs Psychiatric: normal affect Dx/Plan (1) 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 Review of Systems - Review of Systems Respiratory: negative: Cough, Shortness of Breath, SOB with Excertion, Pleuritic Pain, Wheezing Cardiovascular: negative: chest pain, palpitations, orthopnea, paroxysmal nocturnal dyspnea, edema, light headedness - Medications/Allergies Allergies/Adverse Reactions: Allergies Allergy/AdvReac Type Severity Reaction Status Date / Time No Known Allergies Allergy Unverified 06/28/17 09:08 Medications: Current Medications Cephalexin (Keflex) 500 mg PO TID [facility] Last Admin: 07/08/17 08:08 Dose: 500 mg Heparin Sodium (Porcine) (Heparin) 5,000 units SC TID [facility] Last Admin: 07/08/17 08:08 Dose: 5,000 units Lidocaine HCl (Xylocaine 4% Topical Rhoda) 0 ml TOP .3XWEEKLY PRN PRN Reason: WITH WOUND VAC CHANGES Last Admin: 07/08/17 11:34 Dose: 1 applic Loperamide HCl (Imodium) 2 mg PO PRN PRN PRN Reason: Diarrhea/Loose Stools Last Admin: 06/29/17 09:47 Dose: 2 mg Morphine Sulfate (Morphine) 2 mg SLOW IVP Q2H PRN PRN Reason: Pain Last Admin: 07/08/17 11:33 Dose: 2 mg
[2017-07-09] MEDS: Cephalexin 250 MG CAP PO SCH ×3 (09:23→19:53)
[2017-07-09] MEDS: Heparin 5,000 UNITS/ML VIAL SC SCH ×3 (09:23→19:52)
--- NOTE | 2017-07-09 10:56 | PDOC.PN ---
- Subjective Encounter Start Date: 07/09/17 Encounter Start Time: 07:40 Pt seen for followup re: insomnia. Denies chest pain, shortness of breath, fevers or chills. Awaiting insurance authorization for wound vac. Not sleeping well. - Objective MAR Reviewed: Yes Vital Signs & Weight: Vital Signs (12 hours) Temp Pulse Resp BP BP Pulse Ox 07/09/17 07:49 98.2 F 54 L 12 117/72 96 07/09/17 05:00 98.4 F 61 18 136/88 96 07/09/17 02:48 94 L 07/08/17 23:49 98 F 62 16 155/89 H 98 Weight Admit Weight 223 lb Weight 211 lb 14.4 oz Most Recent Monitor Data Heart Rate from ECG 78 NIBP 143/83 NIBP BP-Mean 97 Respiration from ECG 10 SpO2 100 I&O: 07/08/17 07/09/17 07/10/17 06:59 06:59 06:59 Intake Total 4135 450 Output Total 4875 Balance -740 450 Result Diagrams: 07/05/17 05:14 07/07/17 04:54 Additional Labs: Labs reviewed by me Phys Exam - Physical Examination Obese HEENT: moist MMs Neck: supple Respiratory: clear to auscultation bilateral Cardiovascular: RRR Gastrointestinal: soft Neurological: moves all 4 limbs Psychiatric: normal affect, A&O x 3 Dx/Plan (1) Insomnia Code(s): G47.00 - INSOMNIA, UNSPECIFIED Status: Acute Comment: start PRN melatonin (2) 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 Pt is awaiting insurance auth for wound vac (3) Hypernatremia Code(s): E87.0 - HYPEROSMOLALITY AND HYPERNATREMIA Status: Resolved (4) DAMIAN (acute kidney injury) Code(s): N17.9 - ACUTE KIDNEY FAILURE, UNSPECIFIED Status: Resolved (5) Hypokalemia Code(s): E87.6 - HYPOKALEMIA Status: Resolved (6) Pancytopenia Code(s): D61.818 - OTHER PANCYTOPENIA Status: Resolved Comment: likely due to sepsis (7) Acute delirium Code(s): R41.0 - DISORIENTATION, UNSPECIFIED Status: Resolved - Plan continue antibiotics, PT/OT, out of bed/ambulate * . Review of Systems - Review of Systems Constitutional: negative: fever, chills, sweats, weakness, malaise Cardiovascular: negative: chest pain, palpitations, orthopnea, paroxysmal nocturnal dyspnea, edema, light headedness - Medications/Allergies Allergies/Adverse Reactions: Allergies Allergy/AdvReac Type Severity Reaction Status Date / Time No Known Allergies Allergy Unverified 06/28/17 09:08 Medications: Current Medications Cephalexin (Keflex) 500 mg PO TID [facility] Last Admin: 07/09/17 09:23 Dose: 500 mg Heparin Sodium (Porcine) (Heparin) 5,000 units SC TID [facility] Last Admin: 07/09/17 09:23 Dose: 5,000 units Lidocaine HCl (Xylocaine 4% Topical Rhoda) 0 ml TOP .3XWEEKLY PRN PRN Reason: WITH WOUND VAC CHANGES Last Admin: 07/08/17 11:34 Dose: 1 applic Loperamide HCl (Imodium) 2 mg PO PRN PRN PRN Reason: Diarrhea/Loose Stools Last Admin: 06/29/17 09:47 Dose: 2 mg Morphine Sulfate (Morphine) 2 mg SLOW IVP Q2H PRN PRN Reason: Pain Last Admin: 07/08/17 11:33 Dose: 2 mg
[2017-07-09] MEDS ORDERED: Melatonin 3 MG TAB PO PRN (12:59)
[2017-07-10] MEDS: Cephalexin 250 MG CAP PO SCH ×3 (08:28→20:52)
[2017-07-10] MEDS: Heparin 5,000 UNITS/ML VIAL SC SCH ×3 (08:29→20:52)
--- NOTE | 2017-07-10 12:25 | PDOC.PN ---
- Subjective Encounter Start Date: 07/10/17 Encounter Start Time: 08:40 Pt seen for followup re: Insomnia. Denies chest pain, shortness of breath, fevers or chills. - Objective MAR Reviewed: Yes Vital Signs & Weight: Vital Signs (12 hours) Temp Pulse Resp BP Pulse Ox 07/10/17 11:39 98.1 F 60 16 131/74 97 07/10/17 07:56 98.2 F 52 L 18 145/75 H 96 07/10/17 07:55 98.2 F 52 L 18 96 07/10/17 03:02 96 Weight Admit Weight 223 lb Weight 206 lb 12.8 oz Most Recent Monitor Data Heart Rate from ECG 78 NIBP 143/83 NIBP BP-Mean 97 Respiration from ECG 10 SpO2 100 I&O: 07/09/17 07/10/17 07/11/17 06:59 06:59 06:59 Intake Total 450 1730 Balance 450 1730 Result Diagrams: 07/05/17 05:14 07/07/17 04:54 Additional Labs: Labs reviewed by me Phys Exam - Physical Examination Constitutional: NAD HEENT: moist MMs Neck: supple Cardiovascular: RRR Neurological: moves all 4 limbs Psychiatric: normal affect Deviation from normal: wound vac Dx/Plan (1) Insomnia Code(s): G47.00 - INSOMNIA, UNSPECIFIED Status: Acute Comment: Melatonin did not work, try Ambien (2) Odilon gangrene Code(s): 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 Review of Systems - Review of Systems Constitutional: negative: fever, chills, sweats, weakness, malaise Cardiovascular: negative: chest pain, palpitations, orthopnea, paroxysmal nocturnal dyspnea, edema, light headedness - Medications/Allergies Allergies/Adverse Reactions: Allergies Allergy/AdvReac Type Severity Reaction Status Date / Time No Known Allergies Allergy Unverified 06/28/17 09:08 Medications: Current Medications Cephalexin (Keflex) 500 mg PO TID [facility] Last Admin: 07/10/17 08:28 Dose: 500 mg Heparin Sodium (Porcine) (Heparin) 5,000 units SC TID [facility] Last Admin: 07/10/17 08:29 Dose: 5,000 units Lidocaine HCl (Xylocaine 4% Topical Rhoda) 0 ml TOP .3XWEEKLY PRN PRN Reason: WITH WOUND VAC CHANGES Last Admin: 07/08/17 11:34 Dose: 1 applic Loperamide HCl (Imodium) 2 mg PO PRN PRN PRN Reason: Diarrhea/Loose Stools Last Admin: 06/29/17 09:47 Dose: 2 mg Melatonin (Melatonin) 3 mg PO HS PRN PRN Reason: Insomnia Last Admin: 07/10/17 00:06 Dose: 3 mg Morphine Sulfate (Morphine) 2 mg SLOW IVP Q2H PRN PRN Reason: Pain Last Admin: 07/08/17 11:33 Dose: 2 mg
[2017-07-10] MEDS ORDERED: Zolpidem Tartrate 5 MG TAB PO PRN (12:26)
[2017-07-11] MEDS: Cephalexin 250 MG CAP PO SCH ×3 (09:07→20:38)
[2017-07-11] MEDS: Heparin 5,000 UNITS/ML VIAL SC SCH ×3 (09:08→20:39)
[2017-07-11 10:18] VITALS: BMI 31.3
[2017-07-11] MEDS: Morphine 4 MG/ML VIAL SLOW IVP PRN (13:40)
--- NOTE | 2017-07-11 13:56 | PDOC.PN ---
- Subjective Encounter Start Date: 07/11/17 Encounter Start Time: 08:40 Pt seen for followup re: insomnia. Slept better. No complaints today. - Objective MAR Reviewed: Yes Vital Signs & Weight: Vital Signs (12 hours) Temp Pulse Resp BP Pulse Ox 07/11/17 11:25 98 F 59 L 16 144/88 H 97 07/11/17 08:00 98 F 55 L 14 07/11/17 07:32 98 F 55 L 14 121/72 96 07/11/17 04:00 97.4 F L 51 L 14 136/82 97 Weight Admit Weight 223 lb Weight 206 lb 1.6 oz Most Recent Monitor Data Heart Rate from ECG 78 NIBP 143/83 NIBP BP-Mean 97 Respiration from ECG 10 SpO2 100 I&O: 07/10/17 07/11/17 07/12/17 06:59 06:59 06:59 Intake Total 1729 2019 Balance 1729 2019 Result Diagrams: 07/11/17 14:51 07/11/17 14:51 Additional Labs: Labs reviewed by me Phys Exam - Physical Examination Constitutional: NAD HEENT: moist MMs Neck: supple Respiratory: clear to auscultation bilateral Cardiovascular: RRR wound vac Neurological: moves all 4 limbs Psychiatric: normal affect Dx/Plan (1) Insomnia Code(s): G47.00 - INSOMNIA, UNSPECIFIED Status: Acute Comment: Improved (2) Odilon gangrene Code(s): N49.3 - ODILON GANGRENE Status: Acute Comment: Still awaiting insurance auth for wound vac (3) Hypernatremia Code(s): E87.0 - HYPEROSMOLALITY AND HYPERNATREMIA Status: Resolved (4) DAMIAN (acute kidney injury) Code(s): N17.9 - ACUTE KIDNEY FAILURE, UNSPECIFIED Status: Resolved (5) Hypokalemia Code(s): E87.6 - HYPOKALEMIA Status: Resolved (6) Pancytopenia Code(s): D61.818 - OTHER PANCYTOPENIA Status: Resolved (7) Acute delirium Code(s): R41.0 - DISORIENTATION, UNSPECIFIED Status: Resolved - Plan * . Review of Systems - Review of Systems Constitutional: negative: fever, chills, sweats, weakness, malaise - Medications/Allergies Allergies/Adverse Reactions: Allergies Allergy/AdvReac Type Severity Reaction Status Date / Time No Known Allergies Allergy Unverified 06/28/17 09:08 Medications: Current Medications Cephalexin (Keflex) 500 mg PO TID [facility] Last Admin: 07/11/17 09:07 Dose: 500 mg Heparin Sodium (Porcine) (Heparin) 5,000 units SC TID [facility] Last Admin: 07/11/17 09:08 Dose: 5,000 units Lidocaine HCl (Xylocaine 4% Topical Rhoda) 0 ml TOP .3XWEEKLY PRN PRN Reason: WITH WOUND VAC CHANGES Last Admin: 07/08/17 11:34 Dose: 1 applic Loperamide HCl (Imodium) 2 mg PO PRN PRN PRN Reason: Diarrhea/Loose Stools Last Admin: 06/29/17 09:47 Dose: 2 mg Morphine Sulfate (Morphine) 2 mg SLOW IVP Q2H PRN PRN Reason: Pain Last Admin: 07/11/17 13:40 Dose: 2 mg Zolpidem Tartrate (Ambien) 5 mg PO HSPRN PRN PRN Reason: Insomnia
[2017-07-11 15:13] LABS: #Basophils 0.1 thou/uL (0.0-0.2); #Eosinphils 0.2 thou/uL (0.0-0.7); #Lymphocytes 1.4 thou/uL (1.20-3.40); #Monocytes 0.5 thou/uL (0.11-0.59); #Neutrophils 4.7 thou/uL (1.40-6.50); %Basophils 1.1 % (0.0-1.0); %Eosinophils 2.5 % (0.0-10.0); %Lymphocytes 20.7 % (21.0-51.0); %Monocytes 7.7 % (0.0-10.0); %Neutrophils 68.1 % (42.0-75.0); Hemoglobin 12.4 g/dL (14.0-18.0); Mean Corpuscular HGB CONC 33.4 g/dL (32.0-36.0); Mean Corpuscular Hemoglobin 32.1 pg (27.0-31.0); Mean Corpuscular Volume 95.9 fl (80.0-94.0); Mean Platelet Volume 7.6 fL (7.4-10.4); Platelet Count 241 thou/uL (130-400); RBC Distribution Width 13.4 % (11.5-14.5); Red Blood Cell (RBC) Count 3.86 mill/uL (4.70-6.10); White Blood Cell (WBC) Count 6.9 thou/uL (4.8-10.8)
[2017-07-11 15:37] LABS: Anion Gap 9 mmol/L (10-20); BUN (Urea Nitrogen) 15 mg/dL (8.4-25.7); Calc. Creatinine Clearance 84 mL/min (70-130); Calcium 8.3 mg/dL (7.8-10.44); Carbon Dioxide 29 mmol/L (23-31); Chloride 106 mmol/L (98-107); Estimated GFR-MDRD 62; Glucose 93 mg/dL (80-115); Potassium 4.6 mmol/L (3.5-5.1); Sodium 139 mmol/L (136-145)
[2017-07-11] MEDS: Lidocaine 4% Topical Sol 50 ML BOT TOP PRN (15:58)
[2017-07-12 05:58] LABS: #Basophils 0.1 thou/uL (0.0-0.2); #Eosinphils 0.2 thou/uL (0.0-0.7); #Lymphocytes 1.6 thou/uL (1.20-3.40); #Monocytes 0.5 thou/uL (0.11-0.59); #Neutrophils 3.6 thou/uL (1.40-6.50); %Basophils 1.5 % (0.0-1.0); %Lymphocytes 26.9 % (21.0-51.0); %Monocytes 7.6 % (0.0-10.0); Mean Corpuscular HGB CONC 33.7 g/dL (32.0-36.0); Mean Corpuscular Hemoglobin 32.3 pg (27.0-31.0); Mean Corpuscular Volume 95.6 fl (80.0-94.0); Mean Platelet Volume 7.5 fL (7.4-10.4); Platelet Count 200 thou/uL (130-400); RBC Distribution Width 13.1 % (11.5-14.5); Red Blood Cell (RBC) Count 3.42 mill/uL (4.70-6.10); White Blood Cell (WBC) Count 5.9 thou/uL (4.8-10.8)
[2017-07-12 06:07] LABS: Anion Gap 9 mmol/L (10-20); BUN (Urea Nitrogen) 17 mg/dL (8.4-25.7); Calc. Creatinine Clearance 90 mL/min (70-130); Carbon Dioxide 27 mmol/L (23-31); Chloride 106 mmol/L (98-107); Estimated GFR-MDRD 67; Glucose 86 mg/dL (80-115); Sodium 138 mmol/L (136-145)
[2017-07-12] MEDS: Heparin 5,000 UNITS/ML VIAL SC SCH ×3 (09:17→20:45)
[2017-07-12] MEDS: Cephalexin 250 MG CAP PO SCH ×3 (09:23→20:44)
--- NOTE | 2017-07-12 17:01 | PDOC.PN ---
- Subjective Encounter Start Date: 07/12/17 Encounter Start Time: 16:59 Pt seen for followup re: Odilon gangrene. No c/o chest pain, shortness of breath, fevers or chills. Sleeping on and off. - Objective MAR Reviewed: Yes Vital Signs & Weight: Vital Signs (12 hours) Temp Pulse Resp BP Pulse Ox 07/12/17 15:00 98.1 F 55 L 18 136/66 98 07/12/17 12:00 97.9 F 61 16 129/79 98 07/12/17 08:07 97.6 F 62 20 130/67 98 07/12/17 08:00 98.1 F 55 L 18 Weight Admit Weight 223 lb Weight 206 lb 8 oz Most Recent Monitor Data Heart Rate from ECG 78 NIBP 143/83 NIBP BP-Mean 97 Respiration from ECG 10 SpO2 100 I&O: 07/11/17 07/12/17 07/13/17 06:59 06:59 06:59 Intake Total 2019 850 720 Balance 2019 850 720 Result Diagrams: 07/12/17 05:30 07/12/17 05:30 Additional Labs: Labs reviewed by me Phys Exam - Physical Examination Constitutional: NAD Respiratory: clear to auscultation bilateral Cardiovascular: RRR Gastrointestinal: soft wound vac Dx/Plan (1) Odilon gangrene Code(s): N49.3 - ODILON GANGRENE Status: Acute Comment: Still awaiting insurance auth for wound vac. Signed script today. Will likely be approved tomorrow. Home on [facility] appointment with Dr Putnam for followup (2) Insomnia Code(s): G47.00 - INSOMNIA, UNSPECIFIED Status: Resolved (3) Hypernatremia Code(s): E87.0 - HYPEROSMOLALITY AND HYPERNATREMIA Status: Resolved (4) DAMIAN (acute kidney injury) Code(s): N17.9 - ACUTE KIDNEY FAILURE, UNSPECIFIED Status: Resolved (5) Hypokalemia Code(s): E87.6 - HYPOKALEMIA Status: Resolved (6) Pancytopenia Code(s): D61.818 - OTHER PANCYTOPENIA Status: Resolved (7) Acute delirium Code(s): R41.0 - DISORIENTATION, UNSPECIFIED Status: Resolved - Plan * . Review of Systems - Medications/Allergies Allergies/Adverse Reactions: Allergies Allergy/AdvReac Type Severity Reaction Status Date / Time No Known Allergies Allergy Unverified 06/28/17 09:08 Medications: Current Medications Cephalexin (Keflex) 500 mg PO TID [facility] Last Admin: 07/12/17 16:26 Dose: 500 mg Heparin Sodium (Porcine) (Heparin) 5,000 units SC TID [facility] Last Admin: 07/12/17 16:26 Dose: 5,000 units Lidocaine HCl (Xylocaine 4% Topical Rhoda) 0 ml TOP .3XWEEKLY PRN PRN Reason: WITH WOUND VAC CHANGES Last Admin: 07/11/17 15:58 Dose: 1 applic Loperamide HCl (Imodium) 2 mg PO PRN PRN PRN Reason: Diarrhea/Loose Stools Last Admin: 06/29/17 09:47 Dose: 2 mg Morphine Sulfate (Morphine) 2 mg SLOW IVP Q2H PRN PRN Reason: Pain Last Admin: 07/11/17 13:40 Dose: 2 mg Zolpidem Tartrate (Ambien) 5 mg PO HSPRN PRN PRN Reason: Insomnia
[2017-07-13 11:45] VITALS: BP 152/86; TEMP 98
[2017-07-13] MEDS: Cephalexin 250 MG CAP PO SCH (11:47)
--- NOTE | 2017-07-13 13:05 | DIS ---
DISCHARGE DIAGNOSES: 1. Odilon gangrene with strep pyogenes. 2. Insomnia. 3. Hyponatremia. 4. Acute kidney injury. 5. Hypokalemia. 6. Pancytopenia. 7. Acute delirium. HOSPITAL COURSE: While patient was in hospital, General Surgery as well as Infectious Disease was co nsulted because of his significant infection involving the scrotum. It was found that the patient cummings d Odilon's gangrene which grew positive strep pyogenes. The patient was started on appropriate ant ibiotics. Due to the significance of his infection which was evaluated and debrided by Surgery, it w as felt that the patient would benefit strongly with wound VAC. Wound VAC order was placed which took an extended amount of time in order to get approved. After the bacteria was found as well, the patient was switched on oral antibiotics with Keflex 500 mg p.o. t.i .d. After an extended amount of time of pending the approval of the wound VAC, it eventually finally got improved. After this was done, there was no further interventions that were required therefore we were comfortable discharging the patient home to continue taking antibiotics for a total of 10 day s. He has completed 5 days in-house and will continue with another 5 days at home. He is to follow up with his primary care physician as well as the specialties per the recommendations. The patient h ad no further questions. The patient could be safely discharged home in stable condition. DISCHARGE CONDITION: Much improved from when he first came in. DISCHARGE ACTIVITY: As tolerated. DISCHARGE DIET: Regular diet. DISCHARGE MEDICATIONS: See home medication list which includes also Keflex 500 mg p.o. t.i.d. FOLLOWUP: The patient will follow up on primary care physician in 1 week as well as other specialtie s per their recommendations. DISCHARGE PLAN: Discharge plan is greater than 30 minutes.
== END 2017-07-13 14:33 | disposition home or self-care (01) | DRG 853 ==
LOC: ERS 08:30 → CCU 13:24 → SURG A 07-06 11:26
PROVIDERS: ADMIT Internal Medicine; ATTEND Internal Medicine
PROC: 0JBB0ZZ Excision of Perineum Subcutaneous Tissue and Fascia, Open Approach (ICD-10-PCS; principal; 2017-06-29)
PROC: 2W16X6Z Compression of Right Inguinal Region using Pressure Dressing (ICD-10-PCS; 2017-06-29)
DX: A40.0 Sepsis due to streptococcus, group A (principal); R65.21 Severe sepsis with septic shock; J18.9 Pneumonia, unspecified organism; J96.01 Acute respiratory failure with hypoxia; G93.41 Metabolic encephalopathy; N17.9 Acute kidney failure, unspecified; E87.1 Hypo-osmolality and hyponatremia; D61.818 Other pancytopenia; N49.2 Inflammatory disorders of scrotum; I10 Essential (primary) hypertension; E78.5 Hyperlipidemia, unspecified; L40.50 Arthropathic psoriasis, unspecified; Z79.899 Other long term (current) drug therapy; Z91.14 Patient's other noncompliance with medication regimen; R19.7 Diarrhea, unspecified; N49.3 Fournier gangrene; G47.33 Obstructive sleep apnea (adult) (pediatric); E87.6 Hypokalemia; G47.00 Insomnia, unspecified; R41.0 Disorientation, unspecified
CPT/HCPCS: 36415; 36416; 36556; 71045; 72193; 76770; 76870; 80048; 80053; 80202; 81001; 82805; 83605; 83630; 83735; 83880; 84100; 85007; 85025; 85027; 85060; 87040; 87045; 87046; 87070; 87077; 87081; 87086; 87205; 87324; 87328; 87329; 87449; 87899; 88304; 93005; 93976; 94640; 94660; 94760; 96360; 96361; 96365; 96366; 96367; C1751; G8978-GP-CJ; G8979-GP-CJ; G8980-GP-CJ; G8996-GN-CI; G8997-GN-CI; G9168-GN-CJ; G9169-GN-CJ; J0696; J1170; J1630; J1644; J1720; J1940; J2001; J2060; J2250; J2270; J2405; J2543; J2704; J3010; J3370; J3475; J3480; J3490; J7050; J7611; S0020; S0028

== ENCOUNTER 2017-07-14 08:50 | Outpatient (CLI) | payer OTHER ==
[2017-07-14] MEDS ORDERED: Lidocaine 4% Topical Sol 50 ML BOT ONE (09:00)
== END 2017-07-14 08:51 | disposition home or self-care (01) ==
LOC: WCC 08:50
PROVIDERS: ATTEND Family Medicine
DX: T81.89XD Other complications of procedures, not elsewhere classified, subsequent encounter (principal)
CPT/HCPCS: 97605; J2001

== ENCOUNTER 2017-07-18 08:46 | Outpatient (CLI) | payer OTHER | END 2017-07-18 08:47 | disposition home or self-care (01) | LOC: WCC 08:46 | PROVIDERS: ATTEND Family Medicine | DX: T81.89XD Other complications of procedures, not elsewhere classified, subsequent encounter (principal) ==

== ENCOUNTER 2017-07-21 13:32 | Outpatient (CLI) | payer OTHER ==
[~2017-07-21 13:32] MED LIST: Sodium Chloride 0.9% 15 ML NEB ONE
== END 2017-07-21 13:33 | disposition home or self-care (01) ==
LOC: WCC 13:32
PROVIDERS: ATTEND Family Medicine
DX: T81.89XD Other complications of procedures, not elsewhere classified, subsequent encounter (principal)
CPT/HCPCS: 97605; A4218

== ENCOUNTER 2017-07-25 13:44 | Outpatient (CLI) | payer OTHER ==
[~2017-07-25 13:44] MED LIST changes: +Lidocaine 4% Topical Sol 50 ML BOT ONE
== END 2017-07-25 13:45 | disposition home or self-care (01) ==
LOC: WCC 13:44
PROVIDERS: ATTEND Family Medicine
DX: T81.89XD Other complications of procedures, not elsewhere classified, subsequent encounter (principal)
CPT/HCPCS: 97605; A4218; J2001

== ENCOUNTER 2017-07-28 09:43 | Outpatient (CLI) | payer OTHER ==
--- NOTE | 2017-07-28 11:57 | HP ---
DATE OF SERVICE: 07/28/2017 HISTORY OF PRESENT ILLNESS: Mr. Mono Avery is a very pleasant 62-year-old gentleman who presents to the Wound Center for evaluation of a scrotal wound subsequent to wide debridement of scrotal Fourn ier's gangrene on 06/29/2017. The patient underwent the preceding procedure by Dr. Jorje Putnam. Neg ative pressure therapy was initiated subsequent to surgery during the patient's hospital stay and upo n discharge from [facility], the patient was referred to the Wound Center for assistance with dressing changes of the wound VAC. The patient was discharged to home on Keflex 500 mg p.o. t.i.d. PAST MEDICAL HISTORY: 1. Hypertension. 2. Psoriatic arthritis/psoriasis. PAST SURGICAL HISTORY: 1. Right shoulder surgery. 2. Appendectomy. 3. Wide debridement of scrotal Odilon's gangrene on 06/29/2017. MEDICATIONS: 1. Lisinopril. 2. Simvastatin. 3. Fish oil. 4. Probiotics. 5. Various vitamins, the names of which the patient is unable to recall. ALLERGIES: No known diagnosed allergies. SOCIAL HISTORY: Significant for tobacco use in the past. The patient states he stopped smoking 30 y ears ago. The patient states that he smoked 1 pack of cigarettes every 2-3 days for approximately 12 years. The patient admits to the consumption of 2 drinks per week for the past 20 years. FAMILY HISTORY: Significant for diabetes mellitus. The patient states that his mother was diagnosed with diabetes mellitus. Family history is negative for coronary artery disease. PHYSICAL EXAMINATION: VITAL SIGNS: Temperature 98.0, pulse 82, respirations 17, blood pressure 137/78. GENERAL: A 62-year-old gentleman lying on table in examination room, in no acute distress. HEENT: Normocephalic, atraumatic. NECK: No nuchal rigidity. CHEST: Clear to auscultation. CARDIAC: Regular rate and rhythm. ABDOMEN: Soft. EXTREMITIES: No clubbing or cyanosis. NEUROLOGIC: Grossly nonfocal. PERINEUM: A scrotal wound is present which measures approximately 3.9 x 3.2 cm. Granulation tissue is present within the wound margins. A small amount of necrotic tissue is visible within the wound m argins. No purulent drainage is associated with the wound. No erythema of the skin surrounding the wound is present. No maceration of the skin of the periwound is noted. ASSESSMENT AND PLAN: 1. Scrotal wound as described above. Negative pressure therapy will be continued with dressing gonzales ges of the wound VAC 2 times per week here in the Wound Center. The wound VAC will be placed to sett ings of 125 mmHg, continuous. Adaptic at the time of dressing changes will be discontinued. The pat ieibrahima states he has a followup appointment with Dr. Putnam in 1 week. I will see Mr. Avery again in 3 weeks. The patient understands and is in agreement with the preceding treatment plan. 2. Hypertension. 3. Psoriatic arthritis/psoriasis.
== END 2017-07-28 09:44 | disposition home or self-care (01) ==
LOC: WCC 09:43
PROVIDERS: ATTEND Family Medicine
DX: T81.89XD Other complications of procedures, not elsewhere classified, subsequent encounter (principal); I10 Essential (primary) hypertension
CPT/HCPCS: 97605

== ENCOUNTER 2017-08-01 14:33 | Outpatient (CLI) | payer OTHER ==
[2017-08-01] MEDS ORDERED: Sodium Chloride 0.9% 15 ML NEB ONE (18:44)
== END 2017-08-01 14:34 | disposition home or self-care (01) ==
LOC: WCC 14:33
PROVIDERS: ATTEND Family Medicine
DX: T81.89XD Other complications of procedures, not elsewhere classified, subsequent encounter (principal)
CPT/HCPCS: 97605; A4218

== ENCOUNTER 2017-08-04 07:35 | Outpatient (CLI) | payer OTHER ==
[2017-08-04] MEDS ORDERED: Sodium Chloride 0.9% 15 ML NEB ONE (18:58)
== END 2017-08-04 07:36 | disposition home or self-care (01) ==
LOC: WCC 07:35
PROVIDERS: ATTEND Family Medicine
DX: T81.89XD Other complications of procedures, not elsewhere classified, subsequent encounter (principal)
CPT/HCPCS: 97605; A4218

== ENCOUNTER 2017-08-08 07:34 | Outpatient (CLI) | payer OTHER ==
[2017-08-14] MEDS ORDERED: Sodium Chloride 0.9% 15 ML NEB ONE (15:18)
== END 2017-08-08 07:35 | disposition home or self-care (01) ==
LOC: WCC 07:34
PROVIDERS: ATTEND Family Medicine
DX: T81.89XD Other complications of procedures, not elsewhere classified, subsequent encounter (principal)
CPT/HCPCS: 97602; A4218

== ENCOUNTER 2017-08-15 10:02 | Outpatient (CLI) | payer OTHER ==
--- NOTE | 2017-08-15 10:51 | PRG ---
DATE OF SERVICE: 08/15/2017 HISTORY: Mr. Mono Saenz is a very pleasant 62-year-old gentleman who presents to the [facility] for evaluation of a scrotal wound subsequent to wide debridement of scrotal Odilon's gangrene o n 06/29/2017. The patient underwent the preceding procedure by Dr. Jorje Putnam. Negative pressure t herapy was initiated subsequent to surgery during the patient's hospital stay and upon discharge from [facility] the patient was referred to the Wound Center for assistance with d ressing changes of the wound VAC. The patient was discharged to home on Keflex 500 mg p.o. t.i.d. S matt the patient's visit on 07/28/2017, negative pressure therapy has been discontinued by Dr. Putnam . The patient states he has been performing wet to dry dressing changes for his scrotal wound. PHYSICAL EXAMINATION: VITAL SIGNS: Temperature 98.0, pulse 71, respirations 17, blood pressure 114/81. PERINEUM: A scrotal wound is present which measures approximately 2.0 x 1.2 cm. The dimensions of t he wound at the time of the patient's visit on 07/28/2017 were approximately 3.9 x 3.2 cm. Granulati on tissue is present within the wound margins. No purulent drainage is associated with the wound. N o erythema of the skin surrounding the wound is present. No maceration of the skin of the periwound is noted. ASSESSMENT AND PLAN: 1. Scrotal wound as described above. The patient has completed a course of negative pressure therap y. Wet to dry dressing changes will be continued on a daily basis after cleansing and irrigation. T he patient is performing his own dressing changes. The patient states he has a followup appointment with Dr. Putnam in approximately 4 weeks. I will see Mr. Avery again in two weeks. 2. Hypertension. 3. Psoriatic arthritis/psoriasis.
== END 2017-08-15 10:03 | disposition home or self-care (01) ==
LOC: WCC 10:02
PROVIDERS: ATTEND Family Medicine
DX: S31.30XA Unspecified open wound of scrotum and testes, initial encounter (principal); I10 Essential (primary) hypertension; L40.50 Arthropathic psoriasis, unspecified
CPT/HCPCS: 97602

== ENCOUNTER 2017-08-29 10:04 | Outpatient (CLI) | payer OTHER ==
--- NOTE | 2017-08-29 11:30 | PRG ---
DATE OF SERVICE: 08/29/2017 HISTORY: Mr. Mono Avery is a very pleasant 62-year-old gentleman, who presents to the [facility] for evaluation of a scrotal wound, subsequent to wide debridement of scrotal Odilon's gangrene on 06/29/2017. The patient underwent the preceding procedure by Dr. Jorje Putnam. Negative pressure th erapy was initiated subsequent to surgery during the patient's hospital stay, and upon discharge from [facility], the patient was referred to the [facility] for assistance with dressing changes of the wound VAC. The patient was discharged to home on Keflex 500 mg p.o. t.i.d. The patient has completed a course of negative pressure therapy and has been performing wet-to-dry dr ortega changes for his scrotal wound. PHYSICAL EXAMINATION: VITAL SIGNS: Temperature 98.0, pulse 71, respirations 18, blood pressure 126/79. PERINEUM: A scrotal wound is present, which measures approximately 1.5 x 0.5 cm. The dimensions of the wound at the time of the patient's visit on 08/15/2017 were approximately 2.0 x 1.2 cm. Granulat ion tissue is present within the wound margins. No purulent drainage is associated with the wound. No erythema of the skin surrounding the wound is present. No maceration of the skin of the periwound is noted. ASSESSMENT AND PLAN: 1. Scrotal wound as described above. The patient has completed a course of negative pressure therap y. Dressing changes of bordered gauze will be initiated today. These dressing changes are to be per formed on a daily basis after cleansing and irrigation. Wet-to-dry dressing changes will be disconti nued. The patient is performing his own dressing changes. The patient has a followup appointment wi chacorta Putnam in 2 weeks. I will see Mr. Avery again as needed after his evaluation by Urology. 2. Hypertension. 3. Psoriatic arthritis/psoriasis.
== END 2017-08-29 10:05 | disposition home or self-care (01) ==
LOC: WCC 10:04
PROVIDERS: ATTEND Family Medicine
DX: T81.89XD Other complications of procedures, not elsewhere classified, subsequent encounter (principal); M00.9 Pyogenic arthritis, unspecified; I10 Essential (primary) hypertension

== ENCOUNTER 2017-09-05 18:00 | Outpatient (CLI) | payer OTHER | END 2017-09-05 18:01 | disposition home or self-care (01) | LOC: SLEEPLAB 18:00 | PROVIDERS: ATTEND Internal Medicine | DX: G47.33 Obstructive sleep apnea (adult) (pediatric) (principal); E66.9 Obesity, unspecified; K21.9 Gastro-esophageal reflux disease without esophagitis; R35.1 Nocturia; I10 Essential (primary) hypertension | CPT/HCPCS: 95806 ==

== ENCOUNTER 2020-06-19 09:34 | Outpatient (CLI) | payer MEDICARE, OTHER | END 2020-06-19 09:35 | disposition home or self-care (01) | LOC: BICMRI 09:34 | PROVIDERS: ATTEND Orthopaedic Surgery | DX: S46.912A Strain of unspecified muscle, fascia and tendon at shoulder and upper arm level, left arm, initial encounter (principal); M67.814 Other specified disorders of tendon, left shoulder ==

== ENCOUNTER 2020-07-15 09:57 | Outpatient (CLI) | payer MEDICARE, OTHER ==
[2020-07-15 10:56] LABS: #Eosinphils 0.2 10x3/uL (0.0-0.5); #Monocytes 0.6 10x3/uL (0.0-1.1); #Neutrophils 5.2 10x3/uL (1.5-8.4); %Basophils 0.6 % (0.0-2.0); %Eosinophils 2.4 % (0.0-6.0); %Lymphocytes 16.6 % (18.0-47.0); %Monocytes 7.9 % (0.0-10.0); %Neutrophils 72.1 % (40.0-75.0); Hemoglobin 14.6 g/dL (13.5-17.5); Mean Corpuscular Hemoglobin 30.7 pg (27.0-33.0); Mean Corpuscular Volume 90.3 fl (81.2-95.1); Mean Platelet Volume 9.5 fl (7.4-10.4); Platelet Count 209 10x3/uL (150-450); RBC Distribution Width 13.3 % (11.5-14.5); Red Blood Cell (RBC) Count 4.76 10x6/uL (4.32-5.72); White Blood Cell (WBC) Count 7.2 10x3/uL (3.5-10.5)
[2020-07-15 11:11] LABS: Prothrombin Time 10.6 sec (9.5-12.1)
[2020-07-15 11:27] LABS: Anion Gap 13 mmol/L (10-20); BUN (Urea Nitrogen) 17 mg/dL (8.4-25.7); Calc. Creatinine Clearance 0 mL/min (70-130); Calcium 9.4 mg/dL (7.8-10.44); Carbon Dioxide 24 mmol/L (23-31); Chloride 105 mmol/L (98-107); Glucose 114 mg/dL (80-115); Potassium 4.3 mmol/L (3.5-5.1); Sodium 138 mmol/L (136-145)
[2020-07-15 12:04] LABS: Bilirubin Neg (Negative); Blood, Urine Negative (Negative); Clarity Clear (Clear); Glucose, Urine (Dipstick) Normal (Negative); Ketone, Urine Negative (Negative); Leukocyte Negative (Negative); Nitrite Negative (Negative); Protein, Urine (Dipstick) Negative (Neg-Trace); Specific Gravity, Urine 1.015 (1.002-1.036); Urobilinogen Normal mg/dL (Less than 2)
[2020-07-15 12:21] LABS: RBC/HPF None Seen HPF (0-3); Squamous Epithelial None Seen HPF (0-3); WBC/HPF None Seen HPF (0-3)
[2020-07-15 12:22] LABS: Bacteria/HPF None Seen HPF (None Seen)
== END 2020-07-15 09:58 | disposition home or self-care (01) ==
LOC: LABBT 09:57
PROVIDERS: ATTEND Orthopaedic Surgery
DX: Z01.818 Encounter for other preprocedural examination (principal); Z20.822 Contact with and (suspected) exposure to COVID-19; S46.812A Strain of other muscles, fascia and tendons at shoulder and upper arm level, left arm, initial encounter
CPT/HCPCS: 80048; 81001; 85025; 85610; 86850; 86900; 86901; 93005; U0003; U0005; 93010

== ENCOUNTER 2020-07-18 05:57 | Day surgery (SDC) | payer MEDICARE ==
[2020-07-15 20:38] LABS: SARS-CoV-2 PCR by NAA Not Detected (NotDetected)
[2020-07-16 14:54] VITALS: BMI 34.7
[2020-07-18] MEDS ORDERED: Fentanyl 100 MCG/2 ML VIAL ONE ×2 (07:00→07:46)
[2020-07-18] MEDS ORDERED: Bupivacaine HCl 0.5%/Epinephrine 1:200,000/PF 30 ml Vial ONE (07:00)
[2020-07-18] MEDS ORDERED: Midazolam HCl 2 mg/2 ml Vial ONE (07:00)
[2020-07-18] MEDS ORDERED: Famotidine/PF 20 mg/2ml Vial ONE (07:40)
[2020-07-18] MEDS ORDERED: Fentanyl 100 MCG/2 ML VIAL IV PRN (07:46)
[2020-07-18] MEDS ORDERED: Rocuronium Bromide 10 MG/ML (10ML VIAL) ONE (07:47)
[2020-07-18] MEDS ORDERED: Ondansetron PF 4 MG/2 ML Vial ONE (07:47)
[2020-07-18] MEDS ORDERED: PROPOFOL 200 MG/20 ML VIAL ONE (07:47)
[2020-07-18] MEDS ORDERED: PHENYLEPHRINE-NS 100 MCG/ML 10 ML SYRINGE ONE (07:47)
[2020-07-18] MEDS ORDERED: Dexamethasone 20 MG/5 ML VIAL ONE (07:47)
[2020-07-18] MEDS ORDERED: ePHEDrine Sulfate 50 MG/10 ML VIAL ONE (07:47)
[2020-07-18] MEDS ORDERED: Lidocaine 1% PF 5 ML VIAL ONE (07:47)
[2020-07-18] MEDS ORDERED: Glycopyrrolate 0.2 MG/ML 5 ML SYRINGE ONE (07:47)
[2020-07-18] MEDS ORDERED: Ropivacaine 0.2% 550 ML 550 ML NERVE BLCK SCH (08:00)
[2020-07-18] MEDS ORDERED: Zolpidem Tartrate 5 MG TAB PO PRN (08:00)
[2020-07-18] MEDS ORDERED: Ketorolac Tromethamine 30 MG/ML VIAL IVP PRN (08:00)
[2020-07-18] MEDS ORDERED: Ondansetron PF 4 MG/2 ML Vial IVP PRN (08:00)
[2020-07-18] MEDS ORDERED: HYDROcodone/Acetaminophen 10/325 mg Tablet PO PRN ×2 (08:00)
[2020-07-18] MEDS ORDERED: traMADol HCl 50 MG TAB PO PRN ×2 (08:00)
[2020-07-18] MEDS ORDERED: Promethazine HCl 25 MG/ML VIAL IM PRN (08:00)
== END 2020-07-18 13:25 | disposition home or self-care (01) ==
LOC: SDC 05:57
PROVIDERS: ATTEND Orthopaedic Surgery
PROC: 0LQ20ZZ Repair Left Shoulder Tendon, Open Approach (ICD-10-PCS; principal; 2020-07-18)
PROC: 0LS40ZZ Reposition Left Upper Arm Tendon, Open Approach (ICD-10-PCS; 2020-07-18)
PROC: 3E0T3BZ Introduction of Anesthetic Agent into Peripheral Nerves and Plexi, Percutaneous Approach (ICD-10-PCS; 2020-07-18)
DX: S46.212A Strain of muscle, fascia and tendon of other parts of biceps, left arm, initial encounter (principal); M75.112 Incomplete rotator cuff tear or rupture of left shoulder, not specified as traumatic; S43.085A Other dislocation of left shoulder joint, initial encounter; S43.492A Other sprain of left shoulder joint, initial encounter; G89.18 Other acute postprocedural pain; E78.5 Hyperlipidemia, unspecified; I10 Essential (primary) hypertension; G47.33 Obstructive sleep apnea (adult) (pediatric); L40.50 Arthropathic psoriasis, unspecified; F17.290 Nicotine dependence, other tobacco product, uncomplicated; E66.9 Obesity, unspecified; Z68.34 Body mass index [BMI] 34.0-34.9, adult; Z79.899 Other long term (current) drug therapy; Z20.822 Contact with and (suspected) exposure to COVID-19
CPT/HCPCS: 23412; 23430; 64415; 86850; 86900; 86901; A4306; U0003; U0005; J0690; J1100; J2250; J2405; J2704; J2795; J3010; J3370; S0028

== ENCOUNTER 2020-11-10 10:18 | Outpatient (CLI) | payer MEDICARE | END 2020-11-10 10:19 | disposition home or self-care (01) | LOC: BICMRI 10:18 | PROVIDERS: ATTEND Nurse Practitioner Family | DX: M51.16 Intervertebral disc disorders with radiculopathy, lumbar region (principal); M48.061 Spinal stenosis, lumbar region without neurogenic claudication | CPT/HCPCS: 72148 ==

== ENCOUNTER 2020-11-19 12:16 | Outpatient (CLI) | payer MEDICARE ==
[~2020-11-19 12:16] MED LIST changes: -Lidocaine 4% Topical Sol 50 ML BOT ONE; +Magnevist 469MG/ML 20 ML VIAL ONE; -Sodium Chloride 0.9% 15 ML NEB ONE
== END 2020-11-19 12:17 | disposition home or self-care (01) ==
LOC: MRI 12:16
PROVIDERS: ATTEND Internal Medicine Hematology & Oncology
DX: C79.51 Secondary malignant neoplasm of bone (principal); E83.52 Hypercalcemia
CPT/HCPCS: 70553; A9579

== ENCOUNTER 2020-12-24 16:54 | Inpatient (IN) | payer MEDICARE ==
[2020-12-24] MEDS ORDERED: Acetaminophen 500 MG TAB ONE (17:18)
[2020-12-24 17:38] LABS: Mean Corpuscular HGB CONC 34.6 g/dL (32.0-36.0); Mean Corpuscular Hemoglobin 31.1 pg (27.0-31.0); Mean Corpuscular Volume 89.8 fL (78.0-98.0); Mean Platelet Volume 6.1 fL (7.4-10.4); Platelet Count 136 thou/uL (130-400); RBC Distribution Width 13.5 % (11.5-14.5); Red Blood Cell (RBC) Count 3.21 mill/uL (4.70-6.10); White Blood Cell (WBC) Count 4.9 thou/uL (4.8-10.8)
[2020-12-24] MEDS ORDERED: Vancomycin 1 GM/200 ML BAG ONE (17:40)
[2020-12-24] MEDS ORDERED: Piperacillin/Tazobactam 3.375 GM VIAL ONE (17:40)
[2020-12-24 17:49] LABS: ALT (SGPT) 37 U/L (8-55); AST (SGOT) 31 U/L (5-34); Albumin 3.5 g/dL (3.4-4.8); Alkaline Phosphatase 278 U/L (40-110); Anion Gap 16 mmol/L (10-20); BUN (Urea Nitrogen) 31 mg/dL (8.4-25.7); Bilirubin, Total 0.6 mg/dL (0.2-1.2); Calc. Creatinine Clearance 0 mL/min (70-130); Carbon Dioxide 28 mmol/L (23-31); Chloride 96 mmol/L (98-107); Globulin 3.7 g/dL (2.4-3.5); Glucose 111 mg/dL (80-115); Potassium 4.2 mmol/L (3.5-5.1); Protein, Total 7.2 g/dL (5.8-8.1); Sodium 136 mmol/L (136-145)
[2020-12-24 17:54] LABS: Calcium 12.1 mg/dL (7.8-10.44)
[2020-12-24 18:00] LABS: Band 11 % (5-11); Eosinophils 1 % (0-10); Lymphocytes 12 % (21-51); MDiff Complete? YES; Monocytes 13 % (0-10); Myelocyte 1 % (0-0); Neutrophil 62 % (42-75); Platelet Morphology Comment Appears Adequate; RBC Morphology Normal
[2020-12-24 18:31] LABS: Bilirubin Negative (Negative); Blood, Urine Negative (Negative); Clarity Clear (Clear); Glucose, Urine (Dipstick) Normal (Negative); Ketone, Urine Negative (Negative); Leukocyte Negative Leu/uL (Negative); Nitrite Negative (Negative); Protein, Urine (Dipstick) 20 mg/dL (Neg-Trace); Specific Gravity, Urine 1.021 (1.002-1.036); Urobilinogen Normal mg/dL (Less than 2); pH, Urine 5.5 (5.0-9.0)
[2020-12-24] MEDS ORDERED: Sodium Chloride 0.9% 1,000 ML IV SCH (19:45)
[2020-12-24 19:56] VITALS: BMI 29.9
[2020-12-24] MEDS ORDERED: Ondansetron PF 4 MG/2 ML Vial IVP PRN (22:00)
[2020-12-24] MEDS ORDERED: Piperacillin/Tazobactam 3.375 GM in Sodium Chloride 0.9% 100 ML IVPB SCH ×2 (22:30→23:59)
[2020-12-24] MEDS: Sodium Chloride 0.9% 1,000 ML IV SCH (23:08)
[2020-12-25] MEDS: Piperacillin/Tazobactam 3.375 GM in Sodium Chloride 0.9% 100 ML IVPB SCH ×3 (05:25→22:50)
[2020-12-25 05:47] LABS: Anion Gap 11 mmol/L (10-20); BUN (Urea Nitrogen) 25 mg/dL (8.4-25.7); Calc. Creatinine Clearance 68 mL/min (70-130); Calcium 10.6 mg/dL (7.8-10.44); Carbon Dioxide 29 mmol/L (23-31); Chloride 102 mmol/L (98-107); Glucose 101 mg/dL (80-115); Potassium 3.9 mmol/L (3.5-5.1); Sodium 138 mmol/L (136-145)
[2020-12-25 05:52] LABS: Band 18 % (5-11); Eosinophils 4 % (0-10); Lymphocytes 7 % (21-51); MDiff Complete? YES; Mean Corpuscular HGB CONC 33.9 g/dL (32.0-36.0); Mean Corpuscular Hemoglobin 30.5 pg (27.0-31.0); Mean Corpuscular Volume 90.1 fL (78.0-98.0); Mean Platelet Volume 6.1 fL (7.4-10.4); Metamyelocyte 3 % (0-0); Monocytes 19 % (0-10); Myelocyte 3 % (0-0); Neutrophil 46 % (42-75); Platelet Count 97 thou/uL (130-400); Platelet Morphology Comment Appears Decreased; RBC Distribution Width 13.4 % (11.5-14.5); Red Blood Cell (RBC) Count 2.61 mill/uL (4.70-6.10); White Blood Cell (WBC) Count 3.5 thou/uL (4.8-10.8)
[2020-12-25] MEDS: Gabapentin 300 MG CAP PO SCH ×2 (08:56→20:27)
[2020-12-25] MEDS: Buprenorphine Hcl [Belbuca] 300 MCG Film TOP SCH ×2 (08:56→22:00)
[2020-12-25] MEDS: Vancomycin 1.5 GRAM/300 ML BAG 1.5 GM in Premix Bag 1 BAG IVPB SCH (09:02)
[2020-12-25] MEDS: Enoxaparin Sodium 40 MG/0.4 ML SYRINGE SC SCH (09:03)
[2020-12-25 12:30] LABS: SARS-CoV-2 PCR by NAA Not Detected (NotDetected)
[2020-12-25] MEDS: Sodium Chloride 0.9% 1,000 ML IV SCH ×2 (14:17→22:50)
[2020-12-25] MEDS ORDERED: hydrALAZINE 25 MG TAB PO PRN (14:26)
[2020-12-25] MEDS: Buprenorphine Hcl [Belbuca] 150 MCG Film TOP PRN ×3 (17:21→22:42)
[2020-12-25] MEDS: Amitriptyline HCl 25 MG TAB PO SCH (20:27)
[2020-12-25] MEDS: Atorvastatin Calcium 10 MG TAB PO SCH (20:28)
[2020-12-26] MEDS: Piperacillin/Tazobactam 3.375 GM in Sodium Chloride 0.9% 100 ML IVPB SCH ×3 (06:42→17:37)
[2020-12-26] MEDS: Enoxaparin Sodium 40 MG/0.4 ML SYRINGE SC SCH (07:38)
[2020-12-26] MEDS: Buprenorphine Hcl [Belbuca] 300 MCG Film TOP SCH ×2 (08:39→20:25)
[2020-12-26] MEDS: Gabapentin 300 MG CAP PO SCH ×2 (08:39→20:23)
[2020-12-26 09:43] LABS: #Eosinphils 0.1 thou/uL (0.0-0.7); #Lymphocytes 0.3 thou/uL (1.20-3.40); #Monocytes 0.6 thou/uL (0.11-0.59); #Neutrophils 3.1 thou/uL (1.40-6.50); %Basophils 0.2 % (0.0-1.0); %Eosinophils 1.5 % (0.0-10.0); %Lymphocytes 7.6 % (21.0-51.0); %Monocytes 13.6 % (0.0-10.0); %Neutrophils 77.1 % (42.0-75.0); Hemoglobin 8.2 g/dL (14.0-18.0); Mean Corpuscular HGB CONC 34.4 g/dL (32.0-36.0); Mean Corpuscular Hemoglobin 31.1 pg (27.0-31.0); Mean Corpuscular Volume 90.5 fL (78.0-98.0); Mean Platelet Volume 5.9 fL (7.4-10.4); Platelet Count 102 thou/uL (130-400); RBC Distribution Width 13.5 % (11.5-14.5); Red Blood Cell (RBC) Count 2.64 mill/uL (4.70-6.10); White Blood Cell (WBC) Count 4.1 thou/uL (4.8-10.8)
[2020-12-26 10:02] LABS: Vancomycin, Trough 8.4 ug/mL
[2020-12-26 10:04] LABS: Anion Gap 13 mmol/L (10-20); BUN (Urea Nitrogen) 19 mg/dL (8.4-25.7); Calc. Creatinine Clearance 83 mL/min (70-130); Calcium 9.5 mg/dL (7.8-10.44); Carbon Dioxide 25 mmol/L (23-31); Chloride 103 mmol/L (98-107); Glucose 90 mg/dL (80-115); Potassium 3.7 mmol/L (3.5-5.1); Sodium 137 mmol/L (136-145)
[2020-12-26] MEDS ORDERED: Vancomycin 1 GM in Premix Bag 1 BAG IVPB SCH (10:15)
[2020-12-26] MEDS: Vancomycin 1.5 GRAM/300 ML BAG 1.5 GM in Premix Bag 1 BAG IVPB SCH (10:18)
[2020-12-26] MEDS ORDERED: Iopamidol 370 76% 100 ML VIAL ONE (10:19)
[2020-12-26] MEDS: Vancomycin 1 GM in Premix Bag 1 BAG IVPB SCH (16:29)
[2020-12-26] MEDS: Sodium Chloride 0.9% 1,000 ML IV SCH ×2 (16:32→23:34)
[2020-12-26] MEDS: Acetaminophen 325 MG TAB PO PRN (20:23)
[2020-12-26] MEDS: Atorvastatin Calcium 10 MG TAB PO SCH (20:25)
[2020-12-26] MEDS: Amitriptyline HCl 25 MG TAB PO SCH (20:25)
[2020-12-26] MEDS ORDERED: Sodium Chloride 0.9% 500 ML IV SCH (21:45)
[2020-12-27] MEDS: Piperacillin/Tazobactam 3.375 GM in Sodium Chloride 0.9% 100 ML IVPB SCH ×3 (00:22→17:33)
[2020-12-27] MEDS: Vancomycin 1 GM in Premix Bag 1 BAG IVPB SCH ×2 (03:55→16:17)
[2020-12-27] MEDS: Enoxaparin Sodium 40 MG/0.4 ML SYRINGE SC SCH (09:38)
[2020-12-27] MEDS: Gabapentin 300 MG CAP PO SCH ×2 (09:38→20:36)
[2020-12-27] MEDS: Buprenorphine Hcl [Belbuca] 300 MCG Film TOP SCH ×3 (10:33→20:35)
[2020-12-27] MEDS: Acetaminophen 325 MG TAB PO PRN ×2 (12:44→20:36)
[2020-12-27 13:14] LABS: #Lymphocytes 0.2 thou/uL (1.20-3.40); #Monocytes 0.5 thou/uL (0.11-0.59); %Basophils 0.2 % (0.0-1.0); %Eosinophils 0.4 % (0.0-10.0); %Lymphocytes 5.4 % (21.0-51.0); %Monocytes 14.4 % (0.0-10.0); %Neutrophils 79.6 % (42.0-75.0); Hemoglobin 7.9 g/dL (14.0-18.0); Mean Corpuscular HGB CONC 34.5 g/dL (32.0-36.0); Mean Corpuscular Hemoglobin 31.2 pg (27.0-31.0); Mean Corpuscular Volume 90.6 fL (78.0-98.0); Mean Platelet Volume 5.8 fL (7.4-10.4); Platelet Count 102 thou/uL (130-400); Red Blood Cell (RBC) Count 2.53 mill/uL (4.70-6.10); White Blood Cell (WBC) Count 3.8 thou/uL (4.8-10.8)
[2020-12-27 13:31] LABS: Anion Gap 13 mmol/L (10-20); BUN (Urea Nitrogen) 18 mg/dL (8.4-25.7); Calc. Creatinine Clearance 72 mL/min (70-130); Calcium 8.4 mg/dL (7.8-10.44); Carbon Dioxide 25 mmol/L (23-31); Chloride 103 mmol/L (98-107); Glucose 144 mg/dL (80-115); Potassium 3.6 mmol/L (3.5-5.1); Sodium 137 mmol/L (136-145)
[2020-12-27] MEDS ORDERED: Lorazepam 2 MG/ML VIAL SLOW IVP PRN (14:04)
[2020-12-27] MEDS: Sodium Chloride 0.9% 1,000 ML IV SCH (14:54)
[2020-12-27] MEDS: Atorvastatin Calcium 10 MG TAB PO SCH (20:36)
[2020-12-27] MEDS: Amitriptyline HCl 25 MG TAB PO SCH (20:36)
[2020-12-27] MEDS ORDERED: Lidocaine Viscous Sol 2% 15 ml UD Cup SSP PRN (21:00)
[2020-12-28] MEDS: Piperacillin/Tazobactam 3.375 GM in Sodium Chloride 0.9% 100 ML IVPB SCH ×3 (00:40→17:52)
[2020-12-28] MEDS: Vancomycin 1 GM in Premix Bag 1 BAG IVPB SCH ×3 (03:29→15:39)
[2020-12-28 04:20] LABS: Anion Gap 12 mmol/L (10-20); BUN (Urea Nitrogen) 19 mg/dL (8.4-25.7); Calc. Creatinine Clearance 68 mL/min (70-130); Calcium 8.4 mg/dL (7.8-10.44); Carbon Dioxide 27 mmol/L (23-31); Chloride 102 mmol/L (98-107); Glucose 112 mg/dL (80-115); Potassium 3.7 mmol/L (3.5-5.1); Sodium 137 mmol/L (136-145)
[2020-12-28 04:59] LABS: Band 16 % (5-11); Eosinophils 1 % (0-10); Hemoglobin 7.4 g/dL (14.0-18.0); Lymphocytes 5 % (21-51); MDiff Complete? YES; Mean Corpuscular HGB CONC 34.3 g/dL (32.0-36.0); Mean Corpuscular Hemoglobin 31.4 pg (27.0-31.0); Mean Corpuscular Volume 91.6 fL (78.0-98.0); Mean Platelet Volume 6.2 fL (7.4-10.4); Metamyelocyte 3 % (0-0); Monocytes 16 % (0-10); Neutrophil 59 % (42-75); Platelet Count 104 thou/uL (130-400); Platelet Morphology Comment Appears Decreased; RBC Distribution Width 13.8 % (11.5-14.5); RBC Morphology Normal; Red Blood Cell (RBC) Count 2.37 mill/uL (4.70-6.10); White Blood Cell (WBC) Count 3.4 thou/uL (4.8-10.8)
[2020-12-28] MEDS: Gabapentin 300 MG CAP PO SCH ×2 (08:00→21:58)
[2020-12-28] MEDS: Buprenorphine Hcl [Belbuca] 300 MCG Film TOP SCH ×2 (08:02→22:02)
[2020-12-28] MEDS: Enoxaparin Sodium 40 MG/0.4 ML SYRINGE SC SCH (08:11)
[2020-12-28] MEDS: Lorazepam 2 MG/ML VIAL SLOW IVP PRN (13:23)
[2020-12-28] MEDS: Sodium Chloride 0.9% 1,000 ML IV SCH (17:52)
[2020-12-28] MEDS: Amitriptyline HCl 25 MG TAB PO SCH (21:55)
[2020-12-28] MEDS: Atorvastatin Calcium 10 MG TAB PO SCH (21:55)
[2020-12-29] MEDS: Lorazepam 2 MG/ML VIAL SLOW IVP PRN (01:37)
[2020-12-29] MEDS ORDERED: hydrOXYzine 25 MG TAB PO SCH (03:15)
[2020-12-29 04:39] LABS: #Lymphocytes 0.3 thou/uL (1.20-3.40); #Monocytes 0.5 thou/uL (0.11-0.59); #Neutrophils 3.5 thou/uL (1.40-6.50); %Eosinophils 0.7 % (0.0-10.0); %Neutrophils 80.3 % (42.0-75.0); Hemoglobin 7.4 g/dL (14.0-18.0); Mean Corpuscular HGB CONC 32.6 g/dL (32.0-36.0); Mean Corpuscular Hemoglobin 29.5 pg (27.0-31.0); Mean Corpuscular Volume 90.4 fL (78.0-98.0); Mean Platelet Volume 6.2 fL (7.4-10.4); Platelet Count 142 thou/uL (130-400); RBC Distribution Width 13.8 % (11.5-14.5); Red Blood Cell (RBC) Count 2.52 mill/uL (4.70-6.10); White Blood Cell (WBC) Count 4.3 thou/uL (4.8-10.8)
[2020-12-29] MEDS: Sodium Chloride 0.9% 1,000 ML IV SCH ×2 (05:10→09:00)
[2020-12-29] MEDS: Piperacillin/Tazobactam 3.375 GM in Sodium Chloride 0.9% 100 ML IVPB SCH ×2 (05:10→14:18)
[2020-12-29 05:13] LABS: Anion Gap 14 mmol/L (10-20); BUN (Urea Nitrogen) 21 mg/dL (8.4-25.7); Calc. Creatinine Clearance 65 mL/min (70-130); Calcium 8.3 mg/dL (7.8-10.44); Carbon Dioxide 24 mmol/L (23-31); Chloride 103 mmol/L (98-107); Glucose 83 mg/dL (80-115); Potassium 3.5 mmol/L (3.5-5.1); Sodium 137 mmol/L (136-145)
[2020-12-29] MEDS: Enoxaparin Sodium 40 MG/0.4 ML SYRINGE SC SCH (09:12)
[2020-12-29] MEDS: Gabapentin 300 MG CAP PO SCH ×2 (09:12→20:21)
[2020-12-29] MEDS: Vancomycin 1 GM in Premix Bag 1 BAG IVPB SCH ×2 (11:32→18:38)
[2020-12-29] MEDS ORDERED: Haloperidol Lactate 5 MG/ML VIAL IM PRN (11:59)
[2020-12-29] MEDS: Buprenorphine Hcl [Belbuca] 300 MCG Film TOP SCH (12:09)
[2020-12-29] MEDS ORDERED: Polyethylene Glycol 3350 17 GM Packet PO PRN (16:23)
[2020-12-29] MEDS: Buprenorphine Hcl [Belbuca] 150 MCG Film TOP PRN (20:20)
[2020-12-29] MEDS: Amitriptyline HCl 25 MG TAB PO SCH (20:21)
[2020-12-29] MEDS: Atorvastatin Calcium 10 MG TAB PO SCH (20:21)
[2020-12-30] MEDS: Sodium Chloride 0.9% 1,000 ML IV SCH ×2 (01:45→04:04)
[2020-12-30] MEDS: Gabapentin 300 MG CAP PO SCH ×2 (08:11→20:04)
[2020-12-30 08:41] LABS: #Lymphocytes 0.4 thou/uL (1.20-3.40); #Monocytes 0.5 thou/uL (0.11-0.59); %Basophils 0.1 % (0.0-1.0); %Eosinophils 0.8 % (0.0-10.0); %Lymphocytes 7.3 % (21.0-51.0); %Monocytes 9.3 % (0.0-10.0); %Neutrophils 82.5 % (42.0-75.0); Hemoglobin 7.2 g/dL (14.0-18.0); Mean Corpuscular HGB CONC 34.4 g/dL (32.0-36.0); Mean Corpuscular Hemoglobin 31.5 pg (27.0-31.0); Mean Corpuscular Volume 91.3 fL (78.0-98.0); Mean Platelet Volume 6.3 fL (7.4-10.4); Platelet Count 158 thou/uL (130-400); RBC Distribution Width 13.9 % (11.5-14.5); White Blood Cell (WBC) Count 4.9 thou/uL (4.8-10.8)
[2020-12-30 09:17] LABS: Anion Gap 15 mmol/L (10-20); BUN (Urea Nitrogen) 22 mg/dL (8.4-25.7); Calc. Creatinine Clearance 70 mL/min (70-130); Calcium 8.2 mg/dL (7.8-10.44); Carbon Dioxide 25 mmol/L (23-31); Chloride 104 mmol/L (98-107); Glucose 84 mg/dL (80-115); Potassium 3.5 mmol/L (3.5-5.1); Sodium 140 mmol/L (136-145)
[2020-12-30 13:02] LABS: CSF, Glucose 51 mg/dl (40-70)
[2020-12-30 13:33] LABS: CSF, Protein 336 mg/dL (15-40)
[2020-12-30] MEDS: Enoxaparin Sodium 40 MG/0.4 ML SYRINGE SC SCH (13:55)
[2020-12-30 14:16] LABS: CSF Source CSF
[2020-12-30 14:17] LABS: Clarity Cloudy/Turbid (Clear); Tube # 2
[2020-12-30 14:42] LABS: Cell Count Non Hematic 3 %; Lymphocytes 10 %; Segmented Neutrophils 87 %
[2020-12-30] MEDS ORDERED: BUTRANS 20 MCG/HR TOP SCH (15:00)
[2020-12-30] MEDS: Atorvastatin Calcium 10 MG TAB PO SCH (20:04)
[2020-12-30] MEDS: Amitriptyline HCl 25 MG TAB PO SCH (20:05)
[2020-12-31] MEDS: Sodium Chloride 0.9% 1,000 ML IV SCH ×3 (02:01→15:49)
[2020-12-31 04:58] LABS: #Lymphocytes 0.3 thou/uL (1.20-3.40); #Monocytes 0.6 thou/uL (0.11-0.59); #Neutrophils 3.7 thou/uL (1.40-6.50); %Lymphocytes 7.2 % (21.0-51.0); %Monocytes 11.9 % (0.0-10.0); %Neutrophils 79.9 % (42.0-75.0); Mean Corpuscular HGB CONC 33.5 g/dL (32.0-36.0); Mean Corpuscular Hemoglobin 30.9 pg (27.0-31.0); Mean Corpuscular Volume 92.3 fL (78.0-98.0); Mean Platelet Volume 5.9 fL (7.4-10.4); Platelet Count 145 thou/uL (130-400); RBC Distribution Width 14.2 % (11.5-14.5); Red Blood Cell (RBC) Count 2.26 mill/uL (4.70-6.10); White Blood Cell (WBC) Count 4.6 thou/uL (4.8-10.8)
[2020-12-31 05:21] LABS: Anion Gap 11 mmol/L (10-20); BUN (Urea Nitrogen) 21 mg/dL (8.4-25.7); Calc. Creatinine Clearance 78 mL/min (70-130); Calcium 8.2 mg/dL (7.8-10.44); Carbon Dioxide 26 mmol/L (23-31); Chloride 106 mmol/L (98-107); Glucose 107 mg/dL (80-115); Potassium 3.3 mmol/L (3.5-5.1); Sodium 140 mmol/L (136-145)
[2020-12-31 08:27] VITALS: TEMP 98.3
[2020-12-31] MEDS ORDERED: VANCOMYCIN 1.75 GM/350 ML BAG 1.75 GM in Premix Bag 1 BAG IVPB SCH (10:00)
[2020-12-31] MEDS: Enoxaparin Sodium 40 MG/0.4 ML SYRINGE SC SCH (10:34)
[2020-12-31] MEDS: Gabapentin 300 MG CAP PO SCH (10:34)
[2020-12-31 15:26] VITALS: BP 133/78
[2020-12-31] MEDS ORDERED: Potassium Chloride 20 MEQ TAB PO SCH (16:45)
== END 2020-12-31 17:59 | disposition home or self-care (01) | DRG 640 ==
LOC: ERS 16:54 → 2NO 18:26 → ONC 12-25 21:07
PROVIDERS: ADMIT Internal Medicine; ATTEND Internal Medicine
PROC: 009U3ZX Drainage of Spinal Canal, Percutaneous Approach, Diagnostic (ICD-10-PCS; principal; 2020-12-30)
PROC: B01B1ZZ Fluoroscopy of Spinal Cord using Low Osmolar Contrast (ICD-10-PCS; 2020-12-30)
DX: E83.52 Hypercalcemia (principal); G93.41 Metabolic encephalopathy; M48.56XA Collapsed vertebra, not elsewhere classified, lumbar region, initial encounter for fracture; N17.9 Acute kidney failure, unspecified; C90.00 Multiple myeloma not having achieved remission; C79.51 Secondary malignant neoplasm of bone; C78.7 Secondary malignant neoplasm of liver and intrahepatic bile duct; Z20.822 Contact with and (suspected) exposure to COVID-19; R29.6 Repeated falls; R26.9 Unspecified abnormalities of gait and mobility; G89.29 Other chronic pain; E78.5 Hyperlipidemia, unspecified; I10 Essential (primary) hypertension; F32.A Depression, unspecified; F17.220 Nicotine dependence, chewing tobacco, uncomplicated; E78.00 Pure hypercholesterolemia, unspecified; L40.50 Arthropathic psoriasis, unspecified; E87.6 Hypokalemia; E75.22 Gaucher disease; Z79.899 Other long term (current) drug therapy; Z83.3 Family history of diabetes mellitus; Z82.3 Family history of stroke; Z80.0 Family history of malignant neoplasm of digestive organs; Z83.2 Family history of diseases of the blood and blood-forming organs and certain disorders involving the immune mechanism; Z90.49 Acquired absence of other specified parts of digestive tract
CPT/HCPCS: 36415; 62270; 70553; 71045; 71275; 72141; 72146; 72148; 72170; 80048; 80053; 80202; 81003; 82945; 83605; 83880; 84157; 84484; 85025; 85060; 87040; 87070; 87077; 87086; 87186; 87205; 88112; 89051; 96365; 96367; J1650; J2060; J2543; J3370; J3490; J7030; J7050; Q9967; U0003; U0005

== ENCOUNTER 2021-01-21 16:36 | Emergency (ER) | payer MEDICARE ==
[2021-01-21 17:34] LABS: #Lymphocytes 0.7 thou/uL (1.20-3.40); #Monocytes 0.6 thou/uL (0.11-0.59); %Basophils 0.2 % (0.0-1.0); %Eosinophils 0.6 % (0.0-10.0); %Lymphocytes 10.1 % (21.0-51.0); %Monocytes 7.7 % (0.0-10.0); %Neutrophils 81.5 % (42.0-75.0); Hemoglobin 8.3 g/dL (14.0-18.0); Mean Corpuscular HGB CONC 31.7 g/dL (32.0-36.0); Mean Corpuscular Hemoglobin 29.9 pg (27.0-31.0); Mean Corpuscular Volume 94.2 fL (78.0-98.0); Mean Platelet Volume 6.4 fL (7.4-10.4); Platelet Count 237 thou/uL (130-400); RBC Distribution Width 15.2 % (11.5-14.5); Red Blood Cell (RBC) Count 2.76 mill/uL (4.70-6.10); White Blood Cell (WBC) Count 7.3 thou/uL (4.8-10.8)
[2021-01-21 18:11] LABS: ALT (SGPT) 55 U/L (8-55); AST (SGOT) 75 U/L (5-34); Albumin 3.1 g/dL (3.4-4.8); Alkaline Phosphatase 753 U/L (40-110); Anion Gap 16 mmol/L (10-20); BUN (Urea Nitrogen) 54 mg/dL (8.4-25.7); Bilirubin, Total 0.4 mg/dL (0.2-1.2); Calc. Creatinine Clearance 0 mL/min (70-130); Calcium 9.2 mg/dL (7.8-10.44); Carbon Dioxide 18 mmol/L (23-31); Chloride 102 mmol/L (98-107); Globulin 4.1 g/dL (2.4-3.5); Glucose 119 mg/dL (80-115); Potassium 4.8 mmol/L (3.5-5.1); Protein, Total 7.2 g/dL (5.8-8.1); Sodium 131 mmol/L (136-145)
== END 2021-01-21 20:45 | disposition home or self-care (01) ==
LOC: ERS 16:36
DX: E86.0 Dehydration (principal); E78.5 Hyperlipidemia, unspecified; I10 Essential (primary) hypertension; Z79.899 Other long term (current) drug therapy
CPT/HCPCS: 36415; 82310; 85025; 86850; 86900; 86901; 93005

== ENCOUNTER 2021-01-22 10:03 | Day surgery (SDC) | payer MEDICARE ==
[2021-01-22] MEDS ORDERED: Sodium Chloride 0.9% 10 ML ONE (10:44)
[2021-01-22] MEDS ORDERED: diphenhydrAMINE 25 MG CAP ONE (10:55)
[2021-01-22] MEDS ORDERED: Acetaminophen 500 MG TAB ONE (10:56)
[2021-01-22 15:21] VITALS: BP 100/62; TEMP 98.1
== END 2021-01-22 15:22 | disposition home or self-care (01) ==
LOC: ONC/OP 10:03
PROVIDERS: ATTEND Internal Medicine Hematology & Oncology
PROC: 30233N1 Transfusion of Nonautologous Red Blood Cells into Peripheral Vein, Percutaneous Approach (ICD-10-PCS; principal; 2021-01-22)
DX: D64.9 Anemia, unspecified (principal); D69.6 Thrombocytopenia, unspecified
CPT/HCPCS: 36415; 36430; 86850; 86900; 86901; P9016

== ENCOUNTER 2021-01-23 07:35 | Outpatient (CLI) | payer MEDICARE | END 2021-01-23 07:36 | disposition home or self-care (01) | LOC: PET 07:35 | PROVIDERS: ATTEND Internal Medicine Hematology & Oncology | DX: C43.59 Malignant melanoma of other part of trunk (principal); C79.51 Secondary malignant neoplasm of bone; R91.8 Other nonspecific abnormal finding of lung field | CPT/HCPCS: 78816; A9552 ==

== ENCOUNTER 2021-01-25 12:19 | Inpatient (IN) | payer MEDICARE ==
[~2021-01-25 12:19] MED LIST changes: +Iopamidol-370 76% 500 ML 1 ML ONE; -Magnevist 469MG/ML 20 ML VIAL ONE
[2021-01-25] MEDS ORDERED: cefTRIAXone\\ROCEPHIN 2 GM VIAL ONE (13:05)
[2021-01-25 13:09] LABS: #Lymphocytes 0.4 thou/uL (1.20-3.40); #Monocytes 0.1 thou/uL (0.11-0.59); #Neutrophils 4.3 thou/uL (1.40-6.50); %Basophils 0.2 % (0.0-1.0); %Eosinophils 0.8 % (0.0-10.0); %Monocytes 2.9 % (0.0-10.0); Hemoglobin 10.2 g/dL (14.0-18.0); Mean Corpuscular HGB CONC 34.2 g/dL (32.0-36.0); Mean Corpuscular Hemoglobin 29.7 pg (27.0-31.0); Mean Corpuscular Volume 86.9 fL (78.0-98.0); Mean Platelet Volume 6.2 fL (7.4-10.4); Platelet Count 200 thou/uL (130-400); RBC Distribution Width 14.8 % (11.5-14.5); Red Blood Cell (RBC) Count 3.42 mill/uL (4.70-6.10); White Blood Cell (WBC) Count 4.9 thou/uL (4.8-10.8)
[2021-01-25] MEDS ORDERED: Vancomycin 1.5 GRAM/300 ML BAG 1.5 GM in Premix Bag 1 BAG IVPB SCH (13:15)
[2021-01-25] MEDS ORDERED: Sodium Chloride 0.9% 1,000 ML IV SCH (13:15)
[2021-01-25] MEDS ORDERED: cefTRIAXone\\ROCEPHIN 2 GM in Sodium Chloride 0.9% 100 ML IVPB SCH (13:15)
[2021-01-25 13:19] LABS: PTT 35.7 sec (22.9-36.1)
[2021-01-25 13:20] LABS: INR-International Normal Ratio 1.1; Prothrombin Time 14.3 sec (12.0-14.7)
[2021-01-25 13:32] LABS: ALT (SGPT) 41 U/L (8-55); AST (SGOT) 55 U/L (5-34); Albumin 3.1 g/dL (3.4-4.8); Alkaline Phosphatase 607 U/L (40-110); Anion Gap 15 mmol/L (10-20); BUN (Urea Nitrogen) 31 mg/dL (8.4-25.7); Bilirubin, Total 0.6 mg/dL (0.2-1.2); Calc. Creatinine Clearance 81 mL/min (70-130); Calcium 6.7 mg/dL (7.8-10.44); Carbon Dioxide 19 mmol/L (23-31); Chloride 101 mmol/L (98-107); Globulin 3.2 g/dL (2.4-3.5); Glucose 98 mg/dL (80-115); Potassium 4.5 mmol/L (3.5-5.1); Protein, Total 6.3 g/dL (5.8-8.1); Sodium 130 mmol/L (136-145)
[2021-01-25] MEDS ORDERED: Dexamethasone 10 MG/ML VIAL ONE (14:41)
[2021-01-25 15:36] LABS: Bilirubin Negative (Negative); Blood, Urine Negative (Negative); Clarity Clear (Clear); Glucose, Urine (Dipstick) Normal (Negative); Ketone, Urine Negative (Negative); Leukocyte Negative Leu/uL (Negative); Nitrite Negative (Negative); Protein, Urine (Dipstick) 20 mg/dL (Neg-Trace); Specific Gravity, Urine 1.023 (1.002-1.036); Urobilinogen Normal mg/dL (Less than 2)
[2021-01-25] MEDS ORDERED: Acetaminophen 325 MG TAB PO PRN (17:51)
[2021-01-25] MEDS: Sodium Chloride 0.9% 1,000 ML IV SCH (19:41)
[2021-01-25 20:23] VITALS: BMI 28.1
[2021-01-25] MEDS ORDERED: Dexamethasone 6 MG in Sodium Chloride 0.9% 50 ML IVPB SCH (21:00)
[2021-01-26] MEDS: Sodium Chloride 0.9% 1,000 ML IV SCH ×2 (05:53→16:15)
[2021-01-26 07:00] LABS: #Lymphocytes 0.4 thou/uL (1.20-3.40); #Monocytes 0.2 thou/uL (0.11-0.59); #Neutrophils 3.8 thou/uL (1.40-6.50); %Basophils 0.1 % (0.0-1.0); %Eosinophils 1.1 % (0.0-10.0); %Lymphocytes 9.2 % (21.0-51.0); %Monocytes 4.4 % (0.0-10.0); %Neutrophils 85.3 % (42.0-75.0); Hemoglobin 9.2 g/dL (14.0-18.0); Mean Corpuscular HGB CONC 34.5 g/dL (32.0-36.0); Mean Corpuscular Hemoglobin 30.4 pg (27.0-31.0); Mean Corpuscular Volume 87.9 fL (78.0-98.0); Mean Platelet Volume 6.3 fL (7.4-10.4); Platelet Count 186 thou/uL (130-400); RBC Distribution Width 14.8 % (11.5-14.5); Red Blood Cell (RBC) Count 3.03 mill/uL (4.70-6.10); White Blood Cell (WBC) Count 4.4 thou/uL (4.8-10.8)
[2021-01-26 07:24] LABS: Anion Gap 12 mmol/L (10-20); BUN (Urea Nitrogen) 23 mg/dL (8.4-25.7); Calc. Creatinine Clearance 93 mL/min (70-130); Calcium 6.5 mg/dL (7.8-10.44); Carbon Dioxide 19 mmol/L (23-31); Chloride 106 mmol/L (98-107); Glucose 95 mg/dL (80-115); Sodium 133 mmol/L (136-145)
[2021-01-26] MEDS: Enoxaparin Sodium 40 MG/0.4 ML SYRINGE SC SCH (08:08)
[2021-01-26] MEDS ORDERED: Gabapentin 300 MG CAP PO PRN (08:16)
[2021-01-26] MEDS ORDERED: Polyethylene Glycol 3350 17 GM Packet PO PRN (08:16)
[2021-01-26] MEDS ORDERED: BUPRENORPHINE 20 MCG TD SCH (08:30)
[2021-01-26] MEDS ORDERED: DABRAFENIB MESYLATE 75 MG PO SCH (09:00)
[2021-01-26] MEDS ORDERED: TRAMETINIB DIMETHYL SULFOXIDE 2 MG PO SCH (09:00)
[2021-01-26] MEDS ORDERED: Dexamethasone 6 MG in Sodium Chloride 0.9% 50 ML IVPB SCH (15:00)
[2021-01-26] MEDS: Trametinib Dimethyl Sulfoxide [Mekinist] 2 MG Tablet PO SCH (16:07)
[2021-01-26] MEDS: Dabrafenib Mesylate [Tafinlar] 75 MG Capsule PO SCH ×2 (16:07→21:00)
[2021-01-26] MEDS: Dexamethasone 4 mg/ml Vial SLOW IVP SCH (16:16)
[2021-01-26] MEDS ORDERED: Amitriptyline HCl 25 MG TAB PO SCH ×2 (21:00)
[2021-01-26] MEDS ORDERED: Mirtazapine 15 MG Soltab PO SCH (21:00)
[2021-01-27] MEDS: Sodium Chloride 0.9% 1,000 ML IV SCH ×2 (01:00→10:28)
[2021-01-27 07:55] VITALS: BP 96/64; TEMP 97.4
[2021-01-27] MEDS ORDERED: Buprenorphine [Butrans] 20 MCG Patch.Tdwk TOP SCH (09:00)
[2021-01-27] MEDS: Enoxaparin Sodium 40 MG/0.4 ML SYRINGE SC SCH (09:09)
[2021-01-27] MEDS: Dabrafenib Mesylate [Tafinlar] 75 MG Capsule PO SCH (09:13)
[2021-01-27] MEDS: Trametinib Dimethyl Sulfoxide [Mekinist] 2 MG Tablet PO SCH (09:13)
[2021-01-27] MEDS: Dexamethasone 4 mg/ml Vial SLOW IVP SCH (16:07)
== END 2021-01-27 17:25 | disposition home health service (06) | DRG 314 ==
LOC: ERS 12:19 → T4-B 15:54
PROVIDERS: ADMIT Internal Medicine; ATTEND Internal Medicine
PROC: 8E0ZXY6 Isolation (ICD-10-PCS; principal; 2021-01-25)
PROC: 3E0333Z Introduction of Anti-inflammatory into Peripheral Vein, Percutaneous Approach (ICD-10-PCS; 2021-01-25)
DX: I95.9 Hypotension, unspecified (principal); U07.1 COVID-19; J12.82 Pneumonia due to coronavirus disease 2019; C79.51 Secondary malignant neoplasm of bone; C78.7 Secondary malignant neoplasm of liver and intrahepatic bile duct; I10 Essential (primary) hypertension; E78.5 Hyperlipidemia, unspecified; C43.9 Malignant melanoma of skin, unspecified; R62.51 Failure to thrive (child); F32.A Depression, unspecified; F17.220 Nicotine dependence, chewing tobacco, uncomplicated; Z90.49 Acquired absence of other specified parts of digestive tract; Z98.890 Other specified postprocedural states; Z79.899 Other long term (current) drug therapy
CPT/HCPCS: 36415; 71275; 78816; 80048; 80053; 81003; 83605; 83880; 84484; 85025; 85610; 85730; 86140; 87040; 87086; 93005; 94760; A9552; J0696; J1100; J1650; J3370; J7050; Q9967; U0003; U0005

== ENCOUNTER 2021-02-20 08:39 | Day surgery (SDC) | payer MEDICARE ==
[2021-02-20] MEDS ORDERED: Sodium Chloride 0.9% 10 ML ONE ×2 (08:49→09:55)
[2021-02-20] MEDS ORDERED: diphenhydrAMINE 25 MG CAP PO SCH (09:30)
[2021-02-20] MEDS ORDERED: Acetaminophen 500 MG TAB PO SCH (09:30)
[2021-02-20] MEDS ORDERED: diphenhydrAMINE 25 MG CAP ONE (09:55)
[2021-02-20] MEDS ORDERED: Acetaminophen 500 MG TAB ONE (09:55)
[2021-02-20 16:35] VITALS: BP 143/79; TEMP 97.8
== END 2021-02-20 16:36 | disposition home or self-care (01) ==
LOC: ONC/OP 08:39
PROVIDERS: ATTEND Internal Medicine Hematology & Oncology
PROC: 30233N1 Transfusion of Nonautologous Red Blood Cells into Peripheral Vein, Percutaneous Approach (ICD-10-PCS; principal; 2021-02-20)
DX: D64.9 Anemia, unspecified (principal); D69.6 Thrombocytopenia, unspecified
CPT/HCPCS: 36430; 86850; 86900; 86901; P9016

== ENCOUNTER 2021-02-23 10:42 | Outpatient (CLI) | payer MEDICARE | END 2021-02-23 10:43 | disposition home or self-care (01) | LOC: BICRAD 10:42 | PROVIDERS: ATTEND Internal Medicine Hematology & Oncology | DX: M25.551 Pain in right hip (principal) ==

== ENCOUNTER 2021-03-27 08:00 | Outpatient (CLI) | payer MEDICARE | END 2021-03-27 08:01 | disposition home or self-care (01) | LOC: PET 08:00 | PROVIDERS: ATTEND Internal Medicine Hematology & Oncology | DX: C79.51 Secondary malignant neoplasm of bone (principal); C43.59 Malignant melanoma of other part of trunk | CPT/HCPCS: 78816; A9552 ==

== ENCOUNTER 2021-06-18 09:30 | Outpatient (CLI) | payer MEDICARE | END 2021-06-18 09:31 | disposition home or self-care (01) | LOC: PET 09:30 | PROVIDERS: ATTEND Internal Medicine Hematology & Oncology | DX: C79.51 Secondary malignant neoplasm of bone (principal); C43.59 Malignant melanoma of other part of trunk; C78.7 Secondary malignant neoplasm of liver and intrahepatic bile duct; E83.52 Hypercalcemia | CPT/HCPCS: 78816; A9552 ==

== ENCOUNTER 2021-09-11 08:57 | Inpatient (IN) | payer MEDICARE ==
[2021-09-11] MEDS ORDERED: Ondansetron PF 4 MG/2 ML Vial ONE (09:43)
[2021-09-11] MEDS ORDERED: Morphine 4 MG/ML VIAL ONE ×2 (09:43→12:33)
[2021-09-11 10:02] LABS: #Eosinphils 0.1 thou/uL (0.0-0.7); #Lymphocytes 0.3 thou/uL (1.20-3.40); #Monocytes 0.6 thou/uL (0.11-0.59); #Neutrophils 7.7 thou/uL (1.40-6.50); %Basophils 0.1 % (0.0-1.0); %Eosinophils 1.3 % (0.0-10.0); %Lymphocytes 3.7 % (21.0-51.0); %Monocytes 6.7 % (0.0-10.0); %Neutrophils 88.2 % (42.0-75.0); Hemoglobin 8.1 g/dL (14.0-18.0); Mean Corpuscular HGB CONC 31.5 g/dL (32.0-36.0); Mean Corpuscular Hemoglobin 29.6 pg (27.0-31.0); Mean Corpuscular Volume 94.1 fL (78.0-98.0); Mean Platelet Volume 6.8 fL (7.4-10.4); Platelet Count 200 thou/uL (130-400); RBC Distribution Width 16.4 % (11.5-14.5); Red Blood Cell (RBC) Count 2.73 mill/uL (4.70-6.10); White Blood Cell (WBC) Count 8.8 thou/uL (4.8-10.8)
[2021-09-11 10:23] LABS: ALT (SGPT) 13 U/L (8-55); AST (SGOT) 43 U/L (5-34); Albumin 2.9 g/dL (3.4-4.8); Alkaline Phosphatase 467 U/L (40-110); Anion Gap 12 mmol/L (10-20); BUN (Urea Nitrogen) 16 mg/dL (8.4-25.7); Bilirubin, Total 0.4 mg/dL (0.2-1.2); Calc. Creatinine Clearance 0 mL/min (70-130); Calcium 9.4 mg/dL (7.8-10.44); Carbon Dioxide 27 mmol/L (23-31); Chloride 102 mmol/L (98-107); Estimated GFR 99; Glucose 100 mg/dL (80-115); Lipase 120 U/L (8-78); Potassium 4.1 mmol/L (3.5-5.1); Protein, Total 5.9 g/dL (5.8-8.1); Sodium 137 mmol/L (136-145)
[2021-09-11] MEDS ORDERED: Cefepime 2 GM VIAL ONE (10:33)
[2021-09-11] MEDS ORDERED: Vancomycin 1 GM/200 ML BAG ONE (10:33)
[2021-09-11] MEDS ORDERED: Aspirin Chewable 81 MG TAB ONE (11:14)
[2021-09-11] MEDS ORDERED: Ondansetron ODT 4 MG TAB PO PRN (12:19)
[2021-09-11] MEDS ORDERED: Ondansetron PF 4 MG/2 ML Vial IVP PRN (12:19)
[2021-09-11 12:53] LABS: Bilirubin Negative (Negative); Blood, Urine Negative (Negative); Clarity Clear (Clear); Glucose, Urine (Dipstick) Normal (Negative); Ketone, Urine Negative (Negative); Leukocyte Negative Leu/uL (Negative); Nitrite Negative (Negative); Protein, Urine (Dipstick) 10 mg/dL (Neg-Trace); RBC/HPF 0-3 HPF (0-3); Squamous Epithelial None Seen HPF (0-3); Urobilinogen Normal mg/dL (Less than 2); WBC/HPF 0-3 HPF (0-3); pH, Urine 5.5 (5.0-9.0)
[2021-09-11 12:55] LABS: Bacteria/HPF 1+ HPF (None Seen)
[2021-09-11 13:45] VITALS: BMI 25.8
[2021-09-11] MEDS: Acetaminophen 325 MG TAB PO PRN (13:50)
[2021-09-11] MEDS: Sodium Chloride 0.9% 1,000 ML IV SCH (13:50)
[2021-09-11] MEDS ORDERED: Azithromycin 500 MG in Sodium Chloride 0.9% 250 ML 250 ML IVPB SCH (14:00)
[2021-09-11 14:35] LABS: SARS-CoV-2 NAA Rapid Test Not Detected (NotDetected)
[2021-09-11] MEDS ORDERED: Iopamidol-370 76% 500 ML 1 ML ONE (15:25)
[2021-09-11] MEDS: cefTRIAXone\\ROCEPHIN 1 GM in Sodium Chloride 0.9% 100 ML IVPB SCH (15:36)
[2021-09-11] MEDS: Azithromycin 500 MG in Sodium Chloride 0.9% 250 ML 250 ML IVPB SCH (16:30)
[2021-09-11] MEDS ORDERED: fentaNYL 50 mcg/hour Patch TD SCH (17:00)
[2021-09-11] MEDS: Morphine 2 MG/ML VIAL SLOW IVP PRN (17:56)
[2021-09-11] MEDS: Enoxaparin Sodium 40 MG/0.4 ML SYRINGE SC SCH (20:28)
[2021-09-12] MEDS: Sodium Chloride 0.9% 1,000 ML IV SCH ×2 (00:30→08:33)
[2021-09-12] MEDS: Morphine 2 MG/ML VIAL SLOW IVP PRN ×4 (02:33→22:46)
[2021-09-12 04:43] LABS: #Basophils 0.1 thou/uL (0.0-0.2); #Eosinphils 0.1 thou/uL (0.0-0.7); #Lymphocytes 0.2 thou/uL (1.20-3.40); #Monocytes 0.5 thou/uL (0.11-0.59); #Neutrophils 7.4 thou/uL (1.40-6.50); %Basophils 1.1 % (0.0-1.0); %Eosinophils 1.3 % (0.0-10.0); %Lymphocytes 2.7 % (21.0-51.0); %Monocytes 6.5 % (0.0-10.0); %Neutrophils 88.4 % (42.0-75.0); Mean Corpuscular Hemoglobin 29.2 pg (27.0-31.0); Platelet Count 173 thou/uL (130-400); RBC Distribution Width 16.7 % (11.5-14.5); Red Blood Cell (RBC) Count 2.41 mill/uL (4.70-6.10); White Blood Cell (WBC) Count 8.4 thou/uL (4.8-10.8)
[2021-09-12 05:10] LABS: Anion Gap 13 mmol/L (10-20); BUN (Urea Nitrogen) 14 mg/dL (8.4-25.7); Calc. Creatinine Clearance 108 mL/min (70-130); Calcium 9.4 mg/dL (7.8-10.44); Carbon Dioxide 23 mmol/L (23-31); Chloride 105 mmol/L (98-107); Estimated GFR 101; Glucose 79 mg/dL (80-115); Potassium 3.9 mmol/L (3.5-5.1); Sodium 137 mmol/L (136-145)
[2021-09-12] MEDS: Senokot S 8.6-50 MG TAB PO PRN ×2 (08:28→19:56)
[2021-09-12] MEDS ORDERED: Lisinopril/Hydrochlorothiazide 20/25 mg Tablet PO SCH (12:15)
[2021-09-12] MEDS: Acetaminophen 325 MG TAB PO PRN (13:02)
[2021-09-12] MEDS: cefTRIAXone\\ROCEPHIN 1 GM in Sodium Chloride 0.9% 100 ML IVPB SCH (14:31)
[2021-09-12] MEDS: Azithromycin 500 MG in Sodium Chloride 0.9% 250 ML 250 ML IVPB SCH (16:26)
[2021-09-12] MEDS: Enoxaparin Sodium 40 MG/0.4 ML SYRINGE SC SCH (19:54)
[2021-09-13] MEDS: Morphine 2 MG/ML VIAL SLOW IVP PRN ×2 (05:07→12:08)
[2021-09-13 05:56] LABS: #Eosinphils 0.1 thou/uL (0.0-0.7); #Lymphocytes 0.3 thou/uL (1.20-3.40); #Monocytes 0.5 thou/uL (0.11-0.59); #Neutrophils 8.1 thou/uL (1.40-6.50); %Eosinophils 0.9 % (0.0-10.0); %Lymphocytes 3.2 % (21.0-51.0); %Monocytes 5.5 % (0.0-10.0); %Neutrophils 90.4 % (42.0-75.0); Mean Corpuscular HGB CONC 31.9 g/dL (32.0-36.0); Mean Corpuscular Hemoglobin 29.4 pg (27.0-31.0); Mean Corpuscular Volume 92.2 fL (78.0-98.0); Platelet Count 159 thou/uL (130-400); RBC Distribution Width 16.7 % (11.5-14.5); Red Blood Cell (RBC) Count 2.39 mill/uL (4.70-6.10)
[2021-09-13 06:08] LABS: Lactic Acid 1.8 mmol/L (0.5-2.2)
[2021-09-13 06:14] LABS: ALT (SGPT) 14 U/L (8-55); AST (SGOT) 45 U/L (5-34); Albumin 2.5 g/dL (3.4-4.8); Alkaline Phosphatase 376 U/L (40-110); Anion Gap 13 mmol/L (10-20); BUN (Urea Nitrogen) 13 mg/dL (8.4-25.7); Bilirubin, Total 0.4 mg/dL (0.2-1.2); Calc. Creatinine Clearance 110 mL/min (70-130); Carbon Dioxide 24 mmol/L (23-31); Chloride 103 mmol/L (98-107); Estimated GFR 101; Globulin 3.3 g/dL (2.4-3.5); Glucose 78 mg/dL (80-115); Potassium 3.7 mmol/L (3.5-5.1); Protein, Total 5.8 g/dL (5.8-8.1); Sodium 136 mmol/L (136-145)
[2021-09-13 08:23] VITALS: BP 145/87; TEMP 98
[2021-09-13] MEDS ORDERED: Lisinopril/Hydrochlorothiazide 20/25 mg Tablet PO SCH (09:00)
[2021-09-13] MEDS: Acetaminophen 325 MG TAB PO PRN (09:17)
[2021-09-13] MEDS: Senokot S 8.6-50 MG TAB PO PRN (09:20)
== END 2021-09-13 15:52 | disposition home or self-care (01) | DRG 180 ==
LOC: ERS 08:57 → MSONC 11:30
PROVIDERS: ADMIT Family Medicine; ATTEND Family Medicine
DX: C78.02 Secondary malignant neoplasm of left lung (principal); A41.9 Sepsis, unspecified organism; C78.7 Secondary malignant neoplasm of liver and intrahepatic bile duct; C79.51 Secondary malignant neoplasm of bone; J91.0 Malignant pleural effusion; D84.821 Immunodeficiency due to drugs; E87.2 Acidosis; C78.01 Secondary malignant neoplasm of right lung; C43.9 Malignant melanoma of skin, unspecified; Z20.822 Contact with and (suspected) exposure to COVID-19; E78.5 Hyperlipidemia, unspecified; F32.A Depression, unspecified; F17.220 Nicotine dependence, chewing tobacco, uncomplicated; I10 Essential (primary) hypertension; Z60.2 Problems related to living alone; G89.3 Neoplasm related pain (acute) (chronic); L89.159 Pressure ulcer of sacral region, unspecified stage; E78.00 Pure hypercholesterolemia, unspecified; L40.50 Arthropathic psoriasis, unspecified; Z28.21 Immunization not carried out because of patient refusal; Z85.820 Personal history of malignant melanoma of skin; Z90.49 Acquired absence of other specified parts of digestive tract; Z98.890 Other specified postprocedural states; Z79.899 Other long term (current) drug therapy; Z82.3 Family history of stroke; Z80.0 Family history of malignant neoplasm of digestive organs
CPT/HCPCS: 36415; 71045; 71275; 80048; 80053; 81001; 83605; 83690; 83880; 84145; 84484; 85025; 87040; 87086; 93005; 96361; 96365; 96375; 96376; 97139; J0456; J0692; J0696; J1650; J2270; J2405; J3370; J3490; J7050; Q9967; U0002

== ENCOUNTER 2021-09-22 09:55 | Outpatient (CLI) | payer MEDICARE ==
[2021-09-22] MEDS ORDERED: Acetaminophen 500 MG TAB ONE (17:21)
[2021-09-22] MEDS ORDERED: diphenhydrAMINE 25 MG CAP ONE (17:22)
[2021-09-22] MEDS ORDERED: diphenhydrAMINE 25 MG CAP PO SCH (17:30)
[2021-09-22] MEDS ORDERED: Acetaminophen 500 MG TAB PO SCH (17:30)
[2021-09-22] MEDS ORDERED: Furosemide 40 MG/4 ML VIAL SLOW IVP SCH (17:30)
== END 2021-09-22 09:56 | disposition home or self-care (01) ==
LOC: RAD 09:55
PROVIDERS: ATTEND Internal Medicine Critical Care Medicine
DX: R06.00 Dyspnea, unspecified (principal); J90 Pleural effusion, not elsewhere classified; I51.7 Cardiomegaly
CPT/HCPCS: 36430; 71046; 86850; 86900; 86901; 86920; P9016; J1940

== ENCOUNTER 2021-09-22 17:27 | Day surgery (SDC) | payer MEDICARE ==
[2021-09-22 23:18] LABS: Band 15 % (5-11); Eosinophils 1 % (0-10); Hemoglobin 9.9 g/dL (14.0-18.0); Hypochromia SLIGHT = 6-15 cells (100X) (0-5/hpf); Lymphocytes 4 % (21-51); MDiff Complete? YES; Mean Corpuscular HGB CONC 30.9 g/dL (32.0-36.0); Mean Corpuscular Hemoglobin 28.3 pg (27.0-31.0); Mean Corpuscular Volume 91.7 fL (78.0-98.0); Mean Platelet Volume 7.7 fL (7.4-10.4); Monocytes 13 % (0-10); Neutrophil 66 % (42-75); Platelet Count 97 thou/uL (130-400); Platelet Morphology Comment Appears Decreased; RBC Distribution Width 17.4 % (11.5-14.5); Reactive Lymphocytes 1 % (0-10); Red Blood Cell (RBC) Count 3.48 mill/uL (4.70-6.10); White Blood Cell (WBC) Count 10.5 thou/uL (4.8-10.8)
== END 2021-09-22 23:10 | disposition home or self-care (01) ==
LOC: ONC/OP 17:27
PROVIDERS: ATTEND Internal Medicine Hematology & Oncology
PROC: 30233N1 Transfusion of Nonautologous Red Blood Cells into Peripheral Vein, Percutaneous Approach (ICD-10-PCS; principal; 2021-09-22)
DX: D64.9 Anemia, unspecified (principal)
CPT/HCPCS: 36415; 85025